=== PATIENT | female | born 1990 | race Caucasian/White ===

== ENCOUNTER 2017-09-28 16:29 | Emergency (ER) | payer MEDICAID ==
[2017-09-28 16:38] VITALS: BP 131/86
--- NOTE | 2017-09-28 17:01 | ED Physician Documentation ---
PD HPI OPHTHO - Stated complaint Stated Complaint: EYE PAIN - Chief complaint Chief Complaint: Heent - History obtained from History obtained from: Patient - History of Present Illness Timing - onset: Other (Feeling like there is grit or sand in her eye today with blurry vision, she does not wear contacts. No recent illnesses.) Review of Systems Constitutional: denies: Fever, Chills Eyes: reports: Decreased vision, Discharge, Irritation. denies: Loss of vision , Photophobia Ears: denies: Loss of hearing, Ear pain PD PAST MEDICAL HISTORY - Past Medical History Cardiovascular: None Respiratory: Asthma Neuro: Seizure disorder Endocrine/Autoimmune: None GI: None : None Psych: Depression Musculoskeletal: Fibromyalgia Derm: None - Past Surgical History Past Surgical History: Yes General: Appendectomy - Present Medications Home Medications: Ambulatory Orders Medication Instructions Recorded Confirmed Albuterol [Ventolin Hfa] 2 puffs INH Q4H PRN 11/13/13 09/28/17 Gabapentin [Neurontin] 400 mg PO TID 11/13/13 09/28/17 Topiramate [Topamax] 200 mg PO HS 11/13/13 09/28/17 Mometasone/Formoterol [Dulera 100 1 inh PO DAILY 06/09/15 09/28/17 Mcg/5 Mcg Inhaler] Montelukast Sodium [Singulair] 10 mg PO DAILY 06/09/15 09/28/17 raNITIdine [Zantac] 150 mg PO DAILY 09/28/15 09/28/17 Cyclobenzaprine [Flexeril] 10 mg PO DAILY 10/03/16 09/28/17 Loratadine 10 mg PO DAILY 10/03/16 09/28/17 Acyclovir 800 mg PO 5XD 10 Days tablet 09/28/17 Tobramycin/Dexamethasone [Tobradex 1 drops OP QID #1 drops.susp 09/28/17 Eye Drops] - Allergies Allergies/Adverse Reactions: Allergies Allergy/AdvReac Type Severity Reaction Status Date / Time aspirin Allergy Intermediate Nausea Verified 09/28/17 16:38 morphine Allergy Intermediate Respiratory Verified 09/28/17 16:38 ondansetron Allergy Emesis Verified 09/28/17 16:39 [From Zofran (as hydrochloride)] paroxetine HCl * [From Paxil] Allergy Unknown Verified 09/28/17 16:38 - Social History Does the pt smoke?: No Smoking Status: Never smoker Does the pt drink ETOH?: No Does the pt have substance abuse?: No - Immunizations Immunizations are current?: No Immunizations: TDAP >10years/unknown - POLST Patient has POLST: No PD ED PE NORMAL - Vitals Vital signs reviewed: Yes - General General: Alert and oriented X 3, No acute distress - HEENT HEENT: PERRL, EOMI, Other (She has conjunctival inflammation laterally, on fluorescein examination there is a very small uptake that is diffuse on the superolateral part of the cornea. It is not necessarily dendritic per se.) - Neuro Neuro: Alert and oriented X 3 Eye Opening: Spontaneous Motor: Obeys Commands Verbal: Oriented GCS Score: 15 - Psych Psych: Normal mood Results - Vitals Vitals: Vital Signs - 24 hr 09/28/17 16:36 Temperature 36.3 C L Heart Rate 85 Respiratory 18 Rate Blood Pressure 131/86 H O2 Saturation 100 Oxygen O2 Source Room air PD MEDICAL DECISION MAKING - ED course ED course: Small amount of fluorescein uptake is concerning although not diagnostic for very early zoster ophthalmicus. She is treated with acyclovir and TobraDex. She is advised to see her eye doctor tomorrow. Departure - Departure Disposition: 01 Home, Self Care Clinical Impression: Conjunctivitis Qualifiers: Conjunctivitis type: acute Acute conjunctivitis type: unspecified Laterality: right Qualified Code(s): H10.31 - Unspecified acute conjunctivitis, right eye Condition: Good Record reviewed to determine appropriate education?: Yes Prescriptions: Acyclovir 800 mg PO 5XD 10 Days tablet Tobramycin/Dexamethasone [Tobradex Eye Drops] 1 drops OP QID #1 drops.susp Comments: As discussed, you have a very small amount of fluorescein dye uptake in the superolateral part of your cornea. It does not necessarily appear to be consistent with viral infection at this juncture, but is concerning for an early viral infection. Take the eyedrops and the antiviral pills and follow-up with your eye doctor tomorrow for reevaluation. Return if worse. Your blood pressure was elevated today on check into the emergency department. This does not mean that you have hypertension, it is a common phenomenon to come to the emergency department and have elevated blood pressure. I recommend that you see your primary care physician within the week to have it rechecked when you are feeling better.
== END 2017-09-28 17:24 | disposition home or self-care (01) ==
LOC: ED 16:29
DX: H10.31 Unspecified acute conjunctivitis, right eye (principal); R03.0 Elevated blood-pressure reading, without diagnosis of hypertension
CPT/HCPCS: 99283

== ENCOUNTER 2019-09-03 12:00 | Emergency (ER) | payer MEDICAID ==
--- NOTE | 2019-09-03 12:35 | ED Physician Documentation ---
PD HPI CHEST PAIN - Stated complaint Stated Complaint: CHEST PX - Chief complaint Chief Complaint: Cardiac - History obtained from History obtained from: Patient - History of Present Illness Timing - onset: Other (This is a 28-year-old woman with fibromyalgia, chronic back pain. History of palpitations. Had a negative Holter monitor for 72 hours last year for same, but was asymptomatic at the time. Had a similar episode starting half an hour ago where she had 4 strong heartbeats, now just feels like her heart is beating fast and is tired. She denies pedal edema, calf gain part, control, recent travel, or shortness of breath. No current chest pain.) Review of Systems Constitutional: reports: Fatigue. denies: Fever, Chills Cardiac: reports: Chest pain / pressure, Palpitations. denies: Pedal edema, Calf pain Respiratory: denies: Dyspnea, Cough GI: denies: Abdominal Pain PD PAST MEDICAL HISTORY - Past Medical History Cardiovascular: None Respiratory: Asthma Endocrine/Autoimmune: None GI: None : None Psych: Depression Musculoskeletal: Fibromyalgia Derm: None - Past Surgical History Past Surgical History: Yes General: Appendectomy - Present Medications Home Medications: Ambulatory Orders Medication Instructions Recorded Confirmed Albuterol [Ventolin Hfa] 2 puffs INH Q4H PRN 11/13/13 09/28/17 Gabapentin [Neurontin] 400 mg PO TID 11/13/13 09/28/17 Topiramate [Topamax] 200 mg PO HS 11/13/13 09/28/17 Mometasone/Formoterol [Dulera 100 1 inh PO DAILY 06/09/15 09/28/17 Mcg/5 Mcg Inhaler] Montelukast Sodium [Singulair] 10 mg PO DAILY 06/09/15 09/28/17 raNITIdine [Zantac] 150 mg PO DAILY 09/28/15 09/28/17 Cyclobenzaprine [Flexeril] 10 mg PO DAILY 10/03/16 09/28/17 Loratadine 10 mg PO DAILY 10/03/16 09/28/17 Acyclovir 800 mg PO 5XD 10 Days tablet 09/28/17 Tobramycin/Dexamethasone [Tobradex 1 drops OP QID #1 drops.susp 09/28/17 Eye Drops] - Allergies Allergies/Adverse Reactions: Allergies Allergy/AdvReac Type Severity Reaction Status Date / Time aspirin Allergy Intermediate Nausea Verified 09/03/19 12:13 morphine Allergy Intermediate Respiratory Verified 09/03/19 12:13 ondansetron Allergy Emesis Verified 09/03/19 12:13 [From Zofran (as hydrochloride)] paroxetine HCl * [From Paxil] Allergy Unknown Verified 09/03/19 12:13 - Social History Does the pt smoke?: No Smoking Status: Never smoker Does the pt drink ETOH?: No Does the pt have substance abuse?: No - Immunizations Immunizations are current?: No Immunizations: TDAP >10years/unknown - POLST Patient has POLST: No PD ED PE NORMAL - Vitals Vital signs reviewed: Yes - General General: Alert and oriented X 3, No acute distress, Other (She is quite somnolent and difficult to arouse, in fact on initial evaluation would not wake up to voice or light touch and did wake up with a sternal rub.) - HEENT HEENT: PERRL, EOMI - Neck Neck: Supple, no meningeal sign, No bony TTP - Cardiac Cardiac: Other (Tachycardic but regular without murmur) - Respiratory Respiratory: No respiratory distress, Clear bilaterally - Abdomen Abdomen: Non tender - Derm Derm: Normal color, Warm and dry - Extremities Extremities: No edema, No calf tenderness / cord - Neuro Neuro: Alert and oriented X 3, Normal speech Results - Vitals Vitals: Vital Signs - 24 hr 09/03/19 09/03/19 12:05 12:32 Temperature 36.3 C L Heart Rate 114 H Respiratory 18 Rate Blood Pressure 128/83 H Blood Pressure 144/102 H [Left] O2 Saturation 100 Oxygen O2 Source Room air - EKG (time done) 1117 Rate: Rate (enter#) (112) Rhythm: NSR [place]: Normal Intervals: Normal [place]. No: Prolonged QT QRS: Normal Ischemia: Normal ST segments Computer interpretation: Agree with computer - Labs Labs: Laboratory Tests 09/03/19 09/03/19 09/03/19 12:30 12:48 12:48 WBC 9.4 RBC 4.98 Hgb 14.7 Hct 45.5 MCV 91.4 MCH 29.5 MCHC 32.3 RDW 13.3 Plt Count 366 MPV 9.2 Neut # (Auto) 5.8 Lymph # (Auto) 2.6 [place] # (Auto) 0.6 Eos # (Auto) 0.3 Baso # (Auto) 0.1 Absolute Nucleated RBC 0.00 Nucleated RBC % 0.0 D-Dimer Sodium 142 Potassium 3.8 Chloride 107 Carbon Dioxide 26 Anion Gap 9.0 BUN 12 Creatinine 0.9 Estimated GFR (MDRD) 75 L Glucose 83 Calcium 10.0 Total Bilirubin 0.3 AST 21 ALT 20 Alkaline Phosphatase 71 Troponin I High Sens Total Protein 8.5 H Albumin 4.3 Globulin 4.2 Albumin/Globulin Ratio 1.0 Lipase 28 Urine Color Urine Clarity Urine pH Ur Specific [place] Urine Protein Urine Glucose (UA) Urine Ketones Urine Occult Blood Urine Nitrite Urine Bilirubin Urine Urobilinogen Ur Leukocyte Esterase Ur Microscopic Review Urine Culture Comments Urine HCG, Qual Urine Opiates Screen NEGATIVE Ur Oxycodone Screen NEGATIVE Urine Methadone Screen NEGATIVE Ur Propoxyphene Screen NEGATIVE Ur Barbiturates Screen NEGATIVE Ur Tricyclics Screen NEGATIVE Ur Phencyclidine Scrn NEGATIVE Ur Amphetamine Screen NEGATIVE U Methamphetamines Scrn NEGATIVE U Benzodiazepines Scrn NEGATIVE Urine Cocaine Screen NEGATIVE U Cannabinoids Screen NEGATIVE 09/03/19 09/03/19 09/03/19 12:48 12:48 13:11 WBC RBC Hgb Hct MCV MCH MCHC RDW Plt Count MPV Neut # (Auto) Lymph # (Auto) Gentry # (Auto) Eos # (Auto) Baso # (Auto) Absolute Nucleated RBC Nucleated RBC % D-Dimer 200.9 Sodium Potassium Chloride Carbon Dioxide Anion Gap BUN Creatinine Estimated GFR (MDRD) Glucose Calcium Total Bilirubin AST ALT Alkaline Phosphatase Troponin I High Sens < 2.3 L Total Protein Albumin Globulin Albumin/Globulin Ratio Lipase Urine Color YELLOW Urine Clarity CLEAR Urine pH 7.0 Ur Specific [place] 1.015 Urine Protein NEGATIVE Urine Glucose (UA) NEGATIVE Urine Ketones NEGATIVE Urine Occult Blood NEGATIVE Urine Nitrite NEGATIVE Urine Bilirubin NEGATIVE Urine Urobilinogen 0.2 (NORMAL) Ur Leukocyte Esterase NEGATIVE Ur Microscopic Review NOT INDICATED Urine Culture Comments NOT INDICATED Urine HCG, Qual NEGATIVE Urine Opiates Screen Ur Oxycodone Screen Urine Methadone Screen Ur Propoxyphene Screen Ur Barbiturates Screen Ur Tricyclics Screen Ur Phencyclidine Scrn Ur Amphetamine Screen U Methamphetamines Scrn U Benzodiazepines Scrn Urine Cocaine Screen U Cannabinoids Screen PD MEDICAL DECISION MAKING - ED course ED course: This is a 28-year-old woman who presents with resolved atypical chest pain, the history is most consistent with resolved PVCs. Her work-up here was negative including specific testing for ACS, PE. Departure - Departure Disposition: 01 Home, Self Care Clinical Impression: Atypical chest pain Condition: Good Record reviewed to determine appropriate education?: Yes Instructions: ED Chest Pain Atypical Unkn Cause Comments: As discussed, the history give is most consistent with premature ventricular contractions which are a benign process. That said you are a symptomatic here so I cannot prove this, however specific testing for more serious etiologies such as blood clots, heart disease were negative. Return for new or worsening symptoms. Follow-up with your primary care physician, next available appointment.
[2019-09-03 12:56] LABS: BASOPHILS # (AUTO) 0.1 10^3/uL (0.0-0.1); BASOPHILS % (AUTO) 0.7 %; EOSINOPHILS # (AUTO) 0.3 10^3/uL (0.0-0.7); EOSINOPHILS % (AUTO) 3.2 %; HGB - HEMOGLOBIN 14.7 g/dL (12.0-16.0); LYMPHOCYTES # (AUTO) 2.6 10^3/uL (1.5-3.5); LYMPHOCYTES % (AUTO) 27.5 %; MEAN CORPUSCULAR HEMOGLOBIN 29.5 pg (27.0-31.0); MEAN CORPUSCULAR HGB CONC 32.3 g/dL (32.0-36.0); MEAN CORPUSCULAR VOLUME 91.4 fL (81.0-99.0); MEAN PLATELET VOLUME 9.2 fL (7.9-10.8); MONOCYTES # (AUTO) 0.6 10^3/uL (0.0-1.0); NEUTROPHILS # (AUTO) 5.8 10^3/uL (1.5-6.6); NEUTROPHILS % (AUTO) 62.3 %; PLT - PLATELET COUNT 366 10^3/uL (130-450); RED BLOOD COUNT 4.98 10^6/uL (4.20-5.40); RED CELL DISTRIBUTION WIDTH 13.3 % (12.0-15.0); WHITE BLOOD COUNT 9.4 x10^3/uL (4.8-10.8)
[2019-09-03 13:06] LABS: MUDS CUTOFF CONCENTRATIONS CUTOFF CONC BELOW:
[2019-09-03 13:07] LABS: ALBUMIN 4.3 g/dL (3.2-5.5); BILIRUBIN,TOTAL 0.3 mg/dL (0.2-1.0); CREATININE 0.9 mg/dL (0.4-1.0); TOTAL PROTEIN 8.5 g/dL (6.7-8.2)
[2019-09-03 13:08] LABS: BILIRUBIN,URINE NEGATIVE (NEGATIVE); GLUCOSE, URINE (UA) NEGATIVE (NEGATIVE); KETONES,URINE (UA) NEGATIVE (NEGATIVE); LEUKOCYTE ESTERASE, URINE NEGATIVE (NEGATIVE); NITRITE,URINE NEGATIVE (NEGATIVE); OCCULT BLOOD,URINE NEGATIVE (NEGATIVE); PROTEIN,URINE NEGATIVE (NEGATIVE); UROBILINOGEN,URINE 0.2 (NORMAL) E.U./dL (NORMAL)
[2019-09-03 13:12] LABS: CLARITY,URINE CLEAR (CLEAR); HCG UR QUAL NEGATIVE
[2019-09-03 13:20] LABS: AMPHETAMINE SCREEN,URINE NEGATIVE (NEGATIVE); BENZODIAZEPINES SCREEN, URINE NEGATIVE (NEGATIVE); COCAINE SCREEN URINE NEGATIVE (NEGATIVE); METHADONE SCREEN, URINE NEGATIVE (NEGATIVE); METHAMPHETAMINES SCREEN, URINE NEGATIVE (NEGATIVE); OPIATE SCREEN, URINE NEGATIVE (NEGATIVE); OXYCODONE SCREEN, URINE NEGATIVE (NEGATIVE); PROPOXYPHENE SCREEN, URINE NEGATIVE (NEGATIVE); TRICYCLIC ANTIDEPRESSANT,URINE NEGATIVE (NEGATIVE)
[2019-09-03 13:44] VITALS: BP 122/77
== END 2019-09-03 13:45 | disposition home or self-care (01) ==
LOC: ED 12:00
DX: R07.89 Other chest pain (principal)
CPT/HCPCS: 36415; 80053; 80306; 81001; 81003; 81025; 83690; 84484; 85025; 85379; 87086; 93005; 99283; 99284

== ENCOUNTER 2021-11-08 09:09 | Emergency (ER) | payer MEDICAID ==
[2021-11-08 09:19] VITALS: BP 142/89
--- NOTE | 2021-11-08 09:24 | ED Physician Documentation ---
History of Present Illness - Stated complaint Stated Complaint: BODY ACHES/FEVER/CHILLS - Chief complaint Chief Complaint: Resp - History obtained from History obtained from: Patient - Additonal information Additional information: 31-year-old woman with history of asthma. Has been immunized against COVID with [employer], no booster. She has been sick for 10 days with cough, body aches, chills and fever. Her roommate subsequently tested positive for COVID a few days ago. She has not been tested for COVID but tried to go to her doctor's office for same but they were not offering COVID testing. 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 : None HEENT: None Psych: Depression Musculoskeletal: Fibromyalgia Derm: None - Past Surgical History Past Surgical History: Yes General: Appendectomy - Present Medications Home Medications: Ambulatory Orders Medication Instructions Recorded Confirmed Albuterol [Ventolin Hfa] 2 puffs INH Q4H PRN 11/13/13 09/28/17 Gabapentin [Neurontin] 400 mg PO TID 11/13/13 09/28/17 Topiramate [Topamax] 200 mg PO HS 11/13/13 09/28/17 Mometasone/Formoterol [Dulera 100 1 inh PO DAILY 06/09/15 09/28/17 Mcg/5 Mcg Inhaler] Montelukast Sodium [Singulair] 10 mg PO DAILY 06/09/15 09/28/17 raNITIdine [Zantac] 150 mg PO DAILY 09/28/15 09/28/17 Cyclobenzaprine [Flexeril] 10 mg PO DAILY 10/03/16 09/28/17 Loratadine 10 mg PO DAILY 10/03/16 09/28/17 Acyclovir 800 mg PO 5XD 10 Days tablet 09/28/17 Tobramycin/Dexamethasone [Tobradex 1 drops OP QID #1 drops.susp 09/28/17 Eye Drops] Benzonatate [Tessalon] 200 mg PO QID PRN #20 cap 11/08/21 predniSONE [Deltasone] 60 mg PO DAILY 5 Days #15 tablet 11/08/21 - Allergies Allergies/Adverse Reactions: Allergies Allergy/AdvReac Type Severity Reaction Status Date / Time aspirin Allergy Intermediate Nausea Verified 09/03/19 12:13 morphine Allergy Intermediate Respiratory Verified 09/03/19 12:13 ondansetron Allergy Emesis Verified 09/03/19 12:13 [From Zofran (as hydrochloride)] paroxetine HCl * [From Paxil] Allergy Unknown Verified 09/03/19 12:13 pseudoephedrine Allergy Dizziness Verified 11/08/21 09:16 [From Sudafed] - Social History Does the pt smoke?: No Smoking Status: Never smoker Does the pt drink ETOH?: No Does the pt have substance abuse?: No - Immunizations Immunizations are current?: No Immunizations: TDAP >10years/unknown - POLST Patient has POLST: No PD ED PE NORMAL - Vitals Vital signs reviewed: Yes - General General: Alert and oriented X 3, No acute distress - HEENT HEENT: Ears normal, Pharynx benign - Neck Neck: Supple, no meningeal sign, No bony TTP - Cardiac Cardiac: RRR, No murmur - Respiratory Respiratory: No respiratory distress (Mild expiratory wheezing, nonlabored without other focal findings.) - Abdomen Abdomen: Non tender - Back Back: No CVA TTP, No spinal TTP - Derm Derm: Normal color, Warm and dry - Extremities Extremities: No edema, No calf tenderness / cord - Neuro Neuro: Alert and oriented X 3, Normal speech Results - Vitals Vitals: Vital Signs - 24 hr 11/08/21 09:17 Temperature 36.6 C Heart Rate 120 H Respiratory 22 Rate Blood Pressure 142/89 H O2 Saturation 98 Oxygen O2 Source Room air PD MEDICAL DECISION MAKING - ED course ED course: 31-year-old woman with mild asthma exacerbation in the setting of viral URI, likely COVID and will test for same. We will treat with steroids for the wheezing and Tessalon for the cough. Departure - Departure Disposition: 01 Home, Self Care Clinical Impression: Viral syndrome, Asthma Condition: Good Record reviewed to determine appropriate education?: Yes Instructions: ED Viral Syndrome Prescriptions: predniSONE [Deltasone] 60 mg PO DAILY 5 Days #15 tablet Benzonatate [Tessalon] 200 mg PO QID PRN #20 cap PRN Reason: Cough Comments: Prescriptions were sent electronically to [facility] in [place]. You have a Covid test pending. You need to self quarantine until the result is done and negative. Do not leave your house. Do not get near anybody. The results should be done in 48 to 72 hours. We will call with a positive result, the fastest way to get a negative result for confirmation though is to go to the hospital website at [email or web address], click on the my [facility] tab and sign up for the patient portal. If any friends or family get sick and would like to have a Covid test done, but do not have signs or symptoms that would necessitate being hospitalized, there are multiple local options for Covid testing. [facility] keeps an updated list of testing and vaccination options at: [email or web address]. Forms: Activity restrictions
== END 2021-11-08 09:44 | disposition home or self-care (01) ==
LOC: ED 09:09
DX: U07.1 COVID-19 (principal); J45.909 Unspecified asthma, uncomplicated
CPT/HCPCS: 99283

== ENCOUNTER 2022-01-10 18:10 | Emergency (ER) | payer OTHER, MEDICAID ==
--- OUTSIDE RECORDS SUMMARY | 2022-01-10 18:41 | EXTERNAL MEDICAL SUMMARY RPT | Continuity of Care Document ---
:1990 Author Organization [facility] Address [address] [place] [address] Phone Care Team Providers Name Role Phone Ferrer Unavailable Unavailable Allergies No information. Encounters No information. Medications No information. Problems Procedures date description facility [id number] [facility] 20211021 [facility] Results No information. Vital Signs date measurement value source 20211021 weight_standard 102.97 lb 20211021 weight_metric 46.7 kg 20211021 temperature_standard 97.4 F 20211021 temperature_metric 36.33 C 20211021 respiration_rate 20 /min 20211021 height_standard 61 in 20211021 height_metric 154.94 cm 20211021 heart_rate 86 /min 20211021 BP_systolic 106 mm[Hg] 20211021 BP_diastolic 63 mm[Hg] 20211021 BMI 42.9 kg/m2 20211101 weight_standard 103.42 lb 20211101 weight_metric 46.91 kg 20211101 temperature_standard 98 F 20211101 temperature_metric 36.67 C 20211101 respiration_rate 20 /min 20211101 heart_rate 80 /min 20211101 BP_systolic 135 mm[Hg] 20211101 BP_diastolic 80 mm[Hg]
--- NOTE | 2022-01-10 18:44 | XRAY Report ---
PROCEDURE: Ankle 3 View RT INDICATIONS: Trauma TECHNIQUE: 3 views of the ankle were acquired. COMPARISON: 09/28/2015 FINDINGS: Bones: No fractures or dislocations. Ankle mortise is normally aligned. No suspicious bony lesions . Small plantar calcaneal spur. Soft tissues: No tibiotalar joint effusion. Achilles tendon appears normal. IMPRESSION: Right ankle without acute fracture or dislocation. Small right plantar calcaneal spur. If there is persistent clinical concern for a radiographically occult fracture, recommend immobilizat ion and repeat imaging in 10 to 14 days. Reviewed by: Que Hernandez MD on 01/10/2022 6:43 PM PDT Approved by: Que Hernandez MD on 01/10/2022 6:43 PM PDT Station ID: [id number]
[2022-01-10] MEDS ORDERED: ACETAMINOPHEN 325 MG TABLET PO STA (21:21)
[2022-01-10 21:34] VITALS: BP 122/77
--- NOTE | 2022-01-10 21:56 | ED Physician Documentation ---
PD HPI LOWER EXT INJURY - Stated complaint Stated Complaint: R LEG PAIN - Chief complaint Chief Complaint: Trauma Ext - History obtained from History obtained from: Patient - Additional information Additional information: Patient was at work this morning at 6:30 AM when she was carrying something through a doorway and rolled her right ankle and fell onto her leg. She reports injury to the right knee and right ankle. She has been able to ambulate but has mostly been laying in bed today as she worked overnight. Due to continued pain, patient presented to the emergency department.The pain is sharp and throbbing and worse with ambulation. She denies previous injuries to the extremity. She has not tried medication for the pain. There is no pain elsewhere. She did not hit her head or lose consciousness. 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 HEENT: None Psych: Depression, Anxiety Musculoskeletal: Fibromyalgia Derm: None - Past Surgical History Past Surgical History: Yes General: Appendectomy - Present Medications Home Medications: Ambulatory Orders Medication Instructions Recorded Confirmed Albuterol [Ventolin Hfa] 2 puffs INH Q4H PRN 11/13/13 01/10/22 Gabapentin [Neurontin] 400 mg PO TID 11/13/13 01/10/22 Topiramate [Topamax] 200 mg PO HS 11/13/13 01/10/22 Montelukast Sodium [Singulair] 10 mg PO DAILY 06/09/15 01/10/22 Duloxetine HCl [Cymbalta] 60 mg PO DAILY 01/10/22 01/10/22 - Allergies Allergies/Adverse Reactions: Allergies Allergy/AdvReac Type Severity Reaction Status Date / Time aspirin Allergy Intermediate Nausea Verified 01/10/22 18:17 morphine Allergy Intermediate Respiratory Verified 01/10/22 18:17 ondansetron Allergy Emesis Verified 01/10/22 18:17 [From Zofran (as hydrochloride)] paroxetine HCl * [From Paxil] Allergy Unknown Verified 01/10/22 18:17 pseudoephedrine Allergy Dizziness Verified 01/10/22 18:17 [From Sudafed] - Social History Does the pt smoke?: No Smoking Status: Never smoker Does the pt drink ETOH?: No Does the pt have substance abuse?: No - Immunizations Immunizations are current?: No Immunizations: TDAP >10years/unknown - POLST Patient has POLST: No PD ED PE NORMAL - General General: Alert and oriented X 3, No acute distress, Well developed/nourished - HEENT HEENT: Atraumatic, EOMI - Neck Neck: Supple, no meningeal sign, C-Spine cleared by NEXUS criteria - Cardiac Cardiac: RRR - Respiratory Respiratory: No respiratory distress, Clear bilaterally - Derm Derm: Normal color, Warm and dry - Extremities Extremities: No deformity - Neuro Neuro: No motor deficit, No sensory deficit, Normal speech - Psych Psych: Normal mood, Normal affect PD ED PE EXPANDED - Extremities Extremities: Tenderness (Lateral right ankle, Compartments of extremity are soft, Palpable distal pulses,), Right knee (Pain with range of motion, no laxity, no erythema, no swelling, no deformity), Pedal Pulses Present, Motor intact, Sensory intact Results - Vitals Vitals: Vital Signs - 24 hr 01/10/22 01/10/22 18:17 21:28 Temperature 36.5 C Heart Rate 100 97 Respiratory 16 14 Rate Blood Pressure 134/89 H 122/77 O2 Saturation 100 98 Oxygen O2 Source Room air PD MEDICAL DECISION MAKING - ED course ED course: Patient with mechanical injury presenting for evaluation of the right knee and ankle pain. No head injury or trauma elsewhere.No neuro or vascular deficits noted on exam.X-rays are negative for fracture or dislocation. Patient was given Aircast and crutches. She was instructed on continuing with supportive care and return precautions. Departure - Departure Disposition: 01 Home, Self Care Clinical Impression: Ankle injury Qualifiers: Encounter type: initial encounter Laterality: right Qualified Code(s): S99.911A - Unspecified injury of right ankle, initial encounter Knee injury Qualifiers: Encounter type: initial encounter Laterality: right Qualified Code(s): S89.91XA - Unspecified injury of right lower leg, initial encounter Condition: Stable Instructions: ED Sprain Ankle W X Ray, ED Sprain Knee Comments: The x-rays of your ankle and knee are both negative for a broken bone or a bone out of place. You likely have a sprain. You should use the Saul wrap and crutches as neededAs long as you are having pain when attempting to walk. You should additionally use ice and anti-inflammatory medication such as Motrin or Tylenol for pain. Please follow-up with your primary care doctor if the pain does not improve in a week. Forms: Activity restrictions Discharge Date/Time: 01/10/22 22:15
--- NOTE | 2022-01-10 22:31 | XRAY Report ---
PROCEDURE: Knee 2 View RT INDICATIONS: pain TECHNIQUE: 2 views of the right knee(s) were acquired. COMPARISON: None. FINDINGS: Bones: No fractures or dislocations. No suspicious bony lesions. Soft tissues: No joint effusion. No suspicious soft tissue calcifications. IMPRESSION: No fracture. No osseous lesion. If there are persistent symptoms or continued clinical concern for p athology, then repeat plain film radiographs (7-10 days) or advanced imaging (CT, MR, bone scan) shou ld be considered for further evaluation. Reviewed by: María Elena Holloway MD, PhD on 01/10/2022 10:30 PM PDT Approved by: María Elena Holloway MD, PhD on 01/10/2022 10:30 PM PDT Station ID: [id number]
== END 2022-01-10 22:15 | disposition home or self-care (01) ==
LOC: ED 18:10
DX: S99.911A Unspecified injury of right ankle, initial encounter (principal); S89.91XA Unspecified injury of right lower leg, initial encounter; X50.1XXA Overexertion from prolonged static or awkward postures, initial encounter; Y93.89 Activity, other specified; Y99.0 Civilian activity done for income or pay
CPT/HCPCS: 1040M; 73560; 73610; 99282; 99284; A9270

== ENCOUNTER 2022-03-08 18:41 | Emergency (ER) | payer MEDICAID ==
[2022-03-08] MEDS ORDERED: oxyCODONE 5 MG TABLET PO STA (19:01)
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
--- NOTE | 2022-03-08 20:19 | CT Report ---
PROCEDURE: HEAD WO INDICATIONS: head/neck inj TECHNIQUE: Noncontrast 4.5 mm thick angled axial sections acquired from the foramen magnum to the vertex. For r adiation dose reduction, the following was used: automated exposure control, adjustment of mA and/or kV according to patient size. COMPARISON: None. FINDINGS: Image quality: Excellent. CSF spaces: Basal cisterns are patent. No extra-axial fluid collections. Ventricles are normal in size and shape. Brain: No midline shift. No intracranial masses or hemorrhage. Bueno-white matter interface is norm al. Skull and face: Calvarium and visualized facial bones are intact, without suspicious lesions. Sinuses: Visualized sinuses and mastoids are clear. IMPRESSION: No acute intracranial finding. Reviewed by: Bill Nazario MD on 03/08/2022 8:18 PM PDT Approved by: Bill Nazario MD on 03/08/2022 8:18 PM PDT Station ID: [id number]
--- NOTE | 2022-03-08 20:22 | CT Report ---
PROCEDURE: CERVICAL SPINE WO INDICATIONS: head/neck inj TECHNIQUE: Noncontrast 3 mm thick sections acquired from the skull base to the T4 level. Sagittal and coronal r eformats were then constructed. For radiation dose reduction, the following was used: automated exp osure control, adjustment of mA and/or kV according to patient size. COMPARISON: None. FINDINGS: Image quality: Excellent. Bones: No fractures or dislocations. Visualized superior ribs are intact. Soft tissues: Numerous threshold enlarged and prominent bilateral cervical lymph nodes, left greater than right, with mild prominence of the bilateral supraclavicular lymph nodes also. IMPRESSION: No CT evidence of acute traumatic cervical spine injury. Bilateral cervical and supraclavicular lymphadenopathy is worrisome for metastatic disease or lymphop roliferative disorder, although a systemic infectious or inflammatory process could cause a similar a ppearance. Clinical correlation is requested. Follow-up to document resolution is recommended. Low th reshold for FNA to obtain a tissue diagnosis is also recommended. Reviewed by: Bill Nazario MD on 03/08/2022 8:21 PM PDT Approved by: Bill Nazario MD on 03/08/2022 8:21 PM PDT Station ID: [id number]
[2022-03-08 20:30] VITALS: BP 119/70
[2022-03-08] MEDS ORDERED: oxyCODONE/ACET 5/325 Prepack 4 PO STA (20:39)
== END 2022-03-08 20:52 | disposition home or self-care (01) ==
LOC: ED 18:41
DX: S09.90XA Unspecified injury of head, initial encounter (principal); S19.9XXA Unspecified injury of neck, initial encounter; W20.8XXA Other cause of strike by thrown, projected or falling object, initial encounter; R59.1 Generalized enlarged lymph nodes
CPT/HCPCS: 70450; 72125; 99282; 99284; A9270

== ENCOUNTER 2022-09-04 21:22 | Outpatient (CLI) | payer MEDICAID | END 2022-09-04 21:23 | disposition critical access hospital (66) | LOC: EMS 21:22 | DX: T39.392A Poisoning by other nonsteroidal anti-inflammatory drugs [NSAID], intentional self-harm, initial encounter (principal); T50.902A Poisoning by unspecified drugs, medicaments and biological substances, intentional self-harm, initial encounter; R42 Dizziness and giddiness; R53.83 Other fatigue | CPT/HCPCS: A0425; A0429; A0999 ==

== ENCOUNTER 2022-09-04 21:40 | Emergency (ER) | payer MEDICAID ==
[2022-09-04] MEDS ORDERED: MAG HYDROX/AL HYDROX/SIMETH 30 ML UDC PO STA (22:39)
[2022-09-04 22:51] LABS: MUDS CUTOFF CONCENTRATIONS CUTOFF CONC BELOW:
[2022-09-04 22:53] LABS: BILIRUBIN,URINE NEGATIVE (NEGATIVE); GLUCOSE, URINE (UA) NEGATIVE (NEGATIVE); KETONES,URINE (UA) NEGATIVE (NEGATIVE); LEUKOCYTE ESTERASE, URINE NEGATIVE (NEGATIVE); NITRITE,URINE NEGATIVE (NEGATIVE); OCCULT BLOOD,URINE NEGATIVE (NEGATIVE); PROTEIN,URINE NEGATIVE (NEGATIVE); UROBILINOGEN,URINE 0.2 (NORMAL) E.U./dL (NORMAL)
[2022-09-04 22:56] LABS: ACETAMINOPHEN < 10 ug/mL (10-30); ALBUMIN/GLOBULIN RATIO 1.1 (1.0-2.2); ALKALINE PHOSPHATASE 78 IU/L (42-121); ALT ALANINE AMINOTRANSFERASE 28 IU/L (10-60); AST ASPARTATE AMINOTRANSFERASE 32 IU/L (10-42); BILIRUBIN,TOTAL 0.8 mg/dL (0.2-1.0); BUN - BLOOD UREA NITROGEN 13 mg/dL (6-20); CALCIUM 9.2 mg/dL (8.5-10.3); CARBON DIOXIDE - CO2 20 mmol/L (21-32); CHLORIDE 107 mmol/L (101-111); CREATININE 0.7 mg/dL (0.4-1.0); ETOH - ETHANOL < 5.0 mg/dL; GFR - MDRD 98 (>89); GLUCOSE 90 mg/dL (70-100); LIPASE 23 U/L (22-51); SALICYLATE < 6.0 mg/dL; SODIUM 136 mmol/L (135-145); TOTAL PROTEIN 7.7 g/dL (6.7-8.2)
[2022-09-04 23:03] LABS: CLARITY,URINE CLEAR (CLEAR); HCG UR QUAL NEGATIVE
[2022-09-04 23:04] LABS: AMPHETAMINE SCREEN,URINE NEGATIVE (NEGATIVE); BARBITURATE SCREEN,UR NEGATIVE (NEGATIVE); BENZODIAZEPINES SCREEN, URINE NEGATIVE (NEGATIVE); COCAINE SCREEN URINE NEGATIVE (NEGATIVE); METHADONE SCREEN, URINE NEGATIVE (NEGATIVE); METHAMPHETAMINES SCREEN, URINE NEGATIVE (NEGATIVE); OPIATE SCREEN, URINE NEGATIVE (NEGATIVE); OXYCODONE SCREEN, URINE NEGATIVE (NEGATIVE); PROPOXYPHENE SCREEN, URINE NEGATIVE (NEGATIVE); THC CANNABINOID SCREEN, URINE NEGATIVE (NEGATIVE); TRICYCLIC ANTIDEPRESSANT,URINE NEGATIVE (NEGATIVE)
--- NOTE | 2022-09-05 03:35 | ED Physician Documentation ---
PD HPI OVERDOSE - Stated complaint Stated Complaint: SI/OD - Chief complaint Chief Complaint: MHE - History obtained from History obtained from: Patient, EMS - History of Present Illness Timing - onset: How many hours ago (3), Today Subtance(s) ingested: Multiple (Meloxicam (20 tabs) and ? some muscle relaxant (6 tabs)). No: EtOH, ASA, Tylenol Associated symptoms: Other (feeling mild nausea without vomiting. Mild lightheaded. Still has some feeling of might overdose more if were still at home; feeling safe here.). No: Altered mental status Contributing factors: Suicidal (Patient had an argument with her godmother who is her lives with her. The patient got upset and felt that she wanted to kill her self and took overdose of meloxicam and muscle relaxant. She then thought better and texted a friend what she had done. EMS was called.). No: Alchoholic, Substance abuse Similar symptoms before: Diagnosis (some depression with suicidal ideation in the past. No attempts.) Recently seen: Not recently seen Review of Systems Constitutional: denies: Fever, Chills Nose: denies: Rhinorrhea / runny nose, Congestion Throat: denies: Sore throat Respiratory: denies: Cough GI: reports: Nausea (mild). 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 : None HEENT: None Psych: Depression, Anxiety, Post traumatic stress disorder Musculoskeletal: Fibromyalgia Derm: None - Past Surgical History Past Surgical History: Yes General: Appendectomy - Present Medications Home Medications: Ambulatory Orders Medication Instructions Recorded Confirmed Albuterol [Ventolin Hfa] 2 puffs INH Q4H PRN 11/13/13 06/17/22 Gabapentin [Neurontin] 800 mg PO BID 11/13/13 06/17/22 Topiramate [Topamax] 200 mg PO HS 11/13/13 06/17/22 Montelukast Sodium [Singulair] 10 mg PO DAILY 06/09/15 06/17/22 Duloxetine HCl [Cymbalta] 60 mg PO DAILY 01/10/22 06/17/22 Cyclobenzaprine [Flexeril] 10 mg PO TID PRN 06/17/22 06/17/22 Meloxicam [Mobic] 7.5 mg PO DAILY 06/17/22 06/17/22 - Allergies Allergies/Adverse Reactions: Allergies Allergy/AdvReac Type Severity Reaction Status Date / Time aspirin Allergy Intermediate Nausea Verified 06/17/22 00:55 morphine Allergy Intermediate Respiratory Verified 06/17/22 00:55 ondansetron Allergy Emesis Verified 06/17/22 00:55 [From Zofran (as hydrochloride)] paroxetine HCl * [From Paxil] Allergy Unknown Verified 06/17/22 00:55 pseudoephedrine Allergy Dizziness Verified 06/17/22 00:55 [From Sudafed] ibuprofen AdvReac Cramps Verified 06/17/22 00:55 - Living Situation Living Situation: reports: With family Living Arrangement: reports: At home - Social History Does the pt smoke?: No Smoking Status: Never smoker Does the pt drink ETOH?: No Does the pt have substance abuse?: No - Immunizations Immunizations are current?: No Immunizations: TDAP >10years/unknown - POLST Patient has POLST: No PD ED PE NORMAL - Vitals Vital signs reviewed: Yes - General General: Alert and oriented X 3, No acute distress, Well developed/nourished - HEENT HEENT: Moist mucous membranes, Pharynx benign - Neck Neck: Supple, no meningeal sign, No adenopathy - Cardiac Cardiac: No murmur. No: RRR (tachycardic, regular. ) - Respiratory Respiratory: Clear bilaterally - Abdomen Abdomen: Normal bowel sounds, Soft, Non tender - Derm Derm: Normal color, Warm and dry - Extremities Extremities: Normal ROM s pain, No edema, No calf tenderness / cord - Neuro Neuro: Alert and oriented X 3, No motor deficit, Normal speech Eye Opening: Spontaneous Motor: Obeys Commands Verbal: Oriented GCS Score: 15 - Psych Psych: Normal mood Results - Vitals Vitals: Vital Signs - 24 hr 09/04/22 09/04/22 22:19 23:02 Temperature 36.6 C Heart Rate 136 H 71 Respiratory 14 14 Rate Blood Pressure 140/100 H 126/111 H O2 Saturation 100 100 Oxygen O2 Source Room air - Labs Labs: Laboratory Tests 09/04/22 09/04/22 09/04/22 22:31 22:31 22:42 Sodium 136 Potassium 4.0 Chloride 107 Carbon Dioxide 20 L Anion Gap 9.0 BUN 13 Creatinine 0.7 Estimated GFR (MDRD) 98 Glucose 90 Calcium 9.2 Total Bilirubin 0.8 AST 32 ALT 28 Alkaline Phosphatase 78 Total Protein 7.7 Albumin 4.0 Globulin 3.7 Albumin/Globulin Ratio 1.1 Lipase 23 TSH 1.14 Urine Color YELLOW Urine Clarity CLEAR Urine pH 6.0 Ur Specific Calhoun <=1.005 Urine Protein NEGATIVE Urine Glucose (UA) NEGATIVE Urine Ketones NEGATIVE Urine Occult Blood NEGATIVE Urine Nitrite NEGATIVE Urine Bilirubin NEGATIVE Urine Urobilinogen 0.2 (NORMAL) Ur Leukocyte Esterase NEGATIVE Ur Microscopic Review NOT INDICATED Urine Culture Comments NOT INDICATED Urine HCG, Qual NEGATIVE Salicylates < 6.0 Urine Opiates Screen NEGATIVE Ur Oxycodone Screen NEGATIVE Urine Methadone Screen NEGATIVE Ur Propoxyphene Screen NEGATIVE Acetaminophen < 10 L Ur Barbiturates Screen NEGATIVE Ur Tricyclics Screen NEGATIVE Ur Phencyclidine Scrn NEGATIVE Ur Amphetamine Screen NEGATIVE U Methamphetamines Scrn NEGATIVE U Benzodiazepines Scrn NEGATIVE Urine Cocaine Screen NEGATIVE U Cannabinoids Screen NEGATIVE Ethyl Alcohol < 5.0 PD MEDICAL DECISION MAKING - ED course Complexity details: considered differential (Intentional overdose with suicidal intent and then reconsidered and called for help. Feels uncertain about impulse control at this point. States will not hurt her self here. The meloxicam can lead to upset stomach and possibly acidosis. Can check blood test. Unknown muscle relaxant.), d/w patient ED course: The patient appears well on presentation except for tachycardia. The meloxicam can upset her stomach. Can give some antacid and fluids and nausea medicine. Unknown muscle relaxants so consideration for sedation and even the potential for abnormal heart rate and blood pressure. Some of the muscle relaxants can have more significant side effects, for example Flexeril ask as a tetracycline. We will get urine tox and give fluids and some medication. The patient does not need for discharge at this point with still some suicidal ideation and her self concern for impulse control. I think she may feel better after resting some in time in the ER. We will have social work talk with her in the morning. She is willing for help so does not seem in the purview of DCR. Departure - Departure Clinical Impression: Suicidal ideation Intentional overdose Qualifiers: Encounter type: initial encounter Qualified Code(s): T50.902A - Poisoning by unspecified drugs, medicaments and biological substances, intentional self-harm, initial encounter Condition: Stable Record reviewed to determine appropriate education?: Yes
[2022-09-05 06:32] LABS: BASOPHILS # (AUTO) 0.1 10^3/uL (0.0-0.1); EOSINOPHILS # (AUTO) 0.4 10^3/uL (0.0-0.7); HCT - HEMATOCRIT 40.5 % (37.0-47.0); LYMPHOCYTES % (AUTO) 18.9 %; MEAN CORPUSCULAR HEMOGLOBIN 28.8 pg (27.0-31.0); MEAN CORPUSCULAR HGB CONC 32.1 g/dL (32.0-36.0); MEAN CORPUSCULAR VOLUME 89.8 fL (81.0-99.0); MEAN PLATELET VOLUME 9.3 fL (7.9-10.8); MONOCYTES # (AUTO) 0.7 10^3/uL (0.0-1.0); MONOCYTES % (AUTO) 6.2 %; NEUTROPHILS # (AUTO) 7.3 10^3/uL (1.5-6.6); NEUTROPHILS % (AUTO) 69.5 %; PLT - PLATELET COUNT 332 10^3/uL (130-450); RED BLOOD COUNT 4.51 10^6/uL (4.20-5.40); WHITE BLOOD COUNT 10.5 x10^3/uL (4.8-10.8)
--- NOTE | 2022-09-05 07:40 | ED Physician Documentation ---
ED Addendum - Addendum Addendum: 09/05/22 19:20 Patient 31-year-old female presenting to the emergency department after acute overdose with suicidal ideation. Initially seen by off going physician, please see their documentation for further detail.Patient monitored carefully throughout my shift. He did have interview with telepsych. At this time recommending voluntary placement. We will be signing out to the oncoming physician, please see their documentation for further detail.
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
--- NOTE | 2022-09-06 10:25 | TELEPSYCH PHYS NOTE ---
Telepsych Consultation Note Consult: Name: Janeth Almendarez : 1990 Date:09/06/2022 Time: 1:21 PM Location of patient: [facility] Location of doctor: [place] Spoke with: Dr. hunter HPI: per initial evaluation 09/05/22: 31y/o swf with h/o PTSD comes in with c/o feeling depressed and making a suicide attempt by OD. PT says she had been depressed for a while and thought of suicide before, wrote a note but this is the first time she has gone through with her thoughts. She does have a h/o self harm but this was the first time she intended to end her life. She continues to say it would not matter if she . She took the whole bottle of pills with the thought that life does not matter. reports the patient now reported feeling better with a night of sleep and wanting to go home. after reviewing the psychiatrist note and evaluation. Plan: recommend that the patient have a DCR evaluation as the patient continues to be high risk and no changes in her social determinants contributing to her presentations List names and roles of persons who participated in consult: Dr. hunter
--- NOTE | 2022-09-06 13:32 | ED Physician Documentation ---
ED Addendum - Addendum Addendum: 09/06/22 13:30 Patient received a signout from outgoing physician, please see their do cumentation for further detail. In short patient being evaluated in the emergency department after intentional suicide attempt. Overdosed on meloxicam and muscle relaxers. Was medically cleared and evaluated by telepsychiatry. Initial recommendation was for voluntary inpatient treatment. This morning patient awakens, feeling significantly better. Denies any ongoing suicidal or homicidal ideation. Denies any plan for self-harm. Evaluated by social work who did arrange for outpatient follow-up. Discussed the case directly with telepsychiatry who asked for DCR evaluation. Patient was subsequently evaluated by DCR and will not be detained at this time. Patient feels comfortable with plan for discharge and continues to deny suicidal or homicidal ideation. Clear return precautions and follow-up instructions given prior to discharge.
[2022-09-06 13:54] VITALS: BP 134/83
== END 2022-09-06 13:53 | disposition home or self-care (01) ==
LOC: EDUNIT# → ED 21:40
DX: F33.2 Major depressive disorder, recurrent severe without psychotic features (principal); F43.12 Post-traumatic stress disorder, chronic; T39.392A Poisoning by other nonsteroidal anti-inflammatory drugs [NSAID], intentional self-harm, initial encounter; R00.0 Tachycardia, unspecified; Z20.822 Contact with and (suspected) exposure to COVID-19
CPT/HCPCS: 36415; 80053; 80306; 80307; 80320; 80329; 81003; 81025; 83690; 84443; 85025; 87635; 90834; 99283; 99284; A9270; 81001; 87086

== ENCOUNTER 2023-01-05 11:18 | Outpatient (CLI) | payer MEDICAID ==
[2023-01-06 07:10] LABS: DHEA-SULFATE 69.6 ug/dL (84.8-378.0); SEX HORM BINDING GLOB SERUM 31.9 nmol/L (24.6-122.0)
== END 2023-01-05 11:19 | disposition home or self-care (01) ==
LOC: LAB 11:18
PROVIDERS: ATTEND Nurse Practitioner
DX: N92.6 Irregular menstruation, unspecified (principal)
CPT/HCPCS: 36415; 82627; 82670; 84270

== ENCOUNTER 2023-02-10 16:29 | Emergency (ER) | payer MEDICAID ==
[2023-02-10 16:36] VITALS: BP 140/90
--- NOTE | 2023-02-10 17:14 | ED Physician Documentation ---
PD HPI HEADACHE - Stated complaint Stated Complaint: HEAD PX - Chief complaint Chief Complaint: Neuro - History obtained from History obtained from: Patient - History of Present Illness Timing - onset: Today Timing - onset during: Rest Timing - duration: Days (1) Timing - details: Gradual onset Pain level max: 5 Pain level now: 0 Quality: No: Thunderclap, Throbbing, Aching, Stabbing, Tightness, Like head is exploding Associated symptoms: No: Fever, Stiff neck, Nausea, Vomiting, Weakness, Numbness, Syncope, Seizure Contributing factors: No: Anticoagulated - Additional information Additional information: 32-year-old female presents to the emergency department complaining of sharp shooting pains on the left side of the face that go up by the left eye or so metimes down to the cheek. Started yesterday. Seems to occur randomly. No headache with this. No visual changes. Nothing makes it better or worse. No fevers, vomiting, nausea Review of Systems Constitutional: denies: Fever, Chills GI: denies: Vomiting, Diarrhea Skin: denies: Rash Musculoskeletal: denies: Neck pain, Back pain Neurologic: denies: Headache PD PAST MEDICAL HISTORY - Past Medical History Past Medical History: Yes Cardiovascular: None Respiratory: Asthma Neuro: Migraines Endocrine/Autoimmune: None GI: None [employer]ATOR: None : None HEENT: None Psych: Depression, Anxiety, Post traumatic stress disorder, Other Musculoskeletal: Fibromyalgia Derm: None Other Past Medical History: SI attempt - Past Surgical History Past Surgical History: Yes General: Appendectomy - Present Medications Home Medications: Ambulatory Orders Medication Instructions Recorded Confirmed Albuterol [Ventolin Hfa] 2 puffs INH Q4H PRN 11/13/13 02/10/23 Gabapentin [Neurontin] 800 mg PO TID 11/13/13 02/10/23 Topiramate [Topamax] 100 mg PO BID 11/13/13 02/10/23 Montelukast Sodium [Singulair] 10 mg PO DAILY 06/09/15 02/10/23 Cyclobenzaprine [Flexeril] 10 mg PO BID 06/17/22 02/10/23 DULoxetine [Cymbalta] 20 mg ORAL BID 09/05/22 02/10/23 Galcanezumab-Gnlm [Emgality] 120 mg SQ Q28D 09/05/22 02/10/23 Loratadine [Allergy Relief] 10 mg PO DAILY 09/05/22 02/10/23 Meclizine HCl [Motion Sickness] 25 mg PO DAILY PRN 09/05/22 02/10/23 Mometasone/Formoterol [Dulera 50 1 puffs IH BID 09/05/22 02/10/23 Mcg-5 Mcg Inhaler] Sumatriptan Succinate [Imitrex] 50 mg PO PRN PRN 09/05/22 02/10/23 EPINEPHrine [Epipen Jr] 0.15 mg IM ONCE PRN 02/10/23 02/10/23 Medroxyprogesterone Acetate 104 mg SQ ONCE 02/10/23 02/10/23 [Depo-Subq Provera 104] carBAMazepine [Tegretol Xr] 100 mg PO BID #60 ea 02/10/23 - Allergies Allergies/Adverse Reactions: Allergies Allergy/AdvReac Type Severity Reaction Status Date / Time aspirin Allergy Intermediate Nausea Verified 02/10/23 16:32 morphine Allergy Intermediate Respiratory Verified 02/10/23 16:32 basil Allergy Anaphylaxis Verified 02/10/23 17:06 dex Allergy Anaphylaxis Verified 02/10/23 17:06 ondansetron Allergy Emesis Verified 02/10/23 16:32 [From Zofran (as hydrochloride)] paroxetine HCl * [From Paxil] Allergy Unknown Verified 02/10/23 16:32 pseudoephedrine Allergy Dizziness Verified 02/10/23 16:32 [From Sudafed] ibuprofen AdvReac Cramps Verified 02/10/23 16:32 - Social History Does the pt smoke?: No Smoking Status: Never smoker Does the pt drink ETOH?: No Does the pt have substance abuse?: No - Immunizations Immunizations are current?: No Immunizations: TDAP >10years/unknown - POLST Patient has POLST: No PD ED PE NORMAL - Vitals Vital signs reviewed: Yes - General General: Alert and oriented X 3, No acute distress - HEENT HEENT: PERRL, Ears normal, Moist mucous membranes, Pharynx benign - Neck Neck: Supple, no meningeal sign, Thyroid normal - Cardiac Cardiac: RRR - Respiratory Respiratory: No respiratory distress, Clear bilaterally - Abdomen Abdomen: Soft, Non tender, Non distended - Derm Derm: Warm and dry - Extremities Extremities: No edema - Neuro Neuro: Alert and oriented X 3, turpentiner 2-12 intact, No motor deficit, No sensory deficit, Normal speech Eye Opening: Spontaneous Motor: Obeys Commands Verbal: Oriented GCS Score: 15 - Psych Psych: Normal mood, Normal affect - Free text exam Free text exam: No temporal artery tenderness Results - Vitals Vitals: Vital Signs - 24 hr 02/10/23 16:32 Temperature 36.5 C Heart Rate 90 Respiratory 16 Rate Blood Pressure 140/90 H O2 Saturation 98 Oxygen O2 Source Room air PD Medical Decision Making - ED course Complexity details: considered differential, d/w patient ED course: Patient currently asymptomatic. Symptoms sound concerning for trigeminal neuralgia. We will trial her on Tegretol and see how she progresses. Normal examination currently. Normal neuro exam. Patient counseled regarding signs and symptoms for which I believe and urgent re-evaluation would be necessary. Patient with good understanding of and agreement to plan and is comfortable going home at this time This document was made in part using voice recognition software. While efforts are made to proofread this document, sound alike and grammatical errors may occur. Departure - Departure Disposition: 01 Home, Self Care Clinical Impression: Trigeminal neuralgia of left side of face Condition: Good Instructions: ED Neuralgia Trigeminal Follow-Up: your,doctor in 1 week [Other] Prescriptions: carBAMazepine [Tegretol Xr] 100 mg PO BID #60 ea Comments: Please follow-up with your doctor for further care. Please return if you worsen. It appears that you may have trigeminal neuralgia. The Tegretol dosing can be increased if your symptoms are not controlled. Please contact your doctor to increase the dosage as needed. Your prescriptions were sent to [facility] in [place]. Discharge Date/Time: 02/10/23 17:39
[2023-02-10] MEDS ORDERED: CHERRY SYRUP 10 ML UDC PO ONE (17:27)
[2023-02-10] MEDS ORDERED: DEXAMETHASONE 10 MG/ML VIAL PO STA (17:27)
--- OUTSIDE RECORDS SUMMARY | 2023-02-10 17:50 | EXTERNAL MEDICAL SUMMARY RPT | Continuity of Care Document ---
:1990 Author Organization [place] Address [address] [place] [address] Phone Care Team Providers Name Role Phone Denis Ferrer Unavailable Unavailable Allergies and Intolerances date description facility type (no date) [facility] (unknown) (no date) latex [facility] (unknown) (no date) morphine [facility] (unknown) (no date) ondansetron [facility] (unknown) (no date) paroxetine [facility] (unknown) (no date) pseudoephedrine [facility] (unknown) (no date) sertraline [facility] (unknown) Encounters No information. Functional Status No information. Immunizations No information. Medications No information. Problems date description facility 2022-12-15 00:00 Ankle sprain and strain [facility] Procedures date description facility 2022-12-15 00:00 X-ray of left ankle, three or more view s [facility] 2022-12-15 00:00 X-ray of right ankle, three or more vie ws [facility] Results/Labs test date author facility value unit interpret ation Result panel 1 (unknown) (no date) (unknown) (unknown) (no value) (units (un known) unknown) (unknown) (no date) (unknown) (unknown) 12/15/22 (units (unkn own) unknown) (unknown) (no date) (unknown) (unknown) [id number] (units (unk nown) Street unknown) (unknown) (no date) (unknown) (unknown) Accession (units (unk nown) Number: unknown) [id number] (unknown) (no date) (unknown) (unknown) Accession (units (unk nown) Number: unknown) [id number] (unknown) (no date) (unknown) (unknown) Age/Sex: 32 / (units (unknown) F Date of unknown) Service: (unknown) (no date) (unknown) (unknown) CLAUDIO Mcdonald (units (unknown) [id number] unknown) (unknown) (no date) (unknown) (unknown) Approved by: (units ( unknown) natalya Brown) Octavio on 12/15/2022 at 20:40 (unknown) (no date) (unknown) (unknown) Approved by: (units ( unknown) natalya Brown) Octavio on 12/15/2022 at 20:42 (unknown) (no date) (unknown) (unknown) Bones: No (units (unk nown) fractures or unknown) dislocations. Ankle mortise is normally aligned. No (unknown) (no date) (unknown) (unknown) COMPARISON[facility], [facility], XR ANKLE RT MIN 3V, 02/28/2020, 23:49. (unknown) (no date) (unknown) (unknown) : (units (unkn own) 1990 unknown) Acct:[id number] (unknown) (no date) (unknown) (unknown) Dictated by: (units ( unknown) natalya Brown) Octavio on 12/15/2022 at 20:39 (unknown) (no date) (unknown) (unknown) Dictated by: (units ( unknown) natalya Brown) Octavio on 12/15/2022 at 20:41 (unknown) (no date) (unknown) (unknown) FINDINGS: (units (unk nown) unknown) (unknown) (no date) (unknown) (unknown) IMPRESSION: (units (u nknown) Intact left unknown) ankle. (unknown) (no date) (unknown) (unknown) IMPRESSION: (units (u nknown) Intact right unknown) ankle. (unknown) (no date) (unknown) (unknown) INDICATIONS: (units ( unknown) fall unknown) (unknown) (no date) (unknown) (unknown) [facility] unknown) (unknown) (no date) (unknown) (unknown) Loc: ED (units (unkn own) unknown) (unknown) (no date) (unknown) (unknown) [id number] (units (un known) unknown) (unknown) (no date) (unknown) (unknown) Ordering (units (unkn own) Provider: unknown) Dom Andrade D.O. (unknown) (no date) (unknown) (unknown) PROCEDURE: XR (units (unknown) ANKLE LT MIN 3V unknown) (unknown) (no date) (unknown) (unknown) PROCEDURE: XR (units (unknown) ANKLE RT MIN 3V unknown) (unknown) (no date) (unknown) (unknown) Patient: (units (unkn own) Vivek Almendarez unknown) Avelina MR#: (unknown) (no date) (unknown) (unknown) Procedure: XR (units (unknown) ankle LT min 3V unknown) (unknown) (no date) (unknown) (unknown) Procedure: XR (units (unknown) ankle RT min 3V unknown) (unknown) (no date) (unknown) (unknown) Signed (units (unkn own) unknown) (unknown) (no date) (unknown) (unknown) Soft tissues: (units (unknown) No tibiotalar unknown) joint effusion. Achilles tendon appears normal. (unknown) (no date) (unknown) (unknown) TECHNIQUE: 3 (units ( unknown) views of the unknown) ankle were acquired. (unknown) (no date) (unknown) (unknown) XRay Report (units (u nknown) unknown) (unknown) (no date) (unknown) (unknown) bony lesions. (units (unknown) Tiny plantar unknown) calcaneal spur (unknown) (no date) (unknown) (unknown) bony lesions. (units (unknown) Tiny plantar unknown) calcaneal spur. (unknown) (no date) (unknown) (unknown) suspicious (units (un known) unknown) Result panel 2 (unknown) (no (unknown) (unknown) (no value) (units (unk nown) date) unknown) (unknown) (no (unknown) (unknown) 'MORPHINE (units (unkn own) date) unknown) (unknown) (no (unknown) (unknown) 'on clouds' (units (un known) date) unknown) (unknown) (no (unknown) (unknown) (Neurontin) (units (un known) date) unknown) (unknown) (no (unknown) (unknown) (Reglan) vomiting (units (unknown) date) #10 tabs unknown) (unknown) (no (unknown) (unknown) [id number] (units (unkn own) date) unknown) (unknown) (no (unknown) (unknown) 12/15/22 20:11 (units (unknown) date) unknown) (unknown) (no (unknown) (unknown) 12/15/22 (units (unkno wn) date) unknown) (unknown) (no (unknown) (unknown) 1 tab PO BID Qty: (units (unknown) date) 0 unknown) (unknown) (no (unknown) (unknown) 1 tab PO Q8H PRN (units (unknown) date) (Reason: pain) unknown) Qty: 20 0RF (unknown) (no (unknown) (unknown) 10 mg PO BEDTIME (units (unknown) date) unknown) (unknown) (no (unknown) (unknown) 10 mg PO Q6H PRN (units (unknown) date) (Reason: nausea unknown) and vomiting) Qty: 10 0RF (unknown) (no (unknown) (unknown) 10 mg PO QDAY (units ( unknown) date) Qty: 30 6RF unknown) (unknown) (no (unknown) (unknown) 10 mg PO TID PRN (units (unknown) date) (Reason: pain) unknown) Qty: 14 0RF (unknown) (no (unknown) (unknown) 10 mg PO TID (units (u nknown) date) unknown) (unknown) (no (unknown) (unknown) 10-30mg PO (units (unk nown) date) bedtime; unknown) (unknown) (no (unknown) (unknown) 100 mg PO BID (units ( unknown) date) Qty: 60 6RF unknown) (unknown) (no (unknown) (unknown) 2 inh INH BID (units ( unknown) date) Qty: 1 12RF unknown) (unknown) (no (unknown) (unknown) 20 mg PO DAILY (units (unknown) date) Qty: 30 0RF unknown) (unknown) (no (unknown) (unknown) 20:07 (units (unkno wn) date) unknown) (unknown) (no (unknown) (unknown) 4 tabs/day (24hr) (units (unknown) date) PO unknown) (unknown) (no (unknown) (unknown) 40 mg PO BEDTIME (units (unknown) date) unknown) (unknown) (no (unknown) (unknown) 500 mg PO QID (units ( unknown) date) Qty: 40 0RF unknown) (unknown) (no (unknown) (unknown) 800 mg PO TID (units ( unknown) date) Qty: 270 3RF unknown) (unknown) (no (unknown) (unknown) 800 mg PO TID (units ( unknown) date) Qty: 30 0RF unknown) (unknown) (no (unknown) (unknown) ALMOST (units (unkno wn) date) unknown) (unknown) (no (unknown) (unknown) Age/Sex: 32 / F (units (unknown) date) unknown) (unknown) (no (unknown) (unknown) Allergies (units (unkn own) date) unknown) (unknown) (no (unknown) (unknown) Allergy/AdvReac (units (unknown) date) Type Severity unknown) Reaction Status Date / Time (unknown) (no (unknown) (unknown) BAD RASH' (units (unkn own) date) unknown) (unknown) (no (unknown) (unknown) Blood Pressure (units (unknown) date) 117/77 12/15/22 unknown) 20:07 (unknown) (no (unknown) (unknown) Blood Pressure (units (unknown) date) 117/77 unknown) (unknown) (no (unknown) (unknown) Chief Complaint: (units (unknown) date) Extremity Injury, unknown) Lower (unknown) (no (unknown) (unknown) Controlled type 2 (units (unknown) date) diabetes mellitus unknown) without complication, without long-term (unknown) (no (unknown) (unknown) Course (units (unkno wn) date) unknown) (unknown) (no (unknown) (unknown) : 1990 (units (unknown) date) Acct:[id number] unknown) (unknown) (no (unknown) (unknown) Date of Service: (units (unknown) date) 12/15/22 unknown) (unknown) (no (unknown) (unknown) Departure (units (unkn own) date) unknown) (unknown) (no (unknown) (unknown) Discharge Plan (units (unknown) date) unknown) (unknown) (no (unknown) (unknown) Dose Instruction: (units (unknown) date) unknown) (unknown) (no (unknown) (unknown) ED Orders (units (unkn own) date) unknown) (unknown) (no (unknown) (unknown) ER Physician: (units ( unknown) date) Dom Andrade D.O. unknown) (unknown) (no (unknown) (unknown) EVERYTHING (units (unk nown) date) unknown) (unknown) (no (unknown) (unknown) Emergency Report (units (unknown) date) unknown) (unknown) (no (unknown) (unknown) Exam (units (unkno wn) date) unknown) (unknown) (no (unknown) (unknown) Family History (units (unknown) date) (Reviewed 11/01/21 unknown) @ 19:30 by Rachel Scott DO) (unknown) (no (unknown) (unknown) General (units (unkno wn) date) unknown) (unknown) (no (unknown) (unknown) HPI - Extremity (units (unknown) date) Injury (Lower) unknown) (unknown) (no (unknown) (unknown) Home Medications (units (unknown) date) unknown) (unknown) (no (unknown) (unknown) Denis Ferrer, (units (unknown) date) , [place] [Primary unknown) Care Provider] (unknown) (no (unknown) (unknown) Hypothyroidism, (units (unknown) date) unspecified type unknown) (unknown) (no (unknown) (unknown) Initial Vital (units ( unknown) date) Signs unknown) (unknown) (no (unknown) (unknown) Initial Vital (units ( unknown) date) Signs: unknown) (unknown) (no (unknown) (unknown) [facility] (units (unknown) date) [address] [place] [address] Street unknown) [place] [address] (unknown) (no (unknown) (unknown) KILLED ME' (units (unk nown) date) unknown) (unknown) (no (unknown) (unknown) Medication (units (unk nown) date) Instructions unknown) Recorded Confirmed (unknown) (no (unknown) (unknown) Medication (units (unk nown) date) Instructions unknown) Recorded (unknown) (no (unknown) (unknown) Mode of arrival: (units (unknown) date) Wheelchair unknown) (unknown) (no (unknown) (unknown) Mother (units (unkno wn) date) 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 (units (unknown) date) CARE W/NEW PCP unknown) PRIOR TO ANY FUTURE FILLS. PLEASE CALL TO (unknown) (no (unknown) (unknown) Patient History (units (unknown) date) unknown) (unknown) (no (unknown) (unknown) Patient: (units (unkno wn) date) Vivek Almendarez K unknown) MR#: M (unknown) (no (unknown) (unknown) Prescriptions: (units (unknown) date) unknown) (unknown) (no (unknown) (unknown) Previous Rx's (units ( unknown) date) unknown) (unknown) (no (unknown) (unknown) Pulse Oximetry (units (unknown) date) 100 12/15/22 20:07 unknown) (unknown) (no (unknown) (unknown) Pulse Oximetry (units (unknown) date) 100 unknown) (unknown) (no (unknown) (unknown) Pulse Rate 107 H (units (unknown) date) 12/15/22 20:07 unknown) (unknown) (no (unknown) (unknown) Pulse Rate 107 H (units (unknown) date) unknown) (unknown) (no (unknown) (unknown) Referrals: (units (unk nown) date) unknown) (unknown) (no (unknown) (unknown) Related Data (units (u nknown) date) unknown) (unknown) (no (unknown) (unknown) Respiratory Rate (units (unknown) date) 16 12/15/22 20:07 unknown) (unknown) (no (unknown) (unknown) Respiratory Rate (units (unknown) date) 16 unknown) (unknown) (no (unknown) (unknown) Rx Instructions: (units (unknown) date) unknown) (unknown) (no (unknown) (unknown) SCHED. APPT (units (un known) date) 04/08/20 unknown) (unknown) (no (unknown) (unknown) See Rx (units (unkno wn) date) Instructions PO unknown) .COMPLEX Qty: 9 6RF (unknown) (no (unknown) (unknown) See Rx (units (unkno wn) date) Instructions PO unknown) BEDTIME Qty: 90 3RF (unknown) (no (unknown) (unknown) Signed By: (units (unk nown) date) unknown) (unknown) (no (unknown) (unknown) Smoking Status: (units (unknown) date) Never smoker unknown) (unknown) (no (unknown) (unknown) Social History (units (unknown) date) (Reviewed 11/01/21 unknown) @ 19:30 by Rachel Scott DO) (unknown) (no (unknown) (unknown) Source: patient (units (unknown) date) and family unknown) (unknown) (no (unknown) (unknown) Stated Complaint: (units (unknown) date) Fell/pain to both unknown) legs (unknown) (no (unknown) (unknown) Status post (units (un known) date) appendectomy unknown) (unknown) (no (unknown) (unknown) Substance Use (units ( unknown) date) Type: marijuana unknown) (unknown) (no (unknown) (unknown) Surgical History (units (unknown) date) (Reviewed 11/01/21 unknown) @ 19:30 by Rachel Scott DO) (unknown) (no (unknown) (unknown) Temperature 97.9 (units (unknown) date) F 12/15/22 20:07 unknown) (unknown) (no (unknown) (unknown) Temperature 97.9 (units (unknown) date) F unknown) (unknown) (no (unknown) (unknown) Time Seen by (units (u nknown) date) Provider: 12/15/22 unknown) 20:49 (unknown) (no (unknown) (unknown) VOMITING (units (unkno wn) date) unknown) (unknown) (no (unknown) (unknown) Vital Signs - 8 (units (unknown) date) hr unknown) (unknown) (no (unknown) (unknown) Vital Signs (units (un known) date) unknown) (unknown) (no (unknown) (unknown) Vital signs: (units (u nknown) date) unknown) (unknown) (no (unknown) (unknown) WORSE' (units (unkno wn) date) unknown) (unknown) (no (unknown) (unknown) XR ankle LT min (units (unknown) date) 3V Stat unknown) (unknown) (no (unknown) (unknown) XR ankle RT min (units (unknown) date) 3V Stat unknown) (unknown) (no (unknown) (unknown) [From SUDAFED] (units (unknown) date) unknown) (unknown) (no (unknown) (unknown) [ (units (unkn own) date) VITAMIN] 1 tab PO unknown) BID ##0 10/06/17 04/23/20 (unknown) (no (unknown) (unknown) [ (units (unkn own) date) VITAMIN] unknown) (unknown) (no (unknown) (unknown) alcohol intake (units (unknown) date) frequency: unknown) holidays/special occasions only (unknown) (no (unknown) (unknown) alcohol intake: (units (unknown) date) never unknown) (unknown) (no (unknown) (unknown) amitriptyline 10 (units (unknown) date) mg tablet See Rx unknown) Instructions PO BEDTIME #90 08/15/19 (unknown) (no (unknown) (unknown) amitriptyline 10 (units (unknown) date) mg tablet unknown) (unknown) (no (unknown) (unknown) cephalexin 500 mg (units (unknown) date) capsule 500 mg PO unknown) QID #40 caps 04/10/20 (unknown) (no (unknown) (unknown) cephalexin 500 mg (units (unknown) date) capsule unknown) (unknown) (no (unknown) (unknown) current use of (units (unknown) date) insulin unknown) (unknown) (no (unknown) (unknown) cyclobenzaprine (units (unknown) date) 10 mg tablet 10 mg unknown) PO TID 03/27/19 04/23/20 (unknown) (no (unknown) (unknown) cyclobenzaprine (units (unknown) date) 10 mg tablet unknown) (unknown) (no (unknown) (unknown) duloxetine 20 mg (units (unknown) date) capsule,delayed 40 unknown) mg PO BEDTIME 03/27/19 04/23/20 (unknown) (no (unknown) (unknown) duloxetine 20 mg (units (unknown) date) capsule,delayed unknown) release(DR/EC) (unknown) (no (unknown) (unknown) gabapentin 800 mg (units (unknown) date) tablet 800 mg PO unknown) TID #270 tabs 05/20/21 (unknown) (no (unknown) (unknown) gabapentin (units (unk nown) date) [Neurontin] 800 mg unknown) tablet (unknown) (no (unknown) (unknown) hydrocodone 5 (units ( unknown) date) mg-acetaminophen unknown) 325 1 tab PO Q8H PRN pain #20 tabs 04/23/20 (unknown) (no (unknown) (unknown) hydrocodone-aceta (units (unknown) date) minophen 5-325 mg unknown) tablet (unknown) (no (unknown) (unknown) ibuprofen 800 mg (units (unknown) date) tablet 800 mg PO unknown) TID #30 tabs 04/23/20 (unknown) (no (unknown) (unknown) ibuprofen 800 mg (units (unknown) date) tablet unknown) (unknown) (no (unknown) (unknown) inhaler (Dulera) (units (unknown) date) unknown) (unknown) (no (unknown) (unknown) ketorolac 10 mg (units (unknown) date) tablet 10 mg PO unknown) TID PRN pain #14 tabs 08/18/20 (unknown) (no (unknown) (unknown) ketorolac 10 mg (units (unknown) date) tablet unknown) (unknown) (no (unknown) (unknown) latex Allergy (units ( unknown) date) Intermediate Rash unknown) Verified 12/15/22 20:12 (unknown) (no (unknown) (unknown) loratadine 10 mg (units (unknown) date) tablet 10 mg PO unknown) QDAY #30 tabs 11/11/20 (unknown) (no (unknown) (unknown) loratadine 10 mg (units (unknown) date) tablet unknown) (unknown) (no (unknown) (unknown) mcg-5 (units (unkno wn) date) mcg/actuation unknown) aerosol (unknown) (no (unknown) (unknown) melatonin 10 mg (units (unknown) date) tablet 10 mg PO unknown) BEDTIME 03/27/19 04/23/20 (unknown) (no (unknown) (unknown) melatonin 10 mg (units (unknown) date) tablet unknown) (unknown) (no (unknown) (unknown) metoclopramide (units (unknown) date) HCl 10 mg tablet unknown) 10 mg PO Q6H PRN nausea and 07/11/21 (unknown) (no (unknown) (unknown) metoclopramide (units (unknown) date) HCl [Reglan] 10 mg unknown) tablet (unknown) (no (unknown) (unknown) mg tablet (units (unkn own) date) unknown) (unknown) (no (unknown) (unknown) mometasone-formot (units (unknown) date) jody HFA 100 2 inh unknown) INH BID #1 inh 01/16/18 (unknown) (no (unknown) (unknown) mometasone-formot (units (unknown) date) jody [Dulera] 100 unknown) MCG/5 MCG HFA aerosol inhaler (unknown) (no (unknown) (unknown) montelukast 10 mg (units (unknown) date) tablet 10 mg PO unknown) QDAY #30 tabs 10/03/19 (unknown) (no (unknown) (unknown) montelukast 10 mg (units (unknown) date) tablet unknown) (unknown) (no (unknown) (unknown) morphine (units (unkno wn) date) [MORPHINE] Allergy unknown) Severe N+V Verified 12/15/22 20:11 (unknown) (no (unknown) (unknown) omeprazole 20 mg (units (unknown) date) capsule,delayed 20 unknown) mg PO DAILY #30 caps 04/08/20 (unknown) (no (unknown) (unknown) omeprazole 20 mg (units (unknown) date) capsule,delayed unknown) release(DR/EC) (unknown) (no (unknown) (unknown) ondansetron (units (un known) date) [ONDANSETRON] unknown) AdvReac Intermediate 'MADE MY Verified 12/15/22 20:11 (unknown) (no (unknown) (unknown) paroxetine [From (units (unknown) date) PAXIL] Allergy unknown) Intermediate SAW 3 OF Verified 12/15/22 20:11 (unknown) (no (unknown) (unknown) pseudoephedrine (units (unknown) date) AdvReac Severe unknown) MIGRAINES Verified 12/15/22 20:11 (unknown) (no (unknown) (unknown) release (units (unkno wn) date) unknown) (unknown) (no (unknown) (unknown) second hand (units (un known) date) exposure: No unknown) (unknown) (no (unknown) (unknown) sertraline (units (unk nown) date) [SERTRALINE] unknown) AdvReac Mild felt like Verified 12/15/22 20:11 (unknown) (no (unknown) (unknown) she was (units (unkno wn) date) unknown) (unknown) (no (unknown) (unknown) substance use (units ( unknown) date) type: does not use unknown) (unknown) (no (unknown) (unknown) sumatriptan (units (un known) date) succinate 25 mg unknown) tablet See Rx Instructions PO .COMPLEX #9 10/03/19 (unknown) (no (unknown) (unknown) sumatriptan (units (un known) date) succinate 25 mg unknown) tablet (unknown) (no (unknown) (unknown) tabs (units (unkno wn) date) unknown) (unknown) (no (unknown) (unknown) take 1 tab at (units ( unknown) date) onset of headache; unknown) if no relief may repeat 1 tab in 2hr; max = (unknown) (no (unknown) (unknown) topiramate 100 mg (units (unknown) date) tablet (Topamax) unknown) 100 mg PO BID #60 tabs 03/22/19 (unknown) (no (unknown) (unknown) topiramate (units (unk nown) date) [Topamax] 100 mg unknown) tablet (unknown) (no (unknown) (unknown) vinyl gloves (units (u nknown) date) Allergy Severe unknown) 'REALLY Uncoded 06/27/21 17:12 Result panel 3 (unknown) (no (unknown) (unknown) (no value) (units (unk nown) date) unknown) (unknown) (no (unknown) (unknown) 'MORPHINE (units (unkn own) date) unknown) (unknown) (no (unknown) (unknown) 'on clouds' (units (un known) date) unknown) (unknown) (no (unknown) (unknown) (Neurontin) (units (un known) date) unknown) (unknown) (no (unknown) (unknown) (Reglan) vomiting (units (unknown) date) #10 tabs unknown) (unknown) (no (unknown) (unknown) *If you do not (units (unknown) date) have a primary unknown) care provider please contact the [facility] (unknown) (no (unknown) (unknown) *Please continue (units (unknown) date) to take your unknown) regular medications as directed. (unknown) (no (unknown) (unknown) *Please follow up (units (unknown) date) with your primary unknown) care provider in 2-3 days, call for an (unknown) (no (unknown) (unknown) *Return to (units (unk nown) date) Emergency unknown) Department if you should have any new, worsening or (unknown) (no (unknown) (unknown) *What to do: (units (u nknown) date) unknown) (unknown) (no (unknown) (unknown) *You have been (units (unknown) date) diagnosed with [R unknown) ankle sprain, L ankle contusion ] (unknown) (no (unknown) (unknown) [id number] (units (unkn own) date) unknown) (unknown) (no (unknown) (unknown) 12/15/22 20:11 (units (unknown) date) unknown) (unknown) (no (unknown) (unknown) 12/15/22 (units (unkno wn) date) unknown) (unknown) (no (unknown) (unknown) 1 tab PO BID Qty: (units (unknown) date) 0 unknown) (unknown) (no (unknown) (unknown) 1 tab PO Q8H PRN (units (unknown) date) (Reason: pain) unknown) Qty: 20 0RF (unknown) (no (unknown) (unknown) 10 mg PO BEDTIME (units (unknown) date) unknown) (unknown) (no (unknown) (unknown) 10 mg PO Q6H PRN (units (unknown) date) (Reason: nausea unknown) and vomiting) Qty: 10 0RF (unknown) (no (unknown) (unknown) 10 mg PO QDAY (units ( unknown) date) Qty: 30 6RF unknown) (unknown) (no (unknown) (unknown) 10 mg PO TID PRN (units (unknown) date) (Reason: pain) unknown) Qty: 14 0RF (unknown) (no (unknown) (unknown) 10 mg PO TID (units (u nknown) date) unknown) (unknown) (no (unknown) (unknown) 10-30mg PO (units (unk nown) date) bedtime; unknown) (unknown) (no (unknown) (unknown) 100 mg PO BID (units ( unknown) date) Qty: 60 6RF unknown) (unknown) (no (unknown) (unknown) 2 inh INH BID (units ( unknown) date) Qty: 1 12RF unknown) (unknown) (no (unknown) (unknown) 20 mg PO DAILY (units (unknown) date) Qty: 30 0RF unknown) (unknown) (no (unknown) (unknown) 20:07 (units (unkno wn) date) unknown) (unknown) (no (unknown) (unknown) 4 tabs/day (24hr) (units (unknown) date) PO unknown) (unknown) (no (unknown) (unknown) 40 mg PO BEDTIME (units (unknown) date) unknown) (unknown) (no (unknown) (unknown) 500 mg PO QID (units ( unknown) date) Qty: 40 0RF unknown) (unknown) (no (unknown) (unknown) 800 mg PO TID (units ( unknown) date) Qty: 270 3RF unknown) (unknown) (no (unknown) (unknown) 800 mg PO TID (units ( unknown) date) Qty: 30 0RF unknown) (unknown) (no (unknown) (unknown) ALMOST (units (unkno wn) date) unknown) (unknown) (no (unknown) (unknown) Activity (units (unkno wn) date) Restrictions/Addit unknown) ional Instructions: (unknown) (no (unknown) (unknown) Age/Sex: 32 / F (units (unknown) date) unknown) (unknown) (no (unknown) (unknown) Allergies (units (unkn own) date) unknown) (unknown) (no (unknown) (unknown) Allergy/AdvReac (units (unknown) date) Type Severity unknown) Reaction Status Date / Time (unknown) (no (unknown) (unknown) Ankle sprain and (units (unknown) date) strain unknown) (unknown) (no (unknown) (unknown) BAD RASH' (units (unkn own) date) unknown) (unknown) (no (unknown) (unknown) Blood Pressure (units (unknown) date) 117/77 12/15/22 unknown) 20:07 (unknown) (no (unknown) (unknown) Blood Pressure (units (unknown) date) 117/77 unknown) (unknown) (no (unknown) (unknown) Chief Complaint: (units (unknown) date) Extremity Injury, unknown) Lower (unknown) (no (unknown) (unknown) Clinical (units (unkno wn) date) Impression: unknown) (unknown) (no (unknown) (unknown) Controlled type 2 (units (unknown) date) diabetes mellitus unknown) without complication, without long-term (unknown) (no (unknown) (unknown) Course (units (unkno wn) date) unknown) (unknown) (no (unknown) (unknown) : 1990 (units (unknown) date) Acct:[id number] unknown) (unknown) (no (unknown) (unknown) Date of Service: (units (unknown) date) 12/15/22 unknown) (unknown) (no (unknown) (unknown) Departure (units (unkn own) date) unknown) (unknown) (no (unknown) (unknown) Discharge Plan (units (unknown) date) unknown) (unknown) (no (unknown) (unknown) Dose Instruction: (units (unknown) date) unknown) (unknown) (no (unknown) (unknown) ED Orders (units (unkn own) date) unknown) (unknown) (no (unknown) (unknown) ER Physician: (units ( unknown) date) Dom Andrade D.O. unknown) (unknown) (no (unknown) (unknown) EVERYTHING (units (unk nown) date) unknown) (unknown) (no (unknown) (unknown) Emergency Report (units (unknown) date) unknown) (unknown) (no (unknown) (unknown) Exam (units (unkno wn) date) unknown) (unknown) (no (unknown) (unknown) Family History (units (unknown) date) (Reviewed 11/01/21 unknown) @ 19:30 by Rachel Scott DO) (unknown) (no (unknown) (unknown) General (units (unkno wn) date) unknown) (unknown) (no (unknown) (unknown) HPI - Extremity (units (unknown) date) Injury (Lower) unknown) (unknown) (no (unknown) (unknown) Home Medications (units (unknown) date) unknown) (unknown) (no (unknown) (unknown) Denis Ferrer, (units (unknown) date) , [place] [Primary unknown) Care Provider] (unknown) (no (unknown) (unknown) Hypothyroidism, (units (unknown) date) unspecified type unknown) (unknown) (no (unknown) (unknown) Initial Vital (units ( unknown) date) Signs unknown) (unknown) (no (unknown) (unknown) Initial Vital (units ( unknown) date) Signs: unknown) (unknown) (no (unknown) (unknown) Instructions: (units ( unknown) date) Ankle Sprain unknown) (unknown) (no (unknown) (unknown) [facility] (units (unknown) date) [address] [place] [address] unknown) [place] [address] (unknown) (no (unknown) (unknown) KILLED ME' (units (unk nown) date) unknown) (unknown) (no (unknown) (unknown) Medication (units (unk nown) date) Instructions unknown) Recorded Confirmed (unknown) (no (unknown) (unknown) Medication (units (unk nown) date) Instructions unknown) Recorded (unknown) (no (unknown) (unknown) Mode of arrival: (units (unknown) date) Wheelchair unknown) (unknown) (no (unknown) (unknown) Mother (units (unkno wn) date) 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 (units (unknown) date) CARE W/NEW PCP unknown) PRIOR TO ANY FUTURE FILLS. PLEASE CALL TO (unknown) (no (unknown) (unknown) Patient (units (unkno wn) date) Disposition: Home unknown) (unknown) (no (unknown) (unknown) Patient History (units (unknown) date) unknown) (unknown) (no (unknown) (unknown) Patient: (units (unkno wn) date) Vivek Almendarez unknown) MR#: M (unknown) (no (unknown) (unknown) Prescriptions: (units (unknown) date) unknown) (unknown) (no (unknown) (unknown) Previous Rx's (units ( unknown) date) unknown) (unknown) (no (unknown) (unknown) Pulse Oximetry (units (unknown) date) 100 12/15/22 20:07 unknown) (unknown) (no (unknown) (unknown) Pulse Oximetry (units (unknown) date) 100 unknown) (unknown) (no (unknown) (unknown) Pulse Rate 107 H (units (unknown) date) 12/15/22 20:07 unknown) (unknown) (no (unknown) (unknown) Pulse Rate 107 H (units (unknown) date) unknown) (unknown) (no (unknown) (unknown) Referrals: (units (unk nown) date) unknown) (unknown) (no (unknown) (unknown) Related Data (units (u nknown) date) unknown) (unknown) (no (unknown) (unknown) Resource line at (units (unknown) date) [phone]. They unknown) will ask some questions about your medical (unknown) (no (unknown) (unknown) Respiratory Rate (units (unknown) date) 16 12/15/22 20:07 unknown) (unknown) (no (unknown) (unknown) Respiratory Rate (units (unknown) date) 16 unknown) (unknown) (no (unknown) (unknown) Rx Instructions: (units (unknown) date) unknown) (unknown) (no (unknown) (unknown) SCHED. APPT (units (un known) date) 04/08/20 unknown) (unknown) (no (unknown) (unknown) See Rx (units (unkno wn) date) Instructions PO unknown) .COMPLEX Qty: 9 6RF (unknown) (no (unknown) (unknown) See Rx (units (unkno wn) date) Instructions PO unknown) BEDTIME Qty: 90 3RF (unknown) (no (unknown) (unknown) Signed By: (units (unk nown) date) unknown) (unknown) (no (unknown) (unknown) Smoking Status: (units (unknown) date) Never smoker unknown) (unknown) (no (unknown) (unknown) Social History (units (unknown) date) (Reviewed 11/01/21 unknown) @ 19:30 by Rachel Scott DO) (unknown) (no (unknown) (unknown) Source: patient (units (unknown) date) and family unknown) (unknown) (no (unknown) (unknown) Stand Alone (units (un known) date) Forms: Patient unknown) Portal/API (unknown) (no (unknown) (unknown) Stated Complaint: (units (unknown) date) Fell/pain to both unknown) legs (unknown) (no (unknown) (unknown) Status post (units (un known) date) appendectomy unknown) (unknown) (no (unknown) (unknown) Substance Use (units ( unknown) date) Type: marijuana unknown) (unknown) (no (unknown) (unknown) Surgical History (units (unknown) date) (Reviewed 11/01/21 unknown) @ 19:30 by Rachel Scott DO) (unknown) (no (unknown) (unknown) Temperature 97.9 (units (unknown) date) F 12/15/22 20:07 unknown) (unknown) (no (unknown) (unknown) Temperature 97.9 (units (unknown) date) F unknown) (unknown) (no (unknown) (unknown) Time Seen by (units (u nknown) date) Provider: 12/15/22 unknown) 20:49 (unknown) (no (unknown) (unknown) VOMITING (units (unkno wn) date) unknown) (unknown) (no (unknown) (unknown) Vital Signs - 8 (units (unknown) date) hr unknown) (unknown) (no (unknown) (unknown) Vital Signs (units (un known) date) unknown) (unknown) (no (unknown) (unknown) Vital signs: (units (u nknown) date) unknown) (unknown) (no (unknown) (unknown) WORSE' (units (unkno wn) date) unknown) (unknown) (no (unknown) (unknown) XR ankle LT min (units (unknown) date) 3V Stat unknown) (unknown) (no (unknown) (unknown) XR ankle RT min (units (unknown) date) 3V Stat unknown) (unknown) (no (unknown) (unknown) [ ] New (units (unkno wn) date) medication unknown) prescriptions sent to your pharmacy: [ ] (unknown) (no (unknown) (unknown) [ ] New (units (unkno wn) date) medication written unknown) as a paper prescription (unknown) (no (unknown) (unknown) [ x] No new (units (un known) date) medications given unknown) (unknown) (no (unknown) (unknown) [From SUDAFED] (units (unknown) date) unknown) (unknown) (no (unknown) (unknown) [ (units (unkn own) date) VITAMIN] 1 tab PO unknown) BID ##0 10/06/17 04/23/20 (unknown) (no (unknown) (unknown) [ (units (unkn own) date) VITAMIN] unknown) (unknown) (no (unknown) (unknown) alcohol intake (units (unknown) date) frequency: unknown) holidays/special occasions only (unknown) (no (unknown) (unknown) alcohol intake: (units (unknown) date) never unknown) (unknown) (no (unknown) (unknown) amitriptyline 10 (units (unknown) date) mg tablet See Rx unknown) Instructions PO BEDTIME #90 08/15/19 (unknown) (no (unknown) (unknown) amitriptyline 10 (units (unknown) date) mg tablet unknown) (unknown) (no (unknown) (unknown) appointment. Let (units (unknown) date) them know you were unknown) seen in the Emergency Department and that we (unknown) (no (unknown) (unknown) ask that you be (units (unknown) date) seen in follow up. unknown) We will electronically transmit a record of (unknown) (no (unknown) (unknown) cephalexin 500 mg (units (unknown) date) capsule 500 mg PO unknown) QID #40 caps 04/10/20 (unknown) (no (unknown) (unknown) cephalexin 500 mg (units (unknown) date) capsule unknown) (unknown) (no (unknown) (unknown) concerning (units (unk nown) date) symptoms, such as unknown) [fever greater than 101 F, shaking chills, (unknown) (no (unknown) (unknown) current use of (units (unknown) date) insulin unknown) (unknown) (no (unknown) (unknown) cyclobenzaprine (units (unknown) date) 10 mg tablet 10 mg unknown) PO TID 03/27/19 04/23/20 (unknown) (no (unknown) (unknown) cyclobenzaprine (units (unknown) date) 10 mg tablet unknown) (unknown) (no (unknown) (unknown) duloxetine 20 mg (units (unknown) date) capsule,delayed 40 unknown) mg PO BEDTIME 03/27/19 04/23/20 (unknown) (no (unknown) (unknown) duloxetine 20 mg (units (unknown) date) capsule,delayed unknown) release(DR/EC) (unknown) (no (unknown) (unknown) gabapentin 800 mg (units (unknown) date) tablet 800 mg PO unknown) TID #270 tabs 05/20/21 (unknown) (no (unknown) (unknown) gabapentin (units (unk nown) date) [Neurontin] 800 mg unknown) tablet (unknown) (no (unknown) (unknown) history and help (units (unknown) date) get you set up unknown) with a doctor in the community. (unknown) (no (unknown) (unknown) hydrocodone 5 (units ( unknown) date) mg-acetaminophen unknown) 325 1 tab PO Q8H PRN pain #20 tabs 04/23/20 (unknown) (no (unknown) (unknown) hydrocodone-aceta (units (unknown) date) minophen 5-325 mg unknown) tablet (unknown) (no (unknown) (unknown) ibuprofen 800 mg (units (unknown) date) tablet 800 mg PO unknown) TID #30 tabs 04/23/20 (unknown) (no (unknown) (unknown) ibuprofen 800 mg (units (unknown) date) tablet unknown) (unknown) (no (unknown) (unknown) inhaler (Dulera) (units (unknown) date) unknown) (unknown) (no (unknown) (unknown) ketorolac 10 mg (units (unknown) date) tablet 10 mg PO unknown) TID PRN pain #14 tabs 08/18/20 (unknown) (no (unknown) (unknown) ketorolac 10 mg (units (unknown) date) tablet unknown) (unknown) (no (unknown) (unknown) latex Allergy (units ( unknown) date) Intermediate Rash unknown) Verified 12/15/22 20:12 (unknown) (no (unknown) (unknown) loratadine 10 mg (units (unknown) date) tablet 10 mg PO unknown) QDAY #30 tabs 11/11/20 (unknown) (no (unknown) (unknown) loratadine 10 mg (units (unknown) date) tablet unknown) (unknown) (no (unknown) (unknown) mcg-5 (units (unkno wn) date) mcg/actuation unknown) aerosol (unknown) (no (unknown) (unknown) melatonin 10 mg (units (unknown) date) tablet 10 mg PO unknown) BEDTIME 03/27/19 04/23/20 (unknown) (no (unknown) (unknown) melatonin 10 mg (units (unknown) date) tablet unknown) (unknown) (no (unknown) (unknown) metoclopramide (units (unknown) date) HCl 10 mg tablet unknown) 10 mg PO Q6H PRN nausea and 07/11/21 (unknown) (no (unknown) (unknown) metoclopramide (units (unknown) date) HCl [Reglan] 10 mg unknown) tablet (unknown) (no (unknown) (unknown) mg tablet (units (unkn own) date) unknown) (unknown) (no (unknown) (unknown) mometasone-formot (units (unknown) date) jody HFA 100 2 inh unknown) INH BID #1 inh 01/16/18 (unknown) (no (unknown) (unknown) mometasone-formot (units (unknown) date) jody [Dulera] 100 unknown) MCG/5 MCG HFA aerosol inhaler (unknown) (no (unknown) (unknown) montelukast 10 mg (units (unknown) date) tablet 10 mg PO unknown) QDAY #30 tabs 10/03/19 (unknown) (no (unknown) (unknown) montelukast 10 mg (units (unknown) date) tablet unknown) (unknown) (no (unknown) (unknown) morphine (units (unkno wn) date) [MORPHINE] Allergy unknown) Severe N+V Verified 12/15/22 20:11 (unknown) (no (unknown) (unknown) omeprazole 20 mg (units (unknown) date) capsule,delayed 20 unknown) mg PO DAILY #30 caps 04/08/20 (unknown) (no (unknown) (unknown) omeprazole 20 mg (units (unknown) date) capsule,delayed unknown) release(DR/EC) (unknown) (no (unknown) (unknown) ondansetron (units (un known) date) [ONDANSETRON] unknown) AdvReac Intermediate 'MADE MY Verified 12/15/22 20:11 (unknown) (no (unknown) (unknown) paroxetine [From (units (unknown) date) PAXIL] Allergy unknown) Intermediate SAW 3 OF Verified 12/15/22 20:11 (unknown) (no (unknown) (unknown) pseudoephedrine (units (unknown) date) AdvReac Severe unknown) MIGRAINES Verified 12/15/22 20:11 (unknown) (no (unknown) (unknown) release (units (unkno wn) date) unknown) (unknown) (no (unknown) (unknown) second hand (units (un known) date) exposure: No unknown) (unknown) (no (unknown) (unknown) sertraline (units (unk nown) date) [SERTRALINE] unknown) AdvReac Mild felt like Verified 12/15/22 20:11 (unknown) (no (unknown) (unknown) she was (units (unkno wn) date) unknown) (unknown) (no (unknown) (unknown) substance use (units ( unknown) date) type: does not use unknown) (unknown) (no (unknown) (unknown) sumatriptan (units (un known) date) succinate 25 mg unknown) tablet See Rx Instructions PO .COMPLEX #9 10/03/19 (unknown) (no (unknown) (unknown) sumatriptan (units (un known) date) succinate 25 mg unknown) tablet (unknown) (no (unknown) (unknown) tabs (units (unkno wn) date) unknown) (unknown) (no (unknown) (unknown) take 1 tab at (units ( unknown) date) onset of headache; unknown) if no relief may repeat 1 tab in 2hr; max = (unknown) (no (unknown) (unknown) today's note if (units (unknown) date) your PCP is in our unknown) system (unknown) (no (unknown) (unknown) topiramate 100 mg (units (unknown) date) tablet (Topamax) unknown) 100 mg PO BID #60 tabs 03/22/19 (unknown) (no (unknown) (unknown) topiramate (units (unk nown) date) [Topamax] 100 mg unknown) tablet (unknown) (no (unknown) (unknown) vinyl gloves (units (u nknown) date) Allergy Severe unknown) 'REALLY Uncoded 06/27/21 17:12 (unknown) (no (unknown) (unknown) worsening pain, (units (unknown) date) persistent unknown) vomiting or other bothersome symptoms] Result panel 4 (unknown) (no (unknown) (unknown) (no value) (units (unk nown) date) unknown) (unknown) (no (unknown) (unknown) <Electronically (units (unknown) date) signed by Dom hoang) Oleg AndradeOChristiano> (unknown) (no (unknown) (unknown) 'MORPHINE (units (unkn own) date) unknown) (unknown) (no (unknown) (unknown) 'on clouds' (units (un known) date) unknown) (unknown) (no (unknown) (unknown) (Neurontin) (units (un known) date) unknown) (unknown) (no (unknown) (unknown) (Reglan) vomiting (units (unknown) date) #10 tabs unknown) (unknown) (no (unknown) (unknown) *If you do not (units (unknown) date) have a primary unknown) care provider please contact the [facility] (unknown) (no (unknown) (unknown) *Please continue (units (unknown) date) to take your unknown) regular medications as directed. (unknown) (no (unknown) (unknown) *Please follow up (units (unknown) date) with your primary unknown) care provider in 2-3 days, call for an (unknown) (no (unknown) (unknown) *Return to (units (unk nown) date) Emergency unknown) Department if you should have any new, worsening or (unknown) (no (unknown) (unknown) *What to do: (units (u nknown) date) unknown) (unknown) (no (unknown) (unknown) *You have been (units (unknown) date) diagnosed with [R unknown) ankle sprain, L ankle contusion ] (unknown) (no (unknown) (unknown) [id number] (units (unkn own) date) unknown) (unknown) (no (unknown) (unknown) 12/15/22 20:11 (units (unknown) date) unknown) (unknown) (no (unknown) (unknown) 12/15/22 (units (unkno wn) date) unknown) (unknown) (no (unknown) (unknown) 12/20/22 0823 (units ( unknown) date) unknown) (unknown) (no (unknown) (unknown) 1 tab PO BID Qty: (units (unknown) date) 0 unknown) (unknown) (no (unknown) (unknown) 1 tab PO Q8H PRN (units (unknown) date) (Reason: pain) unknown) Qty: 20 0RF (unknown) (no (unknown) (unknown) 10 mg PO BEDTIME (units (unknown) date) unknown) (unknown) (no (unknown) (unknown) 10 mg PO Q6H PRN (units (unknown) date) (Reason: nausea unknown) and vomiting) Qty: 10 0RF (unknown) (no (unknown) (unknown) 10 mg PO QDAY (units ( unknown) date) Qty: 30 6RF unknown) (unknown) (no (unknown) (unknown) 10 mg PO TID PRN (units (unknown) date) (Reason: pain) unknown) Qty: 14 0RF (unknown) (no (unknown) (unknown) 10 mg PO TID (units (u nknown) date) unknown) (unknown) (no (unknown) (unknown) 10-30mg PO (units (unk nown) date) bedtime; unknown) (unknown) (no (unknown) (unknown) 100 mg PO BID (units ( unknown) date) Qty: 60 6RF unknown) (unknown) (no (unknown) (unknown) 12 point review (units (unknown) date) of systems is unknown) negative except for those stated above (unknown) (no (unknown) (unknown) 2 inh INH BID (units ( unknown) date) Qty: 1 12RF unknown) (unknown) (no (unknown) (unknown) 20 mg PO DAILY (units (unknown) date) Qty: 30 0RF unknown) (unknown) (no (unknown) (unknown) 20:07 (units (unkno wn) date) unknown) (unknown) (no (unknown) (unknown) 32-year-old female (units (unknown) date) nonsmoker with unknown) non-contributory medical history presents with (unknown) (no (unknown) (unknown) 4 tabs/day (24hr) (units (unknown) date) PO unknown) (unknown) (no (unknown) (unknown) 40 mg PO BEDTIME (units (unknown) date) unknown) (unknown) (no (unknown) (unknown) 500 mg PO QID (units ( unknown) date) Qty: 40 0RF unknown) (unknown) (no (unknown) (unknown) 800 mg PO TID (units ( unknown) date) Qty: 270 3RF unknown) (unknown) (no (unknown) (unknown) 800 mg PO TID (units ( unknown) date) Qty: 30 0RF unknown) (unknown) (no (unknown) (unknown) ABD: Abdomen is (units (unknown) date) soft and unknown) nontender. There is no guarding or rebound. Bowel (unknown) (no (unknown) (unknown) ALMOST (units (unkno wn) date) unknown) (unknown) (no (unknown) (unknown) Activity (units (unkno wn) date) Restrictions/Addit unknown) ional Instructions: (unknown) (no (unknown) (unknown) Age/Sex: 32 / F (units (unknown) date) unknown) (unknown) (no (unknown) (unknown) Allergies (units (unkn own) date) unknown) (unknown) (no (unknown) (unknown) Allergy/AdvReac (units (unknown) date) Type Severity unknown) Reaction Status Date / Time (unknown) (no (unknown) (unknown) Ankle sprain and (units (unknown) date) strain unknown) (unknown) (no (unknown) (unknown) BAD RASH' (units (unkn own) date) unknown) (unknown) (no (unknown) (unknown) Blood Pressure (units (unknown) date) 117/77 12/15/22 unknown) 20:07 (unknown) (no (unknown) (unknown) Blood Pressure (units (unknown) date) 117 unknown) (unknown) (no (unknown) (unknown) CARDIOVASCULAR: (units (unknown) date) Denies chest pain, unknown) palpitations, orthopnea, edema, (unknown) (no (unknown) (unknown) CHEST: Lungs are (units (unknown) date) clear to unknown) auscultation bilaterally and free of wheezes, rales, (unknown) (no (unknown) (unknown) Chief Complaint: (units (unknown) date) Extremity Injury, unknown) Lower (unknown) (no (unknown) (unknown) Clinical (units (unkno wn) date) Impression: unknown) (unknown) (no (unknown) (unknown) Controlled type 2 (units (unknown) date) diabetes mellitus unknown) without complication, without long-term (unknown) (no (unknown) (unknown) Course (units (unkno wn) date) unknown) (unknown) (no (unknown) (unknown) : 1990 (units (unknown) date) Acct:[id number] unknown) (unknown) (no (unknown) (unknown) Date of Service: (units (unknown) date) 12/15/22 unknown) (unknown) (no (unknown) (unknown) Departure (units (unkn own) date) unknown) (unknown) (no (unknown) (unknown) Discharge Plan (units (unknown) date) unknown) (unknown) (no (unknown) (unknown) Dose Instruction: (units (unknown) date) unknown) (unknown) (no (unknown) (unknown) ED Orders (units (unkn own) date) unknown) (unknown) (no (unknown) (unknown) ER Physician: (units ( unknown) date) Dom Andrade D.O. unknown) (unknown) (no (unknown) (unknown) EVERYTHING (units (unk nown) date) unknown) (unknown) (no (unknown) (unknown) EXT: Right ankle (units (unknown) date) with minimal unknown) lateral swelling, no ligamentous instability, (unknown) (no (unknown) (unknown) EYES: Pupils are (units (unknown) date) equal, round, and unknown) reactive to light and accommodation. (unknown) (no (unknown) (unknown) Emergency Report (units (unknown) date) unknown) (unknown) (no (unknown) (unknown) Exam Narrative: (units (unknown) date) unknown) (unknown) (no (unknown) (unknown) Exam (units (unkno wn) date) unknown) (unknown) (no (unknown) (unknown) Extraoccular (units (u nknown) date) muscles are intact unknown) bilaterally. There is no subconjunctival (unknown) (no (unknown) (unknown) Family History (units (unknown) date) (Reviewed 12/20/22 unknown) @ 08:18 by Dom Andrade DO) (unknown) (no (unknown) (unknown) Findings and (units (u nknown) date) discharge unknown) diagnosis discussed with patient/family followed by (unknown) (no (unknown) (unknown) GASTROINTESTINAL: (units (unknown) date) Denies nausea, unknown) vomiting, abdominal pain, diarrhea, (unknown) (no (unknown) (unknown) GEN: AOx3 and in (units (unknown) date) mild distress unknown) (unknown) (no (unknown) (unknown) GENERAL: Denies (units (unknown) date) chills, fatigue, unknown) malaise, fever, sweats. (unknown) (no (unknown) (unknown) : Denies (units (unk nown) date) dysuria, unknown) frequency, incontinence, hematuria, urinary retention. (unknown) (no (unknown) (unknown) General (units (unkno wn) date) unknown) (unknown) (no (unknown) (unknown) HEENT: Denies (units ( unknown) date) sinus pain, ear unknown) pain, sore throat, difficulty swallowing, (unknown) (no (unknown) (unknown) HPI - Extremity (units (unknown) date) Injury (Lower) unknown) (unknown) (no (unknown) (unknown) HPI Narrative: (units (unknown) date) unknown) (unknown) (no (unknown) (unknown) History of (units (unk nown) date) Present Illness unknown) (unknown) (no (unknown) (unknown) Home Medications (units (unknown) date) unknown) (unknown) (no (unknown) (unknown) Denis Ferrer, (units (unknown) date) DO, [place] [Primary unknown) Care Provider] (unknown) (no (unknown) (unknown) Hypothyroidism, (units (unknown) date) unspecified type unknown) (unknown) (no (unknown) (unknown) Imaging reviewed: (units (unknown) date) No significant unknown) findings (unknown) (no (unknown) (unknown) Initial Vital (units ( unknown) date) Signs unknown) (unknown) (no (unknown) (unknown) Initial Vital (units ( unknown) date) Signs: unknown) (unknown) (no (unknown) (unknown) Instructions: (units ( unknown) date) Ankle Sprain unknown) (unknown) (no (unknown) (unknown) [facility] (units (unknown) date) [address] [place] [address] Street unknown) [place] [address] (unknown) (no (unknown) (unknown) KILLED ME' (units (unk nown) date) unknown) (unknown) (no (unknown) (unknown) MDM - Extremity (units (unknown) date) Injury (Lower) unknown) (unknown) (no (unknown) (unknown) MDM Narrative (units ( unknown) date) unknown) (unknown) (no (unknown) (unknown) MUSCULOSKELETAL: (units (unknown) date) See HPI unknown) (unknown) (no (unknown) (unknown) Medical decision (units (unknown) date) making narrative: unknown) (unknown) (no (unknown) (unknown) Medication (units (unk nown) date) Instructions unknown) Recorded Confirmed (unknown) (no (unknown) (unknown) Medication (units (unk nown) date) Instructions unknown) Recorded (unknown) (no (unknown) (unknown) Mode of arrival: (units (unknown) date) Wheelchair unknown) (unknown) (no (unknown) (unknown) Mother (units (unkno wn) date) 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 (unknown) (no (unknown) (unknown) Multiple (units (unkno wn) date) etiologies for unknown) patient's symptoms considered including, but not limited (unknown) (no (unknown) (unknown) NAUSEA AND (units (unk nown) date) unknown) (unknown) (no (unknown) (unknown) NEUROLOGIC: (units (un known) date) Denies weakness, unknown) headache, numbness, change in speech, confusion, (unknown) (no (unknown) (unknown) Narrative (units (unkn own) date) unknown) (unknown) (no (unknown) (unknown) Narrative: (units (unk nown) date) unknown) (unknown) (no (unknown) (unknown) No Action (units (unkn own) date) unknown) (unknown) (no (unknown) (unknown) Ordered: (units (unkno wn) date) unknown) (unknown) (no (unknown) (unknown) Orders (units (unkno wn) date) unknown) (unknown) (no (unknown) (unknown) Oxygen Delivery (units (unknown) date) Method 12/15/22 unknown) 20:07 (unknown) (no (unknown) (unknown) Oxygen Delivery (units (unknown) date) Method Room Air unknown) (unknown) (no (unknown) (unknown) PSYCHIATRIC: No (units (unknown) date) concerning unknown) psychosocial issues. (unknown) (no (unknown) (unknown) PT NEEDS TO EST. (units (unknown) date) CARE W/NEW PCP unknown) PRIOR TO ANY FUTURE FILLS. PLEASE CALL TO (unknown) (no (unknown) (unknown) Patient (units (unkno wn) date) Disposition: Home unknown) (unknown) (no (unknown) (unknown) Patient History (units (unknown) date) unknown) (unknown) (no (unknown) (unknown) Patient's (units (unkn own) date) symptoms improved unknown) over duration of stay with above-stated therapies. (unknown) (no (unknown) (unknown) Patient: (units (unkno wn) date) Vivek Almendarez K unknown) MR#: [id number] (unknown) (no (unknown) (unknown) Prescriptions: (units (unknown) date) unknown) (unknown) (no (unknown) (unknown) Previous Rx's (units ( unknown) date) unknown) (unknown) (no (unknown) (unknown) Prior Charts (units (u nknown) date) reviewed: Per unknown) notes in EMR reviewed (unknown) (no (unknown) (unknown) Pulse Oximetry (units (unknown) date) 100 12/15/22 20:07 unknown) (unknown) (no (unknown) (unknown) Pulse Oximetry (units (unknown) date) 100 unknown) (unknown) (no (unknown) (unknown) Pulse Rate 107 H (units (unknown) date) 12/15/22 20:07 unknown) (unknown) (no (unknown) (unknown) Pulse Rate 107 H (units (unknown) date) unknown) (unknown) (no (unknown) (unknown) RESPIRATORY: (units (u nknown) date) Denies dyspnea, unknown) cough, wheezing, hemoptysis, sputum. (unknown) (no (unknown) (unknown) Referrals: (units (unk nown) date) unknown) (unknown) (no (unknown) (unknown) Related Data (units (u nknown) date) unknown) (unknown) (no (unknown) (unknown) Resource line at (units (unknown) date) [phone]. They unknown) will ask some questions about your medical (unknown) (no (unknown) (unknown) Respiratory Rate (units (unknown) date) 16 12/15/22 20:07 unknown) (unknown) (no (unknown) (unknown) Respiratory Rate (units (unknown) date) 16 unknown) (unknown) (no (unknown) (unknown) Return precautions (units (unknown) date) discussed with unknown) patient/family whom verbalize understanding of (unknown) (no (unknown) (unknown) Review of Systems (units (unknown) date) unknown) (unknown) (no (unknown) (unknown) Rx Instructions: (units (unknown) date) unknown) (unknown) (no (unknown) (unknown) SCHED. APPT (units (un known) date) 04/08/20 unknown) (unknown) (no (unknown) (unknown) SKIN: Denies (units (u nknown) date) rash, skin unknown) lesions, or other (unknown) (no (unknown) (unknown) SKIN: Warm, pink, (units (unknown) date) and dry. No unknown) erythema or rash (unknown) (no (unknown) (unknown) See Rx (units (unkno wn) date) Instructions PO unknown) .COMPLEX Qty: 9 6RF (unknown) (no (unknown) (unknown) See Rx (units (unkno wn) date) Instructions PO unknown) BEDTIME Qty: 90 3RF (unknown) (no (unknown) (unknown) Signed By: (units (unk nown) date) unknown) (unknown) (no (unknown) (unknown) Smoking Status: (units (unknown) date) Never smoker unknown) (unknown) (no (unknown) (unknown) Social History (units (unknown) date) (Reviewed 12/20/22 unknown) @ 08:18 by Dom Andrade DO) (unknown) (no (unknown) (unknown) Source: patient (units (unknown) date) and family unknown) (unknown) (no (unknown) (unknown) Stand Alone (units (un known) date) Forms: Patient unknown) Portal/API (unknown) (no (unknown) (unknown) Stated Complaint: (units (unknown) date) Fell/pain to both unknown) legs (unknown) (no (unknown) (unknown) Status post (units (un known) date) appendectomy unknown) (unknown) (no (unknown) (unknown) Substance Use (units ( unknown) date) Type: marijuana unknown) (unknown) (no (unknown) (unknown) Surgical History (units (unknown) date) (Reviewed 12/20/22 unknown) @ 08:18 by Dom Andrade DO) (unknown) (no (unknown) (unknown) Temperature 97.9 (units (unknown) date) F 12/15/22 20:07 unknown) (unknown) (no (unknown) (unknown) Temperature 97.9 (units (unknown) date) F unknown) (unknown) (no (unknown) (unknown) Time Seen by (units (u nknown) date) Provider: 12/15/22 unknown) 20:49 (unknown) (no (unknown) (unknown) VOMITING (units (unkno wn) date) unknown) (unknown) (no (unknown) (unknown) Vital Signs - 8 (units (unknown) date) hr unknown) (unknown) (no (unknown) (unknown) Vital Signs (units (un known) date) unknown) (unknown) (no (unknown) (unknown) Vital signs: (units (u nknown) date) unknown) (unknown) (no (unknown) (unknown) WORSE' (units (unkno wn) date) unknown) (unknown) (no (unknown) (unknown) XR ankle LT min (units (unknown) date) 3V Stat unknown) (unknown) (no (unknown) (unknown) XR ankle RT min (units (unknown) date) 3V Stat unknown) (unknown) (no (unknown) (unknown) [ ] New (units (unkno wn) date) medication unknown) prescriptions sent to your pharmacy: [ ] (unknown) (no (unknown) (unknown) [ ] New (units (unkno wn) date) medication written unknown) as a paper prescription (unknown) (no (unknown) (unknown) [ x] No new (units (un known) date) medications given unknown) (unknown) (no (unknown) (unknown) [31F with (units (unkn own) date) bilateral ankle unknown) pain since an injury yesterday.] (unknown) (no (unknown) (unknown) [From SUDAFED] (units (unknown) date) unknown) (unknown) (no (unknown) (unknown) [ (units (unkn own) date) VITAMIN] 1 tab PO unknown) BID ##0 10/06/17 04/23/20 (unknown) (no (unknown) (unknown) [ (units (unkn own) date) VITAMIN] unknown) (unknown) (no (unknown) (unknown) alcohol intake (units (unknown) date) frequency: unknown) holidays/special occasions only (unknown) (no (unknown) (unknown) alcohol intake: (units (unknown) date) never unknown) (unknown) (no (unknown) (unknown) ambulation. She (units (unknown) date) states that as unknown) part of her fall she inverted her ankle and has (unknown) (no (unknown) (unknown) amitriptyline 10 (units (unknown) date) mg tablet See Rx unknown) Instructions PO BEDTIME #90 08/15/19 (unknown) (no (unknown) (unknown) amitriptyline 10 (units (unknown) date) mg tablet unknown) (unknown) (no (unknown) (unknown) and medial ankle (units (unknown) date) has some bruising unknown) that causes a little bit of pain but not so (unknown) (no (unknown) (unknown) appointment. Let (units (unknown) date) them know you were unknown) seen in the Emergency Department and that we (unknown) (no (unknown) (unknown) ask that you be (units (unknown) date) seen in follow up. unknown) We will electronically transmit a record of (unknown) (no (unknown) (unknown) cephalexin 500 mg (units (unknown) date) capsule 500 mg PO unknown) QID #40 caps 04/10/20 (unknown) (no (unknown) (unknown) cephalexin 500 mg (units (unknown) date) capsule unknown) (unknown) (no (unknown) (unknown) complaint (units (unkn own) date) unknown) (unknown) (no (unknown) (unknown) concerning (units (unk nown) date) symptoms, such as unknown) [fever greater than 101 F, shaking chills, (unknown) (no (unknown) (unknown) constipation, (units ( unknown) date) melena. unknown) (unknown) (no (unknown) (unknown) current use of (units (unknown) date) insulin unknown) (unknown) (no (unknown) (unknown) cyclobenzaprine (units (unknown) date) 10 mg tablet 10 mg unknown) PO TID 03/27/19 04/23/20 (unknown) (no (unknown) (unknown) cyclobenzaprine (units (unknown) date) 10 mg tablet unknown) (unknown) (no (unknown) (unknown) denies prodromal (units (unknown) date) symptoms such as unknown) dizziness, weakness or lightheadedness. She (unknown) (no (unknown) (unknown) diagnosis and (units ( unknown) date) plan unknown) (unknown) (no (unknown) (unknown) dizziness. (units (unk nown) date) unknown) (unknown) (no (unknown) (unknown) duloxetine 20 mg (units (unknown) date) capsule,delayed 40 unknown) mg PO BEDTIME 03/27/19 04/23/20 (unknown) (no (unknown) (unknown) duloxetine 20 mg (units (unknown) date) capsule,delayed unknown) release(DR/EC) (unknown) (no (unknown) (unknown) gabapentin 800 mg (units (unknown) date) tablet 800 mg PO unknown) TID #270 tabs 05/20/21 (unknown) (no (unknown) (unknown) gabapentin (units (unk nown) date) [Neurontin] 800 mg unknown) tablet (unknown) (no (unknown) (unknown) gallops. There is (units (unknown) date) no chest wall unknown) tenderness. (unknown) (no (unknown) (unknown) hemorrhage or (units ( unknown) date) exudate. unknown) (unknown) (no (unknown) (unknown) history and help (units (unknown) date) get you set up unknown) with a doctor in the community. (unknown) (no (unknown) (unknown) hydrocodone 5 (units ( unknown) date) mg-acetaminophen unknown) 325 1 tab PO Q8H PRN pain #20 tabs 04/23/20 (unknown) (no (unknown) (unknown) hydrocodone-aceta (units (unknown) date) minophen 5-325 mg unknown) tablet (unknown) (no (unknown) (unknown) ibuprofen 800 mg (units (unknown) date) tablet 800 mg PO unknown) TID #30 tabs 04/23/20 (unknown) (no (unknown) (unknown) ibuprofen 800 mg (units (unknown) date) tablet unknown) (unknown) (no (unknown) (unknown) inhaler (Dulera) (units (unknown) date) unknown) (unknown) (no (unknown) (unknown) is had no chest (units (unknown) date) pain or shortness unknown) of breath. She states that her left lower leg (unknown) (no (unknown) (unknown) ketorolac 10 mg (units (unknown) date) tablet 10 mg PO unknown) TID PRN pain #14 tabs 08/18/20 (unknown) (no (unknown) (unknown) ketorolac 10 mg (units (unknown) date) tablet unknown) (unknown) (no (unknown) (unknown) latex Allergy (units ( unknown) date) Intermediate Rash unknown) Verified 12/15/22 20:12 (unknown) (no (unknown) (unknown) loratadine 10 mg (units (unknown) date) tablet 10 mg PO unknown) QDAY #30 tabs 11/11/20 (unknown) (no (unknown) (unknown) loratadine 10 mg (units (unknown) date) tablet unknown) (unknown) (no (unknown) (unknown) mcg-5 (units (unkno wn) date) mcg/actuation unknown) aerosol (unknown) (no (unknown) (unknown) melatonin 10 mg (units (unknown) date) tablet 10 mg PO unknown) BEDTIME 03/27/19 04/23/20 (unknown) (no (unknown) (unknown) melatonin 10 mg (units (unknown) date) tablet unknown) (unknown) (no (unknown) (unknown) metoclopramide (units (unknown) date) HCl 10 mg tablet unknown) 10 mg PO Q6H PRN nausea and 07/11/21 (unknown) (no (unknown) (unknown) metoclopramide (units (unknown) date) HCl [Reglan] 10 mg unknown) tablet (unknown) (no (unknown) (unknown) mg tablet (units (unkn own) date) unknown) (unknown) (no (unknown) (unknown) mometasone-formot (units (unknown) date) jody HFA 100 2 inh unknown) INH BID #1 inh 01/16/18 (unknown) (no (unknown) (unknown) mometasone-formot (units (unknown) date) jody [Dulera] 100 unknown) MCG/5 MCG HFA aerosol inhaler (unknown) (no (unknown) (unknown) montelukast 10 mg (units (unknown) date) tablet 10 mg PO unknown) QDAY #30 tabs 10/03/19 (unknown) (no (unknown) (unknown) montelukast 10 mg (units (unknown) date) tablet unknown) (unknown) (no (unknown) (unknown) morphine (units (unkno wn) date) [MORPHINE] Allergy unknown) Severe N+V Verified 12/15/22 20:11 (unknown) (no (unknown) (unknown) much today as (units ( unknown) date) yesterday, however unknown) her right ankle causes her pain with (unknown) (no (unknown) (unknown) multiple family (units (unknown) date) members in the unknown) chief complaint of bilateral ankle pain since (unknown) (no (unknown) (unknown) neurovascularly (units (unknown) date) intact unknown) (unknown) (no (unknown) (unknown) omeprazole 20 mg (units (unknown) date) capsule,delayed 20 unknown) mg PO DAILY #30 caps 04/08/20 (unknown) (no (unknown) (unknown) omeprazole 20 mg (units (unknown) date) capsule,delayed unknown) release(DR/EC) (unknown) (no (unknown) (unknown) ondansetron (units (un known) date) [ONDANSETRON] unknown) AdvReac Intermediate 'MADE MY Verified 12/15/22 20:11 (unknown) (no (unknown) (unknown) or rhonchi. Heart (units (unknown) date) rate is regular unknown) rhythm, there are no murmurs, clicks, rubs, or (unknown) (no (unknown) (unknown) pain. She denies (units (unknown) date) any hip or knee unknown) injury and is otherwise well and free of (unknown) (no (unknown) (unknown) paroxetine [From (units (unknown) date) PAXIL] Allergy unknown) Intermediate SAW 3 OF Verified 12/15/22 20:11 (unknown) (no (unknown) (unknown) pseudoephedrine (units (unknown) date) AdvReac Severe unknown) MIGRAINES Verified 12/15/22 20:11 (unknown) (no (unknown) (unknown) purplish bruising (units (unknown) date) just superior to unknown) joint. No ligamentous instability, negative (unknown) (no (unknown) (unknown) release (units (unkno wn) date) unknown) (unknown) (no (unknown) (unknown) second hand (units (un known) date) exposure: No unknown) (unknown) (no (unknown) (unknown) seizures, (units (unkn own) date) incoordination. unknown) (unknown) (no (unknown) (unknown) sertraline (units (unk nown) date) [SERTRALINE] unknown) AdvReac Mild felt like Verified 12/15/22 20:11 (unknown) (no (unknown) (unknown) she was (units (unkno wn) date) unknown) (unknown) (no (unknown) (unknown) some pain over (units (unknown) date) lateral malleolus. unknown) No pain on squeeze test. Left ankle with some (unknown) (no (unknown) (unknown) sounds are normal (units (unknown) date) in all 4 unknown) quadrants. There is no mass or organomegaly. (unknown) (no (unknown) (unknown) squeeze test. (units ( unknown) date) Bilaterally hips unknown) and knees are nontender. These injuries are (unknown) (no (unknown) (unknown) substance use (units ( unknown) date) type: does not use unknown) (unknown) (no (unknown) (unknown) sumatriptan (units (un known) date) succinate 25 mg unknown) tablet See Rx Instructions PO .COMPLEX #9 10/03/19 (unknown) (no (unknown) (unknown) sumatriptan (units (un known) date) succinate 25 mg unknown) tablet (unknown) (no (unknown) (unknown) tabs (units (unkno wn) date) unknown) (unknown) (no (unknown) (unknown) take 1 tab at (units ( unknown) date) onset of headache; unknown) if no relief may repeat 1 tab in 2hr; max = (unknown) (no (unknown) (unknown) to: [Sprain, (units (u nknown) date) fracture, unknown) dislocation versus other] (unknown) (no (unknown) (unknown) today's note if (units (unknown) date) your PCP is in our unknown) system (unknown) (no (unknown) (unknown) topiramate 100 mg (units (unknown) date) tablet (Topamax) unknown) 100 mg PO BID #60 tabs 03/22/19 (unknown) (no (unknown) (unknown) topiramate (units (unk nown) date) [Topamax] 100 mg unknown) tablet (unknown) (no (unknown) (unknown) tripping and (units (u nknown) date) falling yesterday. unknown) She denies any head neck or back pain. She (unknown) (no (unknown) (unknown) verbalization of (units (unknown) date) understanding unknown) (unknown) (no (unknown) (unknown) vinyl gloves (units (u nknown) date) Allergy Severe unknown) 'REALLY Uncoded 06/27/21 17:12 (unknown) (no (unknown) (unknown) worsening pain, (units (unknown) date) persistent unknown) vomiting or other bothersome symptoms] Social History date description facility 2022-12-15 00:00 Never smoked tobacco (finding) [facility] Vital Signs date measurement value units 2022-12-15 00:00 BMI 39.9 kg/m2 2022-12-15 00:00 BP_diastolic 61 mmHg 2022-12-15 00:00 BP_systolic 120 mmHg 2022-12-15 00:00 heart_rate 88 /min 2022-12-15 00:00 height_metric 157.48 cm 2022-12-15 00:00 height_standard 62 in 2022-12-15 00:00 o2_saturation 98 % 2022-12-15 00:00 respiration_rate 18 /min 2022-12-15 00:00 temperature_metric 36.61 C 2022-12-15 00:00 temperature_standard 97.9 F 2022-12-15 00:00 weight_metric 98.88 kg 2022-12-15 00:00 weight_standard 217.99 lb
== END 2023-02-10 17:39 | disposition home or self-care (01) ==
LOC: ED 16:29
DX: G50.0 Trigeminal neuralgia (principal)
CPT/HCPCS: 99282; 99283; A9270

== ENCOUNTER 2023-04-25 17:59 | Emergency (ER) | payer MEDICAID ==
--- NOTE | 2023-04-25 18:39 | ED Physician Documentation ---
PD HPI HEENT - Stated complaint Stated Complaint: STUFFY NOSE,CHEST PX - Chief complaint Chief Complaint: Resp - History obtained from History obtained from: Patient - Additional information Additional information: The patient comes to the emergency department chief complaint of ongoing sinus congestion, cough, stuffy ears, and sore throat. She was seen last week for similar symptoms in urgent care and was placed on steroid course. She states that she has not had any fevers but just still continues to have upper respiratory symptoms and she is still coughing. She denies shortness of breath. She is not a smoker but lives with a smoker. No other complaints at this time. No GI symptoms. PD PAST MEDICAL HISTORY - Past Medical History Cardiovascular: None Respiratory: Asthma Neuro: Migraines Endocrine/Autoimmune: None GI: None [employer]: None : None HEENT: None Psych: Depression, Anxiety, Post traumatic stress disorder, Other Musculoskeletal: Fibromyalgia Derm: None - Past Surgical History Past Surgical History: Yes General: Appendectomy - Present Medications Home Medications: Ambulatory Orders Medication Instructions Recorded Confirmed Albuterol [Ventolin Hfa] 2 puffs INH Q4H PRN 11/13/13 02/10/23 Gabapentin [Neurontin] 800 mg PO TID 11/13/13 02/10/23 Topiramate [Topamax] 100 mg PO BID 11/13/13 02/10/23 Montelukast Sodium [Singulair] 10 mg PO DAILY 06/09/15 02/10/23 Cyclobenzaprine [Flexeril] 10 mg PO BID 06/17/22 02/10/23 DULoxetine [Cymbalta] 20 mg ORAL BID 09/05/22 02/10/23 Galcanezumab-Gnlm [Emgality] 120 mg SQ Q28D 09/05/22 02/10/23 Loratadine [Allergy Relief] 10 mg PO DAILY 09/05/22 02/10/23 Meclizine HCl [Motion Sickness] 25 mg PO DAILY PRN 09/05/22 02/10/23 Mometasone/Formoterol [Dulera 50 1 puffs IH BID 09/05/22 02/10/23 Mcg-5 Mcg Inhaler] Sumatriptan Succinate [Imitrex] 50 mg PO PRN PRN 09/05/22 02/10/23 EPINEPHrine [Epipen Jr] 0.15 mg IM ONCE PRN 02/10/23 02/10/23 Medroxyprogesterone Acetate 104 mg SQ ONCE 02/10/23 02/10/23 [Depo-Subq Provera 104] carBAMazepine [Tegretol Xr] 100 mg PO BID #60 ea 02/10/23 Benzonatate [Tessalon] 200 mg PO TID PRN #15 cap 04/25/23 - Allergies Allergies/Adverse Reactions: Allergies Allergy/AdvReac Type Severity Reaction Status Date / Time aspirin Allergy Intermediate Nausea Verified 04/25/23 18:06 morphine Allergy Intermediate Respiratory Verified 04/25/23 18:06 basil Allergy Anaphylaxis Verified 04/25/23 18:06 dex Allergy Anaphylaxis Verified 04/25/23 18:06 ondansetron Allergy Emesis Verified 04/25/23 18:06 [From Zofran (as hydrochloride)] paroxetine HCl * [From Paxil] Allergy Unknown Verified 04/25/23 18:06 pseudoephedrine Allergy Dizziness Verified 04/25/23 18:06 [From Sudafed] ibuprofen AdvReac Cramps Verified 04/25/23 18:06 - Social History Does the pt smoke?: No Smoking Status: Never smoker Does the pt drink ETOH?: No Does the pt have substance abuse?: No - Immunizations Immunizations are current?: No Immunizations: TDAP >10years/unknown - POLST Patient has POLST: No PD ED PE NORMAL - Vitals Vital signs reviewed: Yes - General General: Alert and oriented X 3, No acute distress, Well developed/nourished - HEENT HEENT: Atraumatic, PERRL, EOMI, Ears normal, Moist mucous membranes, Pharynx benign - Neck Neck: Supple, no meningeal sign - Cardiac Cardiac: RRR, No murmur - Respiratory Respiratory: No respiratory distress, Clear bilaterally - Abdomen Abdomen: Soft, Non tender, Non distended - Derm Derm: Normal color, Warm and dry, No rash - Extremities Extremities: No deformity, No edema - Neuro Neuro: Alert and oriented X 3, Other (Grossly intact) - Psych Psych: Normal mood, Normal affect Results - Vitals Vitals: Vital Signs - 24 hr 04/25/23 18:03 Temperature 36.1 C L Heart Rate 116 H Respiratory 16 Rate Blood Pressure 138/75 H O2 Saturation 98 Oxygen O2 Source Room air PD Medical Decision Making - ED course Complexity details: reviewed results, re-evaluated patient, considered differential, d/w patient ED course: I discussed with the patient that her symptoms are consistent with a viral illness and the antibiotics are not can be helpful in the situation. She may have lingering effects of the viral illness she was diagnosed with last week or that she may have picked up something else on top of that. I have discussed with the patient that ultimately, the symptoms will be self-limited. We have discussed symptomatic management at home as well as the usual locations for return. Departure - Departure Disposition: Home, Self Care Clinical Impression: Viral URI Condition: Stable Instructions: ED Viral Syndrome Prescriptions: Benzonatate [Tessalon] 200 mg PO TID PRN #15 cap PRN Reason: Cough Comments: A viral panel has been obtained and is pending at this time. We will let you know if there are any significant positive results. Most likely, you have a viral illness, which will need to pass on its own. Sometimes, when you have already been sick with 1 thing, you are more susceptible to get something else because you have already been knocked down by 1 illness. Nonetheless, antibiotics are not helpful for viruses and ultimately, your body has to fight the illness off on its own. You should be sure to stay hydrated. You may take your normal medications at home. A prescription for cough medicine has been electronically transmitted to the [facility] pharmacy in [place], and you may pick this up tonight and take it as needed. Please follow-up with your primary doctor for further concerns.
--- OUTSIDE RECORDS SUMMARY | 2023-04-25 18:44 | EXTERNAL MEDICAL SUMMARY RPT | Continuity of Care Document ---
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 Name Role Phone Denis Ferrer Unavailable Unavailable Allergies and Intolerances date description facility type (no date) latex [facility] (unknown) (no date) morphine [facility] (unknown) (no date) ondansetron [facility] (unknown) (no date) paroxetine [facility] (unknown) (no date) pseudoephedrine [facility] (unknown) (no date) sertraline [facility] (unknown) Medications date description facility 2023-03-17 00:00 Amoxicillin-Pot [facility]avulanate [facility] Problems date description facility 2023-03-17 00:00 Dental caries [facility] Results/Labs test date author facility value unit interpretation Result panel 1 (unknown) (no date) (unknown) (unknown) (no value) (units unknown) (unknown) (unknown) (no date) (unknown) (unknown) 'MORPHINE (units unknown) (unknown) (unknown) (no date) (unknown) (unknown) 'on clouds' (units unknown) (unknown) (unknown) (no date) (unknown) (unknown) (Neurontin) (units unknown) (unknown) (unknown) (no date) (unknown) (unknown) (Reglan) vomit ing #10 tabs (units unknown) (unknown) (unknown) (no date) (unknown) (unknown) [id number] (units unknown) (unknown) (unknown) (no date) (unknown) (unknown) 02:52 (units unknown) (unknown) (unknown) (no date) (unknown) (unknown) 03/17/23 (units unknown) (unknown) (unknown) (no date) (unknown) (unknown) 1 tab PO BID Qty: 0 (units unknown) (unknown) (unknown) (no date) (unknown) (unknown) 1 tab PO BID Q ty: 14 0RF (units unknown) (unknown) (unknown) (no date) (unknown) (unknown) 1 tab PO Q8H P RN (Reason: pain) Qty: 20 0RF (units unknown) (unknown) (unknown) (no date) (unknown) (unknown) 10 mg PO BEDTIME (un its unknown) (unknown) (unknown) (no date) (unknown) (unknown) 10 mg PO Q6H P RN (Reason: nausea and vomiting) Qty: 10 0RF (units unknown) (unknown) (unknown) (no date) (unknown) (unknown) 10 mg PO QDAY Qty: 30 6RF (units unknown) (unknown) (unknown) (no date) (unknown) (unknown) 10 mg PO TID P RN (Reason: pain) Qty: 14 0RF (units unknown) (unknown) (unknown) (no date) (unknown) (unknown) 10 mg PO TID (units unknown) (unknown) (unknown) (no date) (unknown) (unknown) 10-30mg PO bedtime; (units unknown) (unknown) (unknown) (no date) (unknown) (unknown) 100 mg PO BID Qty: 60 6RF (units unknown) (unknown) (unknown) (no date) (unknown) (unknown) 2 inh INH BID Qty: 1 12RF (units unknown) (unknown) (unknown) (no date) (unknown) (unknown) 20 mg PO DAILY Qty: 30 0RF (units unknown) (unknown) (unknown) (no date) (unknown) (unknown) 4 tabs/day (24hr) PO (units unknown) (unknown) (unknown) (no date) (unknown) (unknown) 40 mg PO BEDTIME (un its unknown) (unknown) (unknown) (no date) (unknown) (unknown) 500 mg PO QID Qty: 40 0RF (units unknown) (unknown) (unknown) (no date) (unknown) (unknown) 800 mg PO TID Qty: 270 3RF (units unknown) (unknown) (unknown) (no date) (unknown) (unknown) 800 mg PO TID Qty: 30 0RF (units unknown) (unknown) (unknown) (no date) (unknown) (unknown) ALMOST (units unknown) (unknown) (unknown) (no date) (unknown) (unknown) Activity Restrictions/Addition al Instructions: (units unknown) (unknown) (unknown) (no date) (unknown) (unknown) Age/Sex: 32 / F (uni ts unknown) (unknown) (unknown) (no date) (unknown) (unknown) Al Hydrox/Mg Hydrox/Simethicone 20 ml/ Lidocaine HCl 15 ml 0 ml PO NOW ONE (units unknown) (unknown) (unknown) (no date) (unknown) (unknown) Allergies (units unknown) (unknown) (unknown) (no date) (unknown) (unknown) Allergy/AdvRea c Type Severity Reaction Status Date / Time (units unknown) (unknown) (unknown) (no date) (unknown) (unknown) Amoxicillin/Cl avulana te Potassium (Amoxicillin/Clav 875/125 Mg) 1 tab PO NOW (units unknown) (unknown) (unknown) (no date) (unknown) (unknown) BAD RASH' (units unknown) (unknown) (unknown) (no date) (unknown) (unknown) Blood Pressure 129/78 03/17/23 02:52 (units unknown) (unknown) (unknown) (no date) (unknown) (unknown) Blood Pressure 129/7 8 (units unknown) (unknown) (unknown) (no date) (unknown) (unknown) Chief Complain t: Neck Pain/Injury (units unknown) (unknown) (unknown) (no date) (unknown) (unknown) Clinical Impression: (units unknown) (unknown) (unknown) (no date) (unknown) (unknown) Controlled typ e 2 diabetes mellitus without complication, without long-term (units unknown) (unknown) (unknown) (no date) (unknown) (unknown) Course (units unknown) (unknown) (unknown) (no date) (unknown) (unknown) : 1 Acct:[id number] (units unknown) (unknown) (unknown) (no date) (unknown) (unknown) Date of Servic e: 03/17/23 (units unknown) (unknown) (unknown) (no date) (unknown) (unknown) Dental caries (units unknown) (unknown) (unknown) (no date) (unknown) (unknown) Departure (units unknown) (unknown) (unknown) (no date) (unknown) (unknown) Discharge Plan (unit s unknown) (unknown) (unknown) (no date) (unknown) (unknown) Discontinued Medications (units unknown) (unknown) (unknown) (no date) (unknown) (unknown) Dose Instruction: (u nits unknown) (unknown) (unknown) (no date) (unknown) (unknown) ER Physician: Jackson Maldonado MD (units unknown) (unknown) (unknown) (no date) (unknown) (unknown) EVERYTHING (units unknown) (unknown) (unknown) (no date) (unknown) (unknown) Emergency Report (un its unknown) (unknown) (unknown) (no date) (unknown) (unknown) Exam (units unknown) (unknown) (unknown) (no date) (unknown) (unknown) Family History (units unknown) (unknown) (unknown) (no date) (unknown) (unknown) General (units unknown) (unknown) (unknown) (no date) (unknown) (unknown) HPI - Neck Pain/Injury (units unknown) (unknown) (unknown) (no date) (unknown) (unknown) Home Medications (un its unknown) (unknown) (unknown) (no date) (unknown) (unknown) Denis Ferrer DO, MS [Primary Care Provider] (units unknown) (unknown) (unknown) (no date) (unknown) (unknown) Hydrocodone Bitart/Acetaminophen (Hydrocodone/Acet 5/325 Tablet) 2 tab PO NOW (units unknown) (unknown) (unknown) (no date) (unknown) (unknown) Hypothyroidism , unspecified type (units unknown) (unknown) (unknown) (no date) (unknown) (unknown) Initial Vital Signs (units unknown) (unknown) (unknown) (no date) (unknown) (unknown) Initial Vital Signs: (units unknown) (unknown) (unknown) (no date) (unknown) (unknown) Instructions: DI for Tooth Decay (units unknown) (unknown) (unknown) (no date) (unknown) (unknown) [address] [address] (units unknown) (unknown) (unknown) (no date) (unknown) (unknown) KILLED ME' (units unknown) (unknown) (unknown) (no date) (unknown) (unknown) Medication Instructions Recorded Confirmed (units unknown) (unknown) (unknown) (no date) (unknown) (unknown) Medication Instructions Recorded (units unknown) (unknown) (unknown) (no date) (unknown) (unknown) Mode of arriva l: Ambulatory (units unknown) (unknown) (unknown) (no date) (unknown) (unknown) Mother Degener ative joint disease of low back (units unknown) (unknown) (unknown) (no date) (unknown) (unknown) NAUSEA AND (units unknown) (unknown) (unknown) (no date) (unknown) (unknown) New (units unknown) (unknown) (unknown) (no date) (unknown) (unknown) No Action (units unknown) (unknown) (unknown) (no date) (unknown) (unknown) ONE (units unknown) (unknown) (unknown) (no date) (unknown) (unknown) Ordered: (units unknown) (unknown) (unknown) (no date) (unknown) (unknown) Orders (units unknown) (unknown) (unknown) (no date) (unknown) (unknown) Oxygen Deliver y Method Room Air 03/17/23 02:52 (units unknown) (unknown) (unknown) (no date) (unknown) (unknown) Oxygen Deliver y Method Room Air (units unknown) (unknown) (unknown) (no date) (unknown) (unknown) PT NEEDS TO ES T. CARE W/NEW PCP PRIOR TO ANY FUTURE FILLS. PLEASE CALL TO (units unknown) (unknown) (unknown) (no date) (unknown) (unknown) Patient Dispos ition: Home (units unknown) (unknown) (unknown) (no date) (unknown) (unknown) Patient History (uni ts unknown) (unknown) (unknown) (no date) (unknown) (unknown) Patient: Janeth Almendarez MR#: M (units unknown) (unknown) (unknown) (no date) (unknown) (unknown) Please call yo [facility] family dentist as plan to try to move up your dental (units unknown) (unknown) (unknown) (no date) (unknown) (unknown) Prescriptions: (unit s unknown) (unknown) (unknown) (no date) (unknown) (unknown) Previous Rx's (units unknown) (unknown) (unknown) (no date) (unknown) (unknown) Pulse Oximetry 98 03/17/23 02:52 (units unknown) (unknown) (unknown) (no date) (unknown) (unknown) Pulse Oximetry 98 (u nits unknown) (unknown) (unknown) (no date) (unknown) (unknown) Pulse Rate 116 H 03/17/23 02:52 (units unknown) (unknown) (unknown) (no date) (unknown) (unknown) Pulse Rate 116 H (un its unknown) (unknown) (unknown) (no date) (unknown) (unknown) Referrals: (units unknown) (unknown) (unknown) (no date) (unknown) (unknown) Related Data (units unknown) (unknown) (unknown) (no date) (unknown) (unknown) Respiratory Ra te 18 03/17/23 02:52 (units unknown) (unknown) (unknown) (no date) (unknown) (unknown) Respiratory Rate 18 (units unknown) (unknown) (unknown) (no date) (unknown) (unknown) Rx Instructions: (un its unknown) (unknown) (unknown) (no date) (unknown) (unknown) SCHED. APPT 04/08/20 ( units unknown) (unknown) (unknown) (no date) (unknown) (unknown) See Rx Instruc tions PO .COMPLEX Qty: 9 6RF (units unknown) (unknown) (unknown) (no date) (unknown) (unknown) See Rx Instruc tions PO BEDTIME Qty: 90 3RF (units unknown) (unknown) (unknown) (no date) (unknown) (unknown) Signed By: (units unknown) (unknown) (unknown) (no date) (unknown) (unknown) Smoking Status : Never smoker (units unknown) (unknown) (unknown) (no date) (unknown) (unknown) Social History (units unknown) (unknown) (unknown) (no date) (unknown) (unknown) Stand Alone Fo edy: Patient Portal/API (units unknown) (unknown) (unknown) (no date) (unknown) (unknown) Stated Complai nt: infected tooth tried removing it now hurts (units unknown) (unknown) (unknown) (no date) (unknown) (unknown) Status post appendectomy (units unknown) (unknown) (unknown) (no date) (unknown) (unknown) Stop: 03/17/23 03:01 (units unknown) (unknown) (unknown) (no date) (unknown) (unknown) Substance Use Type: marijuana (units unknown) (unknown) (unknown) (no date) (unknown) (unknown) Surgical Histo ry (units unknown) (unknown) (unknown) (no date) (unknown) (unknown) Temperature 98 .7 F 03/17/23 02:52 (units unknown) (unknown) (unknown) (no date) (unknown) (unknown) Temperature 98.7 F ( units unknown) (unknown) (unknown) (no date) (unknown) (unknown) Time Seen by Provider: 03/17/23 02:59 (units unknown) (unknown) (unknown) (no date) (unknown) (unknown) VOMITING (units unknown) (unknown) (unknown) (no date) (unknown) (unknown) Vital Signs - 8 hr ( units unknown) (unknown) (unknown) (no date) (unknown) (unknown) Vital Signs (units unknown) (unknown) (unknown) (no date) (unknown) (unknown) Vital signs: (units unknown) (unknown) (unknown) (no date) (unknown) (unknown) WORSE' (units unknown) (unknown) (unknown) (no date) (unknown) (unknown) [From SUDAFED] (unit s unknown) (unknown) (unknown) (no date) (unknown) (unknown) [ ADAM MIN] 1 tab PO BID ##0 10/06/17 04/23/20 (units unknown) (unknown) (unknown) (no date) (unknown) (unknown) [ VITAMIN] ( units unknown) (unknown) (unknown) (no date) (unknown) (unknown) alcohol intake frequency: holidays/special occasions only (units unknown) (unknown) (unknown) (no date) (unknown) (unknown) alcohol intake: mackenzie martinez (units unknown) (unknown) (unknown) (no date) (unknown) (unknown) amitriptyline 10 mg tablet See Rx Instructions PO BEDTIME #90 08/15/19 (units unknown) (unknown) (unknown) (no date) (unknown) (unknown) amitriptyline 10 mg tablet (units unknown) (unknown) (unknown) (no date) (unknown) (unknown) amoxicillin 87 5 mg-potassium 1 tab PO BID #14 tabs 03/17/23 (units unknown) (unknown) (unknown) (no date) (unknown) (unknown) amoxicillin-po t clavulanate 875-125 mg tablet (units unknown) (unknown) (unknown) (no date) (unknown) (unknown) appointment fr May. No driving operating machinery today or when taking (units unknown) (unknown) (unknown) (no date) (unknown) (unknown) cephalexin 500 mg capsule 500 mg PO QID #40 caps 04/10/20 (units unknown) (unknown) (unknown) (no date) (unknown) (unknown) cephalexin 500 mg capsule (units unknown) (unknown) (unknown) (no date) (unknown) (unknown) clavulanate 12 5 mg tablet (units unknown) (unknown) (unknown) (no date) (unknown) (unknown) current use of insulin (units unknown) (unknown) (unknown) (no date) (unknown) (unknown) cyclobenzaprin e 10 mg tablet 10 mg PO TID 03/27/19 04/23/20 (units unknown) (unknown) (unknown) (no date) (unknown) (unknown) cyclobenzaprin e 10 mg tablet (units unknown) (unknown) (unknown) (no date) (unknown) (unknown) duloxetine 20 mg capsule,delayed 40 mg PO BEDTIME 03/27/19 04/23/20 (units unknown) (unknown) (unknown) (no date) (unknown) (unknown) duloxetine 20 mg capsule,delayed release(DR/EC) (units unknown) (unknown) (unknown) (no date) (unknown) (unknown) gabapentin 800 mg tablet 800 mg PO TID #270 tabs 05/20/21 (units unknown) (unknown) (unknown) (no date) (unknown) (unknown) gabapentin [Neurontin] 800 mg tablet (units unknown) (unknown) (unknown) (no date) (unknown) (unknown) hydrocodone 5 mg-acetaminophen 325 1 tab PO Q8H PRN pain #20 tabs 04/23/20 (units unknown) (unknown) (unknown) (no date) (unknown) (unknown) hydrocodone-ac etamino phen 5-325 mg tablet (units unknown) (unknown) (unknown) (no date) (unknown) (unknown) ibuprofen 800 mg tablet 800 mg PO TID #30 tabs 04/23/20 (units unknown) (unknown) (unknown) (no date) (unknown) (unknown) ibuprofen 800 mg tablet (units unknown) (unknown) (unknown) (no date) (unknown) (unknown) if worse or fo r any questions or concerns (units unknown) (unknown) (unknown) (no date) (unknown) (unknown) inhaler (Dulera) (un its unknown) (unknown) (unknown) (no date) (unknown) (unknown) ketorolac 10 m g tablet 10 mg PO TID PRN pain #14 tabs 08/18/20 (units unknown) (unknown) (unknown) (no date) (unknown) (unknown) ketorolac 10 m g tablet (units unknown) (unknown) (unknown) (no date) (unknown) (unknown) latex Allergy Intermediate Rash Verified 12/15/22 20:12 (units unknown) (unknown) (unknown) (no date) (unknown) (unknown) loratadine 10 mg tablet 10 mg PO QDAY #30 tabs 11/11/20 (units unknown) (unknown) (unknown) (no date) (unknown) (unknown) loratadine 10 mg tablet (units unknown) (unknown) (unknown) (no date) (unknown) (unknown) mcg-5 mcg/actu ation aerosol (units unknown) (unknown) (unknown) (no date) (unknown) (unknown) melatonin 10 m g tablet 10 mg PO BEDTIME 03/27/19 04/23/20 (units unknown) (unknown) (unknown) (no date) (unknown) (unknown) melatonin 10 m g tablet (units unknown) (unknown) (unknown) (no date) (unknown) (unknown) metoclopramide HCl 10 mg tablet 10 mg PO Q6H PRN nausea and 07/11/21 (units unknown) (unknown) (unknown) (no date) (unknown) (unknown) metoclopramide HCl [Reglan] 10 mg tablet (units unknown) (unknown) (unknown) (no date) (unknown) (unknown) mg tablet (units unknown) (unknown) (unknown) (no date) (unknown) (unknown) mometasone-for moterol HFA 100 2 inh INH BID #1 inh 01/16/18 (units unknown) (unknown) (unknown) (no date) (unknown) (unknown) mometasone-for moterol [Dulera] 100 MCG/5 MCG HFA aerosol inhaler (units unknown) (unknown) (unknown) (no date) (unknown) (unknown) montelukast 10 mg tablet 10 mg PO QDAY #30 tabs 10/03/19 (units unknown) (unknown) (unknown) (no date) (unknown) (unknown) montelukast 10 mg tablet (units unknown) (unknown) (unknown) (no date) (unknown) (unknown) morphine [MORP LENORE] Allergy Severe N+V Verified 12/15/22 20:11 (units unknown) (unknown) (unknown) (no date) (unknown) (unknown) omeprazole 20 mg capsule,delayed 20 mg PO DAILY #30 caps 04/08/20 (units unknown) (unknown) (unknown) (no date) (unknown) (unknown) omeprazole 20 mg capsule,delayed release(DR/EC) (units unknown) (unknown) (unknown) (no date) (unknown) (unknown) ondansetron [ONDANSETRON] AdvReac Intermediate 'MADE MY Verified 12/15/22 20:11 (units unknown) (unknown) (unknown) (no date) (unknown) (unknown) paroxetine [Fr om PAXIL] Allergy Intermediate SAW 3 OF Verified 12/15/22 20:11 (units unknown) (unknown) (unknown) (no date) (unknown) (unknown) prescribed omaira n medication. Please continue full course of antibiotics. Return (units unknown) (unknown) (unknown) (no date) (unknown) (unknown) pseudoephedrin e AdvReac Severe MIGRAINES Verified 12/15/22 20:11 (units unknown) (unknown) (unknown) (no date) (unknown) (unknown) release (units unknown) (unknown) (unknown) (no date) (unknown) (unknown) second hand ex posure: No (units unknown) (unknown) (unknown) (no date) (unknown) (unknown) sertraline [SERTRALINE] AdvReac Mild felt like Verified 12/15/22 20:11 (units unknown) (unknown) (unknown) (no date) (unknown) (unknown) she was (units unknown) (unknown) (unknown) (no date) (unknown) (unknown) substance use type: does not use (units unknown) (unknown) (unknown) (no date) (unknown) (unknown) sumatriptan zarate ccinate 25 mg tablet See Rx Instructions PO .COMPLEX #9 10/03/19 (units unknown) (unknown) (unknown) (no date) (unknown) (unknown) sumatriptan zarate ccinate 25 mg tablet (units unknown) (unknown) (unknown) (no date) (unknown) (unknown) tabs (units unknown) (unknown) (unknown) (no date) (unknown) (unknown) take 1 tab at onset of headache; if no relief may repeat 1 tab in 2hr; max = (units unknown) (unknown) (unknown) (no date) (unknown) (unknown) topiramate 100 mg tablet (Topamax) 100 mg PO BID #60 tabs 03/22/19 (units unknown) (unknown) (unknown) (no date) (unknown) (unknown) topiramate [To pamax] 100 mg tablet (units unknown) (unknown) (unknown) (no date) (unknown) (unknown) vinyl gloves A llergy Severe 'REALLY Uncoded 06/27/21 17:12 (units unknown) (unknown) Result panel 2 (unknown) (no date) (unknown) (unknown) (no value) (units unknown) (unknown) (unknown) (no date) (unknown) (unknown) 'MORPHINE (units unknown) (unknown) (unknown) (no date) (unknown) (unknown) 'on clouds' (units unknown) (unknown) (unknown) (no date) (unknown) (unknown) (Neurontin) (units unknown) (unknown) (unknown) (no date) (unknown) (unknown) (Reglan) vomit ing #10 tabs (units unknown) (unknown) (unknown) (no date) (unknown) (unknown) [id number] (units unknown) (unknown) (unknown) (no date) (unknown) (unknown) 02:52 (units unknown) (unknown) (unknown) (no date) (unknown) (unknown) 03/17/23 (units unknown) (unknown) (unknown) (no date) (unknown) (unknown) 1 tab PO BID Qty: 0 (units unknown) (unknown) (unknown) (no date) (unknown) (unknown) 1 tab PO BID Q ty: 14 0RF (units unknown) (unknown) (unknown) (no date) (unknown) (unknown) 1 tab PO Q8H P RN (Reason: pain) Qty: 20 0RF (units unknown) (unknown) (unknown) (no date) (unknown) (unknown) 10 mg PO BEDTIME (un its unknown) (unknown) (unknown) (no date) (unknown) (unknown) 10 mg PO Q6H P RN (Reason: nausea and vomiting) Qty: 10 0RF (units unknown) (unknown) (unknown) (no date) (unknown) (unknown) 10 mg PO QDAY Qty: 30 6RF (units unknown) (unknown) (unknown) (no date) (unknown) (unknown) 10 mg PO TID P RN (Reason: pain) Qty: 14 0RF (units unknown) (unknown) (unknown) (no date) (unknown) (unknown) 10 mg PO TID (units unknown) (unknown) (unknown) (no date) (unknown) (unknown) 10-30mg PO bedtime; (units unknown) (unknown) (unknown) (no date) (unknown) (unknown) 100 mg PO BID Qty: 60 6RF (units unknown) (unknown) (unknown) (no date) (unknown) (unknown) 2 inh INH BID Qty: 1 12RF (units unknown) (unknown) (unknown) (no date) (unknown) (unknown) 20 mg PO DAILY Qty: 30 0RF (units unknown) (unknown) (unknown) (no date) (unknown) (unknown) 4 tabs/day (24hr) PO (units unknown) (unknown) (unknown) (no date) (unknown) (unknown) 40 mg PO BEDTIME (un its unknown) (unknown) (unknown) (no date) (unknown) (unknown) 500 mg PO QID Qty: 40 0RF (units unknown) (unknown) (unknown) (no date) (unknown) (unknown) 800 mg PO TID Qty: 270 3RF (units unknown) (unknown) (unknown) (no date) (unknown) (unknown) 800 mg PO TID Qty: 30 0RF (units unknown) (unknown) (unknown) (no date) (unknown) (unknown) ALMOST (units unknown) (unknown) (unknown) (no date) (unknown) (unknown) Activity Restrictions/Addition al Instructions: (units unknown) (unknown) (unknown) (no date) (unknown) (unknown) After history and exam dental ball/GI cocktail, hydrocodone, Augmentin (units unknown) (unknown) (unknown) (no date) (unknown) (unknown) Age/Sex: 32 / F (uni ts unknown) (unknown) (unknown) (no date) (unknown) (unknown) Al Hydrox/Mg Hydrox/Simethicone 20 ml/ Lidocaine HCl 15 ml 0 ml PO NOW ONE (units unknown) (unknown) (unknown) (no date) (unknown) (unknown) Allergies (units unknown) (unknown) (unknown) (no date) (unknown) (unknown) Allergy/AdvRea c Type Severity Reaction Status Date / Time (units unknown) (unknown) (unknown) (no date) (unknown) (unknown) Amoxicillin/Cl avulana te Potassium (Amoxicillin/Clav 875/125 Mg) 1 tab PO NOW (units unknown) (unknown) (unknown) (no date) (unknown) (unknown) BAD RASH' (units unknown) (unknown) (unknown) (no date) (unknown) (unknown) Blood Pressure 129/78 03/17/23 02:52 (units unknown) (unknown) (unknown) (no date) (unknown) (unknown) Blood Pressure 129/7 8 (units unknown) (unknown) (unknown) (no date) (unknown) (unknown) CARDIOVASCULAR : negative chest pain, palpitations (units unknown) (unknown) (unknown) (no date) (unknown) (unknown) CC: Tooth pain (unit s unknown) (unknown) (unknown) (no date) (unknown) (unknown) Chief Complain t: Neck Pain/Injury (units unknown) (unknown) (unknown) (no date) (unknown) (unknown) Clinical Impression: (units unknown) (unknown) (unknown) (no date) (unknown) (unknown) Complicating co-morbidities: Chronic tooth pain (units unknown) (unknown) (unknown) (no date) (unknown) (unknown) Controlled typ e 2 diabetes mellitus without complication, without long-term (units unknown) (unknown) (unknown) (no date) (unknown) (unknown) Course (units unknown) (unknown) (unknown) (no date) (unknown) (unknown) : 1 Acct:[id number] (units unknown) (unknown) (unknown) (no date) (unknown) (unknown) Data collected from: Patient and mother (units unknown) (unknown) (unknown) (no date) (unknown) (unknown) Date of Servic e: 03/17/23 (units unknown) (unknown) (unknown) (no date) (unknown) (unknown) Dental ball wa s removed prior to discharge. Mother is driving. Return (units unknown) (unknown) (unknown) (no date) (unknown) (unknown) Dental caries (units unknown) (unknown) (unknown) (no date) (unknown) (unknown) Departure (units unknown) (unknown) (unknown) (no date) (unknown) (unknown) Diagnosis: [place] caries/fracture/Decay (units unknown) (unknown) (unknown) (no date) (unknown) (unknown) Differential considered: Includes but not limited to dental caries dental (units unknown) (unknown) (unknown) (no date) (unknown) (unknown) Discharge Plan (unit s unknown) (unknown) (unknown) (no date) (unknown) (unknown) Discontinued Medications (units unknown) (unknown) (unknown) (no date) (unknown) (unknown) Discussion: Appropriate for discharge home. Tooth decay and pain is chronic. (units unknown) (unknown) (unknown) (no date) (unknown) (unknown) Dose Instruction: (u nits unknown) (unknown) (unknown) (no date) (unknown) (unknown) ENT: Mucous me mbranes moist. There is significant tooth decay at 13. No (units unknown) (unknown) (unknown) (no date) (unknown) (unknown) ER Physician: Jackson Maldonado MD (units unknown) (unknown) (unknown) (no date) (unknown) (unknown) EVERYTHING (units unknown) (unknown) (unknown) (no date) (unknown) (unknown) EYES: Pupils e qual round (units unknown) (unknown) (unknown) (no date) (unknown) (unknown) Emergency Report (un its unknown) (unknown) (unknown) (no date) (unknown) (unknown) Exam Narrative: (uni ts unknown) (unknown) (unknown) (no date) (unknown) (unknown) Exam documente d above, pertinent findings include: Significant tooth decay to (units unknown) (unknown) (unknown) (no date) (unknown) (unknown) Exam (units unknown) (unknown) (unknown) (no date) (unknown) (unknown) Family History (units unknown) (unknown) (unknown) (no date) (unknown) (unknown) GASTROINTESTIN AL: negative nausea, vomiting, abdominal pain (units unknown) (unknown) (unknown) (no date) (unknown) (unknown) GENERAL: in no distress, not toxic not dyspneic (units unknown) (unknown) (unknown) (no date) (unknown) (unknown) GENERAL: negat bryce chills, fatigue, malaise, fever, sweats. (units unknown) (unknown) (unknown) (no date) (unknown) (unknown) : negative d ysuria, frequency, hematuria (units unknown) (unknown) (unknown) (no date) (unknown) (unknown) General (units unknown) (unknown) (unknown) (no date) (unknown) (unknown) HEAD: Normocephalic. (units unknown) (unknown) (unknown) (no date) (unknown) (unknown) HEENT: negativ e sinus pain, ear pain, sore throat, positive toothache (units unknown) (unknown) (unknown) (no date) (unknown) (unknown) HPI - Neck Pain/Injury (units unknown) (unknown) (unknown) (no date) (unknown) (unknown) HPI Narrative: (unit s unknown) (unknown) (unknown) (no date) (unknown) (unknown) History of Pre sent Illness (units unknown) (unknown) (unknown) (no date) (unknown) (unknown) Home Medications (un its unknown) (unknown) (unknown) (no date) (unknown) (unknown) However antibi otic started as prophylactically as pain worsened tonight and february (units unknown) (unknown) (unknown) (no date) (unknown) (unknown) Denis Ferrer DO, MS [Primary Care Provider] (units unknown) (unknown) (unknown) (no date) (unknown) (unknown) Hydrocodone Bitart/Acetaminophen (Hydrocodone/Acet 5/325 Tablet) 2 tab PO NOW (units unknown) (unknown) (unknown) (no date) (unknown) (unknown) Hypothyroidism , unspecified type (units unknown) (unknown) (unknown) (no date) (unknown) (unknown) Initial Vital Signs (units unknown) (unknown) (unknown) (no date) (unknown) (unknown) Initial Vital Signs: (units unknown) (unknown) (unknown) (no date) (unknown) (unknown) Instructions: DI for Tooth Decay (units unknown) (unknown) (unknown) (no date) (unknown) (unknown) [address] [address] (units unknown) (unknown) (unknown) (no date) (unknown) (unknown) KILLED ME' (units unknown) (unknown) (unknown) (no date) (unknown) (unknown) MDM - Neck Pain/Injury (units unknown) (unknown) (unknown) (no date) (unknown) (unknown) MDM Narrative (units unknown) (unknown) (unknown) (no date) (unknown) (unknown) MDM (units unknown) (unknown) (unknown) (no date) (unknown) (unknown) MUSCULOSKELETA L: negative muscle or bony pain (units unknown) (unknown) (unknown) (no date) (unknown) (unknown) Medical decisi on making narrative: (units unknown) (unknown) (unknown) (no date) (unknown) (unknown) Medical record s reviewed: No recent visits for this complaint at this facility (units unknown) (unknown) (unknown) (no date) (unknown) (unknown) Medication Instructions Recorded Confirmed (units unknown) (unknown) (unknown) (no date) (unknown) (unknown) Medication Instructions Recorded (units unknown) (unknown) (unknown) (no date) (unknown) (unknown) Mode of arriva l: Ambulatory (units unknown) (unknown) (unknown) (no date) (unknown) (unknown) 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 (units unknown) (unknown) (unknown) (no date) (unknown) (unknown) NEURO: AOx4. (units unknown) (unknown) (unknown) (no date) (unknown) (unknown) NEUROLOGIC: ne gative weakness, numbness (units unknown) (unknown) (unknown) (no date) (unknown) (unknown) Narrative (units unknown) (unknown) (unknown) (no date) (unknown) (unknown) Narrative: (units unknown) (unknown) (unknown) (no date) (unknown) (unknown) New (units unknown) (unknown) (unknown) (no date) (unknown) (unknown) No Action (units unknown) (unknown) (unknown) (no date) (unknown) (unknown) No blood work or imaging indicated at this time. Not toxic no fever (units unknown) (unknown) (unknown) (no date) (unknown) (unknown) ONE (units unknown) (unknown) (unknown) (no date) (unknown) (unknown) Ordered: (units unknown) (unknown) (unknown) (no date) (unknown) (unknown) Orders (units unknown) (unknown) (unknown) (no date) (unknown) (unknown) Oxygen Deliver y Method Room Air 03/17/23 02:52 (units unknown) (unknown) (unknown) (no date) (unknown) (unknown) Oxygen Deliver y Method Room Air (units unknown) (unknown) (unknown) (no date) (unknown) (unknown) PSYCH: Not anx ious, is cooperative (units unknown) (unknown) (unknown) (no date) (unknown) (unknown) PT NEEDS TO ES T. CARE W/NEW PCP PRIOR TO ANY FUTURE FILLS. PLEASE CALL TO (units unknown) (unknown) (unknown) (no date) (unknown) (unknown) Patient Dispos ition: Home (units unknown) (unknown) (unknown) (no date) (unknown) (unknown) Patient History (uni ts unknown) (unknown) (unknown) (no date) (unknown) (unknown) Patient sigifredo t here by mother for complaints of tooth pain that has been (units unknown) (unknown) (unknown) (no date) (unknown) (unknown) Patient states she is not allergic to hydrocodone. She is had this before (units unknown) (unknown) (unknown) (no date) (unknown) (unknown) Patient: Janeth Almendarez MR#: M (units unknown) (unknown) (unknown) (no date) (unknown) (unknown) Please call [facility] as plan to try to move up your dental (units unknown) (unknown) (unknown) (no date) (unknown) (unknown) Prescriptions: (unit s unknown) (unknown) (unknown) (no date) (unknown) (unknown) Previous Rx's (units unknown) (unknown) (unknown) (no date) (unknown) (unknown) Pulse Oximetry 98 03/17/23 02:52 (units unknown) (unknown) (unknown) (no date) (unknown) (unknown) Pulse Oximetry 98 (u nits unknown) (unknown) (unknown) (no date) (unknown) (unknown) Pulse Rate 116 H 03/17/23 02:52 (units unknown) (unknown) (unknown) (no date) (unknown) (unknown) Pulse Rate 116 H (un its unknown) (unknown) (unknown) (no date) (unknown) (unknown) RESPIRATORY: n egative dyspnea, cough (units unknown) (unknown) (unknown) (no date) (unknown) (unknown) ROS Unobtainab le: All systems reviewed + are unremarkable except as noted in HPI (units unknown) (unknown) (unknown) (no date) (unknown) (unknown) Re-evaluations : Reviewed findings with patient and she agrees with pain (units unknown) (unknown) (unknown) (no date) (unknown) (unknown) Referrals: (units unknown) (unknown) (unknown) (no date) (unknown) (unknown) Related Data (units unknown) (unknown) (unknown) (no date) (unknown) (unknown) Respiratory Ra te 18 03/17/23 02:52 (units unknown) (unknown) (unknown) (no date) (unknown) (unknown) Respiratory Rate 18 (units unknown) (unknown) (unknown) (no date) (unknown) (unknown) Review of Systems (u nits unknown) (unknown) (unknown) (no date) (unknown) (unknown) Rx Instructions: (un its unknown) (unknown) (unknown) (no date) (unknown) (unknown) SCHED. APPT 04/08/20 ( units unknown) (unknown) (unknown) (no date) (unknown) (unknown) SKIN: Warm and dry ( units unknown) (unknown) (unknown) (no date) (unknown) (unknown) SKIN: negative rash, skin lesions (units unknown) (unknown) (unknown) (no date) (unknown) (unknown) See Rx Instruc tions PO .COMPLEX Qty: 9 6RF (units unknown) (unknown) (unknown) (no date) (unknown) (unknown) See Rx Instruc tions PO BEDTIME Qty: 90 3RF (units unknown) (unknown) (unknown) (no date) (unknown) (unknown) Signed By: (units unknown) (unknown) (unknown) (no date) (unknown) (unknown) Smoking Status : Never smoker (units unknown) (unknown) (unknown) (no date) (unknown) (unknown) Social History (units unknown) (unknown) (unknown) (no date) (unknown) (unknown) Stand Alone Fo edy: Patient Portal/API (units unknown) (unknown) (unknown) (no date) (unknown) (unknown) Stated Complai nt: infected tooth tried removing it now hurts (units unknown) (unknown) (unknown) (no date) (unknown) (unknown) Status post appendectomy (units unknown) (unknown) (unknown) (no date) (unknown) (unknown) Stop: 03/17/23 03:01 (units unknown) (unknown) (unknown) (no date) (unknown) (unknown) Substance Use Type: marijuana (units unknown) (unknown) (unknown) (no date) (unknown) (unknown) Surgical Histo ry (units unknown) (unknown) (unknown) (no date) (unknown) (unknown) Temperature 98 .7 F 03/17/23 02:52 (units unknown) (unknown) (unknown) (no date) (unknown) (unknown) Temperature 98.7 F ( units unknown) (unknown) (unknown) (no date) (unknown) (unknown) Time Seen by Provider: 03/17/23 02:59 (units unknown) (unknown) (unknown) (no date) (unknown) (unknown) Treatments: Au gmentin hydrocodone dental ball (units unknown) (unknown) (unknown) (no date) (unknown) (unknown) VOMITING (units unknown) (unknown) (unknown) (no date) (unknown) (unknown) Vital Signs - 8 hr ( units unknown) (unknown) (unknown) (no date) (unknown) (unknown) Vital Signs (units unknown) (unknown) (unknown) (no date) (unknown) (unknown) Vital signs: (units unknown) (unknown) (unknown) (no date) (unknown) (unknown) WORSE' (units unknown) (unknown) (unknown) (no date) (unknown) (unknown) [From [facility]] (unit s unknown) (unknown) (unknown) (no date) (unknown) (unknown) [ ADAM MIN] 1 tab PO BID ##0 10/06/17 04/23/20 (units unknown) (unknown) (unknown) (no date) (unknown) (unknown) [ VITAMIN] ( units unknown) (unknown) (unknown) (no date) (unknown) (unknown) alcohol intake frequency: holidays/special occasions only (units unknown) (unknown) (unknown) (no date) (unknown) (unknown) alcohol intake: beltrane r (units unknown) (unknown) (unknown) (no date) (unknown) (unknown) amitriptyline 10 mg tablet See Rx Instructions PO BEDTIME #90 08/15/19 (units unknown) (unknown) (unknown) (no date) (unknown) (unknown) amitriptyline 10 mg tablet (units unknown) (unknown) (unknown) (no date) (unknown) (unknown) amoxicillin 87 5 mg-potassium 1 tab PO BID #14 tabs 03/17/23 (units unknown) (unknown) (unknown) (no date) (unknown) (unknown) amoxicillin-po t clavulanate 875-125 mg tablet (units unknown) (unknown) (unknown) (no date) (unknown) (unknown) and below (units unknown) (unknown) (unknown) (no date) (unknown) (unknown) appointment fr om May. No driving operating machinery today or when taking (units unknown) (unknown) (unknown) (no date) (unknown) (unknown) but unable to have tooth extraction until May of the summer. Could not sleep (units unknown) (unknown) (unknown) (no date) (unknown) (unknown) cephalexin 500 mg capsule 500 mg PO QID #40 caps 04/10/20 (units unknown) (unknown) (unknown) (no date) (unknown) (unknown) cephalexin 500 mg capsule (units unknown) (unknown) (unknown) (no date) (unknown) (unknown) clavulanate 12 5 mg tablet (units unknown) (unknown) (unknown) (no date) (unknown) (unknown) current use of insulin (units unknown) (unknown) (unknown) (no date) (unknown) (unknown) cyclobenzaprin e 10 mg tablet 10 mg PO TID 03/27/19 04/23/20 (units unknown) (unknown) (unknown) (no date) (unknown) (unknown) cyclobenzaprin e 10 mg tablet (units unknown) (unknown) (unknown) (no date) (unknown) (unknown) duloxetine 20 mg capsule,delayed 40 mg PO BEDTIME 03/27/19 04/23/20 (units unknown) (unknown) (unknown) (no date) (unknown) (unknown) duloxetine 20 mg capsule,delayed release(DR/EC) (units unknown) (unknown) (unknown) (no date) (unknown) (unknown) fracture denta l abscess (units unknown) (unknown) (unknown) (no date) (unknown) (unknown) gabapentin 800 mg tablet 800 mg PO TID #270 tabs 05/20/21 (units unknown) (unknown) (unknown) (no date) (unknown) (unknown) gabapentin [Neurontin] 800 mg tablet (units unknown) (unknown) (unknown) (no date) (unknown) (unknown) home prepack o f hydrocodone (units unknown) (unknown) (unknown) (no date) (unknown) (unknown) hydrocodone 5 mg-acetaminophen 325 1 tab PO Q8H PRN pain #20 tabs 04/23/20 (units unknown) (unknown) (unknown) (no date) (unknown) (unknown) hydrocodone-ac etamino phen 5-325 mg tablet (units unknown) (unknown) (unknown) (no date) (unknown) (unknown) ibuprofen 800 mg tablet 800 mg PO TID #30 tabs 04/23/20 (units unknown) (unknown) (unknown) (no date) (unknown) (unknown) ibuprofen 800 mg tablet (units unknown) (unknown) (unknown) (no date) (unknown) (unknown) if worse or fo r any questions or concerns (units unknown) (unknown) (unknown) (no date) (unknown) (unknown) inhaler (Dulera) (un its unknown) (unknown) (unknown) (no date) (unknown) (unknown) ketorolac 10 m g tablet 10 mg PO TID PRN pain #14 tabs 08/18/20 (units unknown) (unknown) (unknown) (no date) (unknown) (unknown) ketorolac 10 m g tablet (units unknown) (unknown) (unknown) (no date) (unknown) (unknown) latex Allergy Intermediate Rash Verified 12/15/22 20:12 (units unknown) (unknown) (unknown) (no date) (unknown) (unknown) loratadine 10 mg tablet 10 mg PO QDAY #30 tabs 11/11/20 (units unknown) (unknown) (unknown) (no date) (unknown) (unknown) loratadine 10 mg tablet (units unknown) (unknown) (unknown) (no date) (unknown) (unknown) mcg-5 mcg/actu ation aerosol (units unknown) (unknown) (unknown) (no date) (unknown) (unknown) medication ton ight and starting prophylactic antibiotic. (units unknown) (unknown) (unknown) (no date) (unknown) (unknown) melatonin 10 m g tablet 10 mg PO BEDTIME 03/27/19 04/23/20 (units unknown) (unknown) (unknown) (no date) (unknown) (unknown) melatonin 10 m g tablet (units unknown) (unknown) (unknown) (no date) (unknown) (unknown) metoclopramide HCl 10 mg tablet 10 mg PO Q6H PRN nausea and 07/11/21 (units unknown) (unknown) (unknown) (no date) (unknown) (unknown) metoclopramide HCl [Reglan] 10 mg tablet (units unknown) (unknown) (unknown) (no date) (unknown) (unknown) mg tablet (units unknown) (unknown) (unknown) (no date) (unknown) (unknown) mometasone-for moterol HFA 100 2 inh INH BID #1 inh 01/16/18 (units unknown) (unknown) (unknown) (no date) (unknown) (unknown) mometasone-for moterol [Dulera] 100 MCG/5 MCG HFA aerosol inhaler (units unknown) (unknown) (unknown) (no date) (unknown) (unknown) montelukast 10 mg tablet 10 mg PO QDAY #30 tabs 10/03/19 (units unknown) (unknown) (unknown) (no date) (unknown) (unknown) montelukast 10 mg tablet (units unknown) (unknown) (unknown) (no date) (unknown) (unknown) months. No fev er chills. No facial swelling. Patient went to see her dentist (units unknown) (unknown) (unknown) (no date) (unknown) (unknown) morphine [MORP LENORE] Allergy Severe N+V Verified 12/15/22 20:11 (units unknown) (unknown) (unknown) (no date) (unknown) (unknown) nasolabial fol d. No erythema. No trismus no malocclusion no tongue elevation (units unknown) (unknown) (unknown) (no date) (unknown) (unknown) no drooling. (units unknown) (unknown) (unknown) (no date) (unknown) (unknown) omeprazole 20 mg capsule,delayed 20 mg PO DAILY #30 caps 04/08/20 (units unknown) (unknown) (unknown) (no date) (unknown) (unknown) omeprazole 20 mg capsule,delayed release(DR/EC) (units unknown) (unknown) (unknown) (no date) (unknown) (unknown) ondansetron [ONDANSETRON] AdvReac Intermediate 'MADE MY Verified 12/15/22 20:11 (units unknown) (unknown) (unknown) (no date) (unknown) (unknown) ongoing for ma ny months. Has been slowly decaying and crumbling for many (units unknown) (unknown) (unknown) (no date) (unknown) (unknown) paroxetine [Fr om PAXIL] Allergy Intermediate SAW 3 OF Verified 12/15/22 20:11 (units unknown) (unknown) (unknown) (no date) (unknown) (unknown) precautions re viewed with them. They desire discharge home. Patient was sent (units unknown) (unknown) (unknown) (no date) (unknown) (unknown) prescribed omaira n medication. Please continue full course of antibiotics. Return (units unknown) (unknown) (unknown) (no date) (unknown) (unknown) pseudoephedrin e AdvReac Severe MIGRAINES Verified 12/15/22 20:11 (units unknown) (unknown) (unknown) (no date) (unknown) (unknown) release (units unknown) (unknown) (unknown) (no date) (unknown) (unknown) second hand ex posure: No (units unknown) (unknown) (unknown) (no date) (unknown) (unknown) sertraline [SERTRALINE] AdvReac Mild felt like Verified 12/15/22 20:11 (units unknown) (unknown) (unknown) (no date) (unknown) (unknown) she was (units unknown) (unknown) (unknown) (no date) (unknown) (unknown) start infectio n. Patient has had hydrocodone in the past without difficulty. (units unknown) (unknown) (unknown) (no date) (unknown) (unknown) substance use type: does not use (units unknown) (unknown) (unknown) (no date) (unknown) (unknown) sumatriptan zarate ccinate 25 mg tablet See Rx Instructions PO .COMPLEX #9 10/03/19 (units unknown) (unknown) (unknown) (no date) (unknown) (unknown) sumatriptan zarate ccinate 25 mg tablet (units unknown) (unknown) (unknown) (no date) (unknown) (unknown) surrounding pa lpable abscess. No facial or cheek swelling. No loss of (units unknown) (unknown) (unknown) (no date) (unknown) (unknown) tabs (units unknown) (unknown) (unknown) (no date) (unknown) (unknown) take 1 tab at onset of headache; if no relief may repeat 1 tab in 2hr; max = (units unknown) (unknown) (unknown) (no date) (unknown) (unknown) the left upper tooth/maxillary area. Tooth 13. (units unknown) (unknown) (unknown) (no date) (unknown) (unknown) tonight due to pain. It radiates upwards. No fever chills. Tooth pain is in (units unknown) (unknown) (unknown) (no date) (unknown) (unknown) tooth 13. (units unknown) (unknown) (unknown) (no date) (unknown) (unknown) topiramate 100 mg tablet (Topamax) 100 mg PO BID #60 tabs 03/22/19 (units unknown) (unknown) (unknown) (no date) (unknown) (unknown) topiramate [To pamax] 100 mg tablet (units unknown) (unknown) (unknown) (no date) (unknown) (unknown) vinyl gloves A llergy Severe 'REALLY Uncoded 06/27/21 17:12 (units unknown) (unknown) (unknown) (no date) (unknown) (unknown) without any si de effects or allergic reaction. (units unknown) (unknown) Result panel 3 (unknown) (no date) (unknown) (unknown) (no value) (units unknown) (unknown) (unknown) (no date) (unknown) (unknown) <Electronicall y signed by Jackson Maldonado MD> (units unknown) (unknown) (unknown) (no date) (unknown) (unknown) 'MORPHINE (units unknown) (unknown) (unknown) (no date) (unknown) (unknown) 'on clouds' (units unknown) (unknown) (unknown) (no date) (unknown) (unknown) (Neurontin) (units unknown) (unknown) (unknown) (no date) (unknown) (unknown) (Reglan) vomit ing #10 tabs (units unknown) (unknown) (unknown) (no date) (unknown) (unknown) [id number] (units unknown) (unknown) (unknown) (no date) (unknown) (unknown) 02:52 (units unknown) (unknown) (unknown) (no date) (unknown) (unknown) 03/17/23 0559 (units unknown) (unknown) (unknown) (no date) (unknown) (unknown) 03/17/23 (units unknown) (unknown) (unknown) (no date) (unknown) (unknown) 1 tab PO BID Qty: 0 (units unknown) (unknown) (unknown) (no date) (unknown) (unknown) 1 tab PO BID Q ty: 14 0RF (units unknown) (unknown) (unknown) (no date) (unknown) (unknown) 1 tab PO Q8H P RN (Reason: pain) Qty: 20 0RF (units unknown) (unknown) (unknown) (no date) (unknown) (unknown) 10 mg PO BEDTIME (un its unknown) (unknown) (unknown) (no date) (unknown) (unknown) 10 mg PO Q6H P RN (Reason: nausea and vomiting) Qty: 10 0RF (units unknown) (unknown) (unknown) (no date) (unknown) (unknown) 10 mg PO QDAY Qty: 30 6RF (units unknown) (unknown) (unknown) (no date) (unknown) (unknown) 10 mg PO TID P RN (Reason: pain) Qty: 14 0RF (units unknown) (unknown) (unknown) (no date) (unknown) (unknown) 10 mg PO TID (units unknown) (unknown) (unknown) (no date) (unknown) (unknown) 10-30mg PO bedtime; (units unknown) (unknown) (unknown) (no date) (unknown) (unknown) 100 mg PO BID Qty: 60 6RF (units unknown) (unknown) (unknown) (no date) (unknown) (unknown) 2 inh INH BID Qty: 1 12RF (units unknown) (unknown) (unknown) (no date) (unknown) (unknown) 20 mg PO DAILY Qty: 30 0RF (units unknown) (unknown) (unknown) (no date) (unknown) (unknown) 4 tabs/day (24hr) PO (units unknown) (unknown) (unknown) (no date) (unknown) (unknown) 40 mg PO BEDTIME (un its unknown) (unknown) (unknown) (no date) (unknown) (unknown) 500 mg PO QID Qty: 40 0RF (units unknown) (unknown) (unknown) (no date) (unknown) (unknown) 800 mg PO TID Qty: 270 3RF (units unknown) (unknown) (unknown) (no date) (unknown) (unknown) 800 mg PO TID Qty: 30 0RF (units unknown) (unknown) (unknown) (no date) (unknown) (unknown) ALMOST (units unknown) (unknown) (unknown) (no date) (unknown) (unknown) Activity Restrictions/Addition al Instructions: (units unknown) (unknown) (unknown) (no date) (unknown) (unknown) After history and exam dental ball/GI cocktail, hydrocodone, Augmentin (units unknown) (unknown) (unknown) (no date) (unknown) (unknown) Age/Sex: 32 / F (uni ts unknown) (unknown) (unknown) (no date) (unknown) (unknown) Al Hydrox/Mg Hydrox/Simethicone 20 ml/ Lidocaine HCl 15 ml 0 ml PO NOW ONE (units unknown) (unknown) (unknown) (no date) (unknown) (unknown) Allergies (units unknown) (unknown) (unknown) (no date) (unknown) (unknown) Allergy/AdvRea c Type Severity Reaction Status Date / Time (units unknown) (unknown) (unknown) (no date) (unknown) (unknown) Amoxicillin/Cl avulana te Potassium (Amoxicillin/Clav 875/125 Mg) 1 tab PO NOW (units unknown) (unknown) (unknown) (no date) (unknown) (unknown) BAD RASH' (units unknown) (unknown) (unknown) (no date) (unknown) (unknown) Blood Pressure 129/78 03/17/23 02:52 (units unknown) (unknown) (unknown) (no date) (unknown) (unknown) Blood Pressure 129/7 8 (units unknown) (unknown) (unknown) (no date) (unknown) (unknown) CARDIOVASCULAR : negative chest pain, palpitations (units unknown) (unknown) (unknown) (no date) (unknown) (unknown) CC: Tooth pain (unit s unknown) (unknown) (unknown) (no date) (unknown) (unknown) Chief Complain t: Neck Pain/Injury (units unknown) (unknown) (unknown) (no date) (unknown) (unknown) Clinical Impression: (units unknown) (unknown) (unknown) (no date) (unknown) (unknown) Complicating co-morbidities: Chronic tooth pain (units unknown) (unknown) (unknown) (no date) (unknown) (unknown) Controlled typ e 2 diabetes mellitus without complication, without long-term (units unknown) (unknown) (unknown) (no date) (unknown) (unknown) Course (units unknown) (unknown) (unknown) (no date) (unknown) (unknown) : 1 Acct:[id number] (units unknown) (unknown) (unknown) (no date) (unknown) (unknown) Data collected from: Patient and mother (units unknown) (unknown) (unknown) (no date) (unknown) (unknown) Date of Servic e: 03/17/23 (units unknown) (unknown) (unknown) (no date) (unknown) (unknown) Dental ball wa s removed prior to discharge. Mother is driving. Return (units unknown) (unknown) (unknown) (no date) (unknown) (unknown) Dental caries (units unknown) (unknown) (unknown) (no date) (unknown) (unknown) Departure (units unknown) (unknown) (unknown) (no date) (unknown) (unknown) Diagnosis: [place] caries/fracture/Decay (units unknown) (unknown) (unknown) (no date) (unknown) (unknown) Differential considered: Includes but not limited to dental caries dental (units unknown) (unknown) (unknown) (no date) (unknown) (unknown) Discharge Plan (unit s unknown) (unknown) (unknown) (no date) (unknown) (unknown) Discontinued Medications (units unknown) (unknown) (unknown) (no date) (unknown) (unknown) Discussion: Appropriate for discharge home. Tooth decay and pain is chronic. (units unknown) (unknown) (unknown) (no date) (unknown) (unknown) Documented By: ROD (u nits unknown) (unknown) (unknown) (no date) (unknown) (unknown) Dose Instruction: (u nits unknown) (unknown) (unknown) (no date) (unknown) (unknown) ENT: Mucous me mbranes moist. There is significant tooth decay at 13. No (units unknown) (unknown) (unknown) (no date) (unknown) (unknown) ER Physician: Jackson Maldonado MD (units unknown) (unknown) (unknown) (no date) (unknown) (unknown) EVERYTHING (units unknown) (unknown) (unknown) (no date) (unknown) (unknown) EYES: Pupils e qual round (units unknown) (unknown) (unknown) (no date) (unknown) (unknown) Emergency Report (un its unknown) (unknown) (unknown) (no date) (unknown) (unknown) Exam Narrative: (uni ts unknown) (unknown) (unknown) (no date) (unknown) (unknown) Exam documente d above, pertinent findings include: Significant tooth decay to (units unknown) (unknown) (unknown) (no date) (unknown) (unknown) Exam (units unknown) (unknown) (unknown) (no date) (unknown) (unknown) Family History (units unknown) (unknown) (unknown) (no date) (unknown) (unknown) GASTROINTESTIN AL: negative nausea, vomiting, abdominal pain (units unknown) (unknown) (unknown) (no date) (unknown) (unknown) GENERAL: in no distress, not toxic not dyspneic (units unknown) (unknown) (unknown) (no date) (unknown) (unknown) GENERAL: negat bryce chills, fatigue, malaise, fever, sweats. (units unknown) (unknown) (unknown) (no date) (unknown) (unknown) : negative d ysuria, frequency, hematuria (units unknown) (unknown) (unknown) (no date) (unknown) (unknown) General (units unknown) (unknown) (unknown) (no date) (unknown) (unknown) HEAD: Normocephalic. (units unknown) (unknown) (unknown) (no date) (unknown) (unknown) HEENT: negativ e sinus pain, ear pain, sore throat, positive toothache (units unknown) (unknown) (unknown) (no date) (unknown) (unknown) HPI - Neck Pain/Injury (units unknown) (unknown) (unknown) (no date) (unknown) (unknown) HPI Narrative: (unit s unknown) (unknown) (unknown) (no date) (unknown) (unknown) History of Pre sent Illness (units unknown) (unknown) (unknown) (no date) (unknown) (unknown) Home Medications (un its unknown) (unknown) (unknown) (no date) (unknown) (unknown) However antibi otic started as prophylactically as pain worsened tonight and february (units unknown) (unknown) (unknown) (no date) (unknown) (unknown) Denis Ferrer , , MS [Primary Care Provider] (units unknown) (unknown) (unknown) (no date) (unknown) (unknown) Hydrocodone Bitart/Acetaminophen (Hydrocodone/Acet 5/325 Prepack) 1 bottle MISC (units unknown) (unknown) (unknown) (no date) (unknown) (unknown) Hydrocodone Bitart/Acetaminophen (Hydrocodone/Acet 5/325 Tablet) 2 tab PO NOW (units unknown) (unknown) (unknown) (no date) (unknown) (unknown) Hypothyroidism , unspecified type (units unknown) (unknown) (unknown) (no date) (unknown) (unknown) Initial Vital Signs (units unknown) (unknown) (unknown) (no date) (unknown) (unknown) Initial Vital Signs: (units unknown) (unknown) (unknown) (no date) (unknown) (unknown) Instructions: DI for Tooth Decay (units unknown) (unknown) (unknown) (no date) (unknown) (unknown) [address] [address] (units unknown) (unknown) (unknown) (no date) (unknown) (unknown) KILLED ME' (units unknown) (unknown) (unknown) (no date) (unknown) (unknown) Last Admin: 03:09 Dose: 1 tab (units unknown) (unknown) (unknown) (no date) (unknown) (unknown) Last Admin: 03:09 Dose: 2 tab (units unknown) (unknown) (unknown) (no date) (unknown) (unknown) Last Admin: 03:16 Dose: 1 bottle (units unknown) (unknown) (unknown) (no date) (unknown) (unknown) Last Admin: 03:16 Dose: 20 ml (units unknown) (unknown) (unknown) (no date) (unknown) (unknown) MDM - Neck Pain/Injury (units unknown) (unknown) (unknown) (no date) (unknown) (unknown) MDM Narrative (units unknown) (unknown) (unknown) (no date) (unknown) (unknown) MDM (units unknown) (unknown) (unknown) (no date) (unknown) (unknown) MUSCULOSKELETA L: negative muscle or bony pain (units unknown) (unknown) (unknown) (no date) (unknown) (unknown) Medical decisi on making narrative: (units unknown) (unknown) (unknown) (no date) (unknown) (unknown) Medical record s reviewed: No recent visits for this complaint at this facility (units unknown) (unknown) (unknown) (no date) (unknown) (unknown) Medication Instructions Recorded Confirmed (units unknown) (unknown) (unknown) (no date) (unknown) (unknown) Medication Instructions Recorded (units unknown) (unknown) (unknown) (no date) (unknown) (unknown) Mode of arriva l: Ambulatory (units unknown) (unknown) (unknown) (no date) (unknown) (unknown) Mother Degener ative joint disease of low back (units unknown) (unknown) (unknown) (no date) (unknown) (unknown) NAUSEA AND (units unknown) (unknown) (unknown) (no date) (unknown) (unknown) NECK: Trachea midline. (units unknown) (unknown) (unknown) (no date) (unknown) (unknown) NEURO: AOx4. (units unknown) (unknown) (unknown) (no date) (unknown) (unknown) NEUROLOGIC: ne gative weakness, numbness (units unknown) (unknown) (unknown) (no date) (unknown) (unknown) Narrative (units unknown) (unknown) (unknown) (no date) (unknown) (unknown) Narrative: (units unknown) (unknown) (unknown) (no date) (unknown) (unknown) New (units unknown) (unknown) (unknown) (no date) (unknown) (unknown) No Action (units unknown) (unknown) (unknown) (no date) (unknown) (unknown) No blood work or imaging indicated at this time. Not toxic no fever (units unknown) (unknown) (unknown) (no date) (unknown) (unknown) ONE (units unknown) (unknown) (unknown) (no date) (unknown) (unknown) Ordered: (units unknown) (unknown) (unknown) (no date) (unknown) (unknown) Orders (units unknown) (unknown) (unknown) (no date) (unknown) (unknown) Oxygen Deliver y Method Room Air 03/17/23 02:52 (units unknown) (unknown) (unknown) (no date) (unknown) (unknown) Oxygen Deliver y Method Room Air (units unknown) (unknown) (unknown) (no date) (unknown) (unknown) PSYCH: Not anx ious, is cooperative (units unknown) (unknown) (unknown) (no date) (unknown) (unknown) PT NEEDS TO ES T. CARE W/NEW PCP PRIOR TO ANY FUTURE FILLS. PLEASE CALL TO (units unknown) (unknown) (unknown) (no date) (unknown) (unknown) Patient Dispos ition: Home (units unknown) (unknown) (unknown) (no date) (unknown) (unknown) Patient History (uni ts unknown) (unknown) (unknown) (no date) (unknown) (unknown) Patient sigifredo t here by mother for complaints of tooth pain that has been (units unknown) (unknown) (unknown) (no date) (unknown) (unknown) Patient states she is not allergic to hydrocodone. She is had this before (units unknown) (unknown) (unknown) (no date) (unknown) (unknown) Patient: Janeth Almendarez MR#: M (units unknown) (unknown) (unknown) (no date) (unknown) (unknown) Please call yo samm family dentist as plan to try to move up your dental (units unknown) (unknown) (unknown) (no date) (unknown) (unknown) Prescriptions: (unit s unknown) (unknown) (unknown) (no date) (unknown) (unknown) Previous Rx's (units unknown) (unknown) (unknown) (no date) (unknown) (unknown) Pulse Oximetry 98 03/17/23 02:52 (units unknown) (unknown) (unknown) (no date) (unknown) (unknown) Pulse Oximetry 98 (u nits unknown) (unknown) (unknown) (no date) (unknown) (unknown) Pulse Rate 116 H 03/17/23 02:52 (units unknown) (unknown) (unknown) (no date) (unknown) (unknown) Pulse Rate 116 H (un its unknown) (unknown) (unknown) (no date) (unknown) (unknown) RESPIRATORY: n egative dyspnea, cough (units unknown) (unknown) (unknown) (no date) (unknown) (unknown) ROS Unobtainab le: All systems reviewed + are unremarkable except as noted in HPI (units unknown) (unknown) (unknown) (no date) (unknown) (unknown) Re-evaluations : Reviewed findings with patient and she agrees with pain (units unknown) (unknown) (unknown) (no date) (unknown) (unknown) Referrals: (units unknown) (unknown) (unknown) (no date) (unknown) (unknown) Related Data (units unknown) (unknown) (unknown) (no date) (unknown) (unknown) Respiratory Ra te 18 03/17/23 02:52 (units unknown) (unknown) (unknown) (no date) (unknown) (unknown) Respiratory Rate 18 (units unknown) (unknown) (unknown) (no date) (unknown) (unknown) Review of Systems (u nits unknown) (unknown) (unknown) (no date) (unknown) (unknown) Rx Instructions: (un its unknown) (unknown) (unknown) (no date) (unknown) (unknown) SCHED. APPT 04/08/20 ( units unknown) (unknown) (unknown) (no date) (unknown) (unknown) SEEINSTR ONE (units unknown) (unknown) (unknown) (no date) (unknown) (unknown) SKIN: Warm and dry ( units unknown) (unknown) (unknown) (no date) (unknown) (unknown) SKIN: negative rash, skin lesions (units unknown) (unknown) (unknown) (no date) (unknown) (unknown) See Rx Instruc tions PO .COMPLEX Qty: 9 6RF (units unknown) (unknown) (unknown) (no date) (unknown) (unknown) See Rx Instruc tions PO BEDTIME Qty: 90 3RF (units unknown) (unknown) (unknown) (no date) (unknown) (unknown) Signed By: (units unknown) (unknown) (unknown) (no date) (unknown) (unknown) Smoking Status : Never smoker (units unknown) (unknown) (unknown) (no date) (unknown) (unknown) Social History (units unknown) (unknown) (unknown) (no date) (unknown) (unknown) Stand Alone Fo edy: Patient Portal/API (units unknown) (unknown) (unknown) (no date) (unknown) (unknown) Stated Complai nt: infected tooth tried removing it now hurts (units unknown) (unknown) (unknown) (no date) (unknown) (unknown) Status post appendectomy (units unknown) (unknown) (unknown) (no date) (unknown) (unknown) Stop: 03/17/23 03:01 (units unknown) (unknown) (unknown) (no date) (unknown) (unknown) Stop: 03/17/23 03:10 (units unknown) (unknown) (unknown) (no date) (unknown) (unknown) Substance Use Type: marijuana (units unknown) (unknown) (unknown) (no date) (unknown) (unknown) Surgical Histo ry (units unknown) (unknown) (unknown) (no date) (unknown) (unknown) Temperature 98 .7 F 03/17/23 02:52 (units unknown) (unknown) (unknown) (no date) (unknown) (unknown) Temperature 98.7 F ( units unknown) (unknown) (unknown) (no date) (unknown) (unknown) Time Seen by Provider: 03/17/23 02:59 (units unknown) (unknown) (unknown) (no date) (unknown) (unknown) Treatments: Au gmentin hydrocodone dental ball (units unknown) (unknown) (unknown) (no date) (unknown) (unknown) VOMITING (units unknown) (unknown) (unknown) (no date) (unknown) (unknown) Vital Signs - 8 hr ( units unknown) (unknown) (unknown) (no date) (unknown) (unknown) Vital Signs (units unknown) (unknown) (unknown) (no date) (unknown) (unknown) Vital signs: (units unknown) (unknown) (unknown) (no date) (unknown) (unknown) WORSE' (units unknown) (unknown) (unknown) (no date) (unknown) (unknown) [From SUDAFED] (unit s unknown) (unknown) (unknown) (no date) (unknown) (unknown) [ ADAM MIN] 1 tab PO BID ##0 10/06/17 04/23/20 (units unknown) (unknown) (unknown) (no date) (unknown) (unknown) [ VITAMIN] ( units unknown) (unknown) (unknown) (no date) (unknown) (unknown) alcohol intake frequency: holidays/special occasions only (units unknown) (unknown) (unknown) (no date) (unknown) (unknown) alcohol intake: [place] r (units unknown) (unknown) (unknown) (no date) (unknown) (unknown) amitriptyline 10 mg tablet See Rx Instructions PO BEDTIME #90 08/15/19 (units unknown) (unknown) (unknown) (no date) (unknown) (unknown) amitriptyline 10 mg tablet (units unknown) (unknown) (unknown) (no date) (unknown) (unknown) amoxicillin 87 5 mg-potassium 1 tab PO BID #14 tabs 03/17/23 (units unknown) (unknown) (unknown) (no date) (unknown) (unknown) amoxicillin-po t clavulanate 875-125 mg tablet (units unknown) (unknown) (unknown) (no date) (unknown) (unknown) and below (units unknown) (unknown) (unknown) (no date) (unknown) (unknown) appointment fr om May. No driving operating machinery today or when taking (units unknown) (unknown) (unknown) (no date) (unknown) (unknown) but unable to have tooth extraction until May of the summer. Could not sleep (units unknown) (unknown) (unknown) (no date) (unknown) (unknown) cephalexin 500 mg capsule 500 mg PO QID #40 caps 04/10/20 (units unknown) (unknown) (unknown) (no date) (unknown) (unknown) cephalexin 500 mg capsule (units unknown) (unknown) (unknown) (no date) (unknown) (unknown) clavulanate 12 5 mg tablet (units unknown) (unknown) (unknown) (no date) (unknown) (unknown) current use of insulin (units unknown) (unknown) (unknown) (no date) (unknown) (unknown) cyclobenzaprin e 10 mg tablet 10 mg PO TID 03/27/19 04/23/20 (units unknown) (unknown) (unknown) (no date) (unknown) (unknown) cyclobenzaprin e 10 mg tablet (units unknown) (unknown) (unknown) (no date) (unknown) (unknown) duloxetine 20 mg capsule,delayed 40 mg PO BEDTIME 03/27/19 04/23/20 (units unknown) (unknown) (unknown) (no date) (unknown) (unknown) duloxetine 20 mg capsule,delayed release(DR/EC) (units unknown) (unknown) (unknown) (no date) (unknown) (unknown) fracture denta l abscess (units unknown) (unknown) (unknown) (no date) (unknown) (unknown) gabapentin 800 mg tablet 800 mg PO TID #270 tabs 05/20/21 (units unknown) (unknown) (unknown) (no date) (unknown) (unknown) gabapentin [Neurontin] 800 mg tablet (units unknown) (unknown) (unknown) (no date) (unknown) (unknown) home prepack o f hydrocodone (units unknown) (unknown) (unknown) (no date) (unknown) (unknown) hydrocodone 5 mg-acetaminophen 325 1 tab PO Q8H PRN pain #20 tabs 04/23/20 (units unknown) (unknown) (unknown) (no date) (unknown) (unknown) hydrocodone-ac etamino phen 5-325 mg tablet (units unknown) (unknown) (unknown) (no date) (unknown) (unknown) ibuprofen 800 mg tablet 800 mg PO TID #30 tabs 04/23/20 (units unknown) (unknown) (unknown) (no date) (unknown) (unknown) ibuprofen 800 mg tablet (units unknown) (unknown) (unknown) (no date) (unknown) (unknown) if worse or fo r any questions or concerns (units unknown) (unknown) (unknown) (no date) (unknown) (unknown) inhaler (Dulera) (un its unknown) (unknown) (unknown) (no date) (unknown) (unknown) ketorolac 10 m g tablet 10 mg PO TID PRN pain #14 tabs 08/18/20 (units unknown) (unknown) (unknown) (no date) (unknown) (unknown) ketorolac 10 m g tablet (units unknown) (unknown) (unknown) (no date) (unknown) (unknown) latex Allergy Intermediate Rash Verified 12/15/22 20:12 (units unknown) (unknown) (unknown) (no date) (unknown) (unknown) loratadine 10 mg tablet 10 mg PO QDAY #30 tabs 11/11/20 (units unknown) (unknown) (unknown) (no date) (unknown) (unknown) loratadine 10 mg tablet (units unknown) (unknown) (unknown) (no date) (unknown) (unknown) mcg-5 mcg/actu ation aerosol (units unknown) (unknown) (unknown) (no date) (unknown) (unknown) medication ton ight and starting prophylactic antibiotic. (units unknown) (unknown) (unknown) (no date) (unknown) (unknown) melatonin 10 m g tablet 10 mg PO BEDTIME 03/27/19 04/23/20 (units unknown) (unknown) (unknown) (no date) (unknown) (unknown) melatonin 10 m g tablet (units unknown) (unknown) (unknown) (no date) (unknown) (unknown) metoclopramide HCl 10 mg tablet 10 mg PO Q6H PRN nausea and 07/11/21 (units unknown) (unknown) (unknown) (no date) (unknown) (unknown) metoclopramide HCl [Reglan] 10 mg tablet (units unknown) (unknown) (unknown) (no date) (unknown) (unknown) mg tablet (units unknown) (unknown) (unknown) (no date) (unknown) (unknown) mometasone-for moterol HFA 100 2 inh INH BID #1 inh 01/16/18 (units unknown) (unknown) (unknown) (no date) (unknown) (unknown) mometasone-for moterol [Dulera] 100 MCG/5 MCG HFA aerosol inhaler (units unknown) (unknown) (unknown) (no date) (unknown) (unknown) montelukast 10 mg tablet 10 mg PO QDAY #30 tabs 10/03/19 (units unknown) (unknown) (unknown) (no date) (unknown) (unknown) montelukast 10 mg tablet (units unknown) (unknown) (unknown) (no date) (unknown) (unknown) months. No fev er chills. No facial swelling. Patient went to see her dentist (units unknown) (unknown) (unknown) (no date) (unknown) (unknown) morphine [MORP LENORE] Allergy Severe N+V Verified 12/15/22 20:11 (units unknown) (unknown) (unknown) (no date) (unknown) (unknown) nasolabial fol d. No erythema. No trismus no malocclusion no tongue elevation (units unknown) (unknown) (unknown) (no date) (unknown) (unknown) no drooling. (units unknown) (unknown) (unknown) (no date) (unknown) (unknown) omeprazole 20 mg capsule,delayed 20 mg PO DAILY #30 caps 04/08/20 (units unknown) (unknown) (unknown) (no date) (unknown) (unknown) omeprazole 20 mg capsule,delayed release(DR/EC) (units unknown) (unknown) (unknown) (no date) (unknown) (unknown) ondansetron [ONDANSETRON] AdvReac Intermediate 'MADE MY Verified 12/15/22 20:11 (units unknown) (unknown) (unknown) (no date) (unknown) (unknown) ongoing for ma ny months. Has been slowly decaying and crumbling for many (units unknown) (unknown) (unknown) (no date) (unknown) (unknown) paroxetine [Fr om PAXIL] Allergy Intermediate SAW 3 OF Verified 12/15/22 20:11 (units unknown) (unknown) (unknown) (no date) (unknown) (unknown) precautions re viewed with them. They desire discharge home. Patient was sent (units unknown) (unknown) (unknown) (no date) (unknown) (unknown) prescribed omaira n medication. Please continue full course of antibiotics. Return (units unknown) (unknown) (unknown) (no date) (unknown) (unknown) pseudoephedrin e AdvReac Severe MIGRAINES Verified 12/15/22 20:11 (units unknown) (unknown) (unknown) (no date) (unknown) (unknown) release (units unknown) (unknown) (unknown) (no date) (unknown) (unknown) second hand ex posure: No (units unknown) (unknown) (unknown) (no date) (unknown) (unknown) sertraline [SERTRALINE] AdvReac Mild felt like Verified 12/15/22 20:11 (units unknown) (unknown) (unknown) (no date) (unknown) (unknown) she was (units unknown) (unknown) (unknown) (no date) (unknown) (unknown) start infectio n. Patient has had hydrocodone in the past without difficulty. (units unknown) (unknown) (unknown) (no date) (unknown) (unknown) substance use type: does not use (units unknown) (unknown) (unknown) (no date) (unknown) (unknown) sumatriptan zarate ccinate 25 mg tablet See Rx Instructions PO .COMPLEX #9 10/03/19 (units unknown) (unknown) (unknown) (no date) (unknown) (unknown) sumatriptan zarate ccinate 25 mg tablet (units unknown) (unknown) (unknown) (no date) (unknown) (unknown) surrounding pa lpable abscess. No facial or cheek swelling. No loss of (units unknown) (unknown) (unknown) (no date) (unknown) (unknown) tabs (units unknown) (unknown) (unknown) (no date) (unknown) (unknown) take 1 tab at onset of headache; if no relief may repeat 1 tab in 2hr; max = (units unknown) (unknown) (unknown) (no date) (unknown) (unknown) the left upper tooth/maxillary area. Tooth 13. (units unknown) (unknown) (unknown) (no date) (unknown) (unknown) tonight due to pain. It radiates upwards. No fever chills. Tooth pain is in (units unknown) (unknown) (unknown) (no date) (unknown) (unknown) tooth 13. (units unknown) (unknown) (unknown) (no date) (unknown) (unknown) topiramate 100 mg tablet (Topamax) 100 mg PO BID #60 tabs 03/22/19 (units unknown) (unknown) (unknown) (no date) (unknown) (unknown) topiramate [To pamax] 100 mg tablet (units unknown) (unknown) (unknown) (no date) (unknown) (unknown) vinyl gloves A llergy Severe 'REALLY Uncoded 06/27/21 17:12 (units unknown) (unknown) (unknown) (no date) (unknown) (unknown) without any si de effects or allergic reaction. (units unknown) (unknown) Social History date description facility 2023-03-17 00:00 Never smoked tobacco (finding) [facility] Vital Signs date measurement value units 2023-03-17 00:00 BMI 43.4 kg/m2 2023-03-17 00:00 BP_diastolic 78 mmHg 2023-03-17 00:00 BP_systolic 129 mmHg 2023-03-17 00:00 heart_rate 116 /min 2023-03-17 00:00 height_metric 154.94 cm 2023-03-17 00:00 height_standard 61 in 2023-03-17 00:00 o2_saturation 98 % 2023-03-17 00:00 respiration_rate 18 /min 2023-03-17 00:00 temperature_metric 37.06 C 2023-03-17 00:00 temperature_standard 98.7 F 2023-03-17 00:00 weight_metric 104.32 kg 2023-03-17 00:00 weight_standard 229.99 lb
[2023-04-25 18:45] VITALS: BP 130/72
[2023-04-25 19:18] LABS: CORONAVIRUS 229E-RESP PCR NOT DETECTED
[2023-04-25 19:19] LABS: B. PARAPERTUSSIS- RESP PCR PAN NOT DETECTED; B. PERTUSSIS- RESP PCR PANEL NOT DETECTED; C. PNEUMONIAE- RESP PCR PANEL NOT DETECTED; CORONAVIRUS HKU1-RESP PCR NOT DETECTED; CORONAVIRUS NL63-RESP PCR NOT DETECTED; CORONAVIRUS OC43-RESP PCR NOT DETECTED; HUMAN METAPNEUMOVIRUS NOT DETECTED; INFLUENZA A- RESP PCR PANEL NOT DETECTED; INFLUENZA B - RESP PCR PANEL NOT DETECTED; M. PNEUMONIAE- RESP PCR PANEL NOT DETECTED; PARAINFLUENZA VIRUS 1 NOT DETECTED; PARAINFLUENZA VIRUS 2 NOT DETECTED; PARAINFLUENZA VIRUS 3 DETECTED; PARAINFLUENZA VIRUS 4 NOT DETECTED; RHINOVIRUS/ENTEROVIRUS NOT DETECTED; RSV- RESP PCR PANEL NOT DETECTED; SARS-CoV-2 -RESP PCR PANEL NOT DETECTED
== END 2023-04-25 18:43 | disposition home or self-care (01) ==
LOC: ED 17:59
DX: J06.9 Acute upper respiratory infection, unspecified (principal); Z79.899 Other long term (current) drug therapy; Z20.822 Contact with and (suspected) exposure to COVID-19
CPT/HCPCS: 87633; 99283

== ENCOUNTER 2023-08-11 16:45 | Outpatient (CLI) | payer MEDICAID ==
[2023-08-11 20:32] LABS: BASOPHILS # (AUTO) 0.1 10^3/uL (0.0-0.1); EOSINOPHILS # (AUTO) 0.4 10^3/uL (0.0-0.7); EOSINOPHILS % (AUTO) 4.5 %; HCT - HEMATOCRIT 43.8 % (37.0-47.0); LYMPHOCYTES # (AUTO) 2.1 10^3/uL (1.5-3.5); LYMPHOCYTES % (AUTO) 22.2 %; MEAN CORPUSCULAR HEMOGLOBIN 30.2 pg (27.0-31.0); MEAN CORPUSCULAR VOLUME 94.4 fL (81.0-99.0); MEAN PLATELET VOLUME 10.1 fL (7.9-10.8); MONOCYTES # (AUTO) 0.4 10^3/uL (0.0-1.0); MONOCYTES % (AUTO) 4.3 %; NEUTROPHILS # (AUTO) 6.4 10^3/uL (1.5-6.6); NEUTROPHILS % (AUTO) 67.7 %; PLT - PLATELET COUNT 352 10^3/uL (130-450); RED BLOOD COUNT 4.64 10^6/uL (4.20-5.40); RED CELL DISTRIBUTION WIDTH 13.1 % (12.0-15.0); WHITE BLOOD COUNT 9.5 x10^3/uL (4.8-10.8)
[2023-08-11 20:49] LABS: ALBUMIN 4.5 g/dL (3.2-5.5); ALBUMIN/GLOBULIN RATIO 1.5 (1.0-2.2); ALKALINE PHOSPHATASE 88 IU/L (42-121); ALT ALANINE AMINOTRANSFERASE 11 IU/L (10-60); AMYLASE 35 U/L (28-100); AST ASPARTATE AMINOTRANSFERASE 13 IU/L (10-42); BILIRUBIN,TOTAL 0.2 mg/dL (0.2-1.0); BUN - BLOOD UREA NITROGEN 14 mg/dL (6-20); CALCIUM 9.7 mg/dL (8.5-10.3); CARBON DIOXIDE - CO2 23 mmol/L (21-32); CHLORIDE 106 mmol/L (101-111); CREATININE 0.7 mg/dL (0.6-1.3); GFR - MDRD 98 (>89); GLUCOSE 142 mg/dL (74-104); LIPASE 28 U/L (11-82); POTASSIUM 4.3 mmol/L (3.5-4.5); SODIUM 137 mmol/L (135-145); TOTAL PROTEIN 7.6 g/dL (6.4-8.9)
[2023-08-11 20:53] LABS: HCG,QUALITATIVE BLOOD NEGATIVE
== END 2023-08-11 17:00 | disposition home or self-care (01) ==
LOC: LAB.N 16:45
PROVIDERS: ATTEND Nurse Practitioner
DX: R10.9 Unspecified abdominal pain (principal)
CPT/HCPCS: 36415; 80053; 82150; 83690; 84703; 85025

== ENCOUNTER 2024-05-31 08:00 | Outpatient (CLI) | payer MEDICAID ==
[2024-05-31 18:09] LABS: CALCIUM 10.3 mg/dL (8.5-10.3); CREATININE 0.7 mg/dL (0.6-1.3); POTASSIUM 4.1 mmol/L (3.5-4.5); URIC ACID 6.3 mg/dL (2.3-6.6)
== END 2024-05-31 23:59 | disposition home or self-care (01) ==
LOC: LAB.N 08:00
PROVIDERS: ATTEND Family Medicine
DX: M79.675 Pain in left toe(s) (principal)
CPT/HCPCS: 36415; 80048; 84550; 85651

== ENCOUNTER 2024-05-31 14:45 | Outpatient (CLI) | payer MEDICAID ==
--- NOTE | 2024-05-31 21:03 | XRAY Report ---
PROCEDURE: Foot 3+V LT INDICATIONS: LEFT TOE PAIN TECHNIQUE: 3 views of the foot were obtained. COMPARISON: None FINDINGS: Bones: No fractures or dislocations. No suspicious bony lesions. Soft tissues: Unremarkable. No radiopaque foreign body. IMPRESSION: Normal foot radiographs Reviewed by: Jacob Sweet MD on 05/31/2024 8:02 PM AKBRANDEN Approved by: Jacob Sweet MD on 05/31/2024 8:02 PM AKDT Station ID: [id number]
== END 2024-05-31 14:46 | disposition home or self-care (01) ==
LOC: DI 14:45
PROVIDERS: ATTEND Family Medicine
DX: M79.675 Pain in left toe(s) (principal)
CPT/HCPCS: 36415; 80048; 84550; 85651